=== PATIENT | female | born 1940 | race Caucasian/White ===

== ENCOUNTER 2017-06-05 01:35 | Inpatient (IN) | payer MEDICARE, OTHER ==
[~2017-06-05] VITALS: Ht 162.6 cm; Wt 75.7 kg
[2017-06-05 03:00] VITALS: BP 118/57
[2017-06-05] MEDS ORDERED: ONDANSETRON PF 4 MG/2 ML VIAL. IV PRN (04:00)
[2017-06-05] MEDS ORDERED: CARI350T PO (04:59)
[2017-06-05] MEDS ORDERED: HYDR-2762 PO (04:59)
[2017-06-05] MEDS ORDERED: ASPI-482 PO (04:59)
[2017-06-05] MEDS ORDERED: MULT-658 PO (04:59)
[2017-06-05] MEDS ORDERED: LEVO88TA4 PO (04:59)
[2017-06-05] MEDS ORDERED: QUIN10TA15 PO (04:59)
[2017-06-05] MEDS ORDERED: PIOG1TAB34 PO (04:59)
[2017-06-05] MEDS ORDERED: HYDR-971 PO (04:59)
[2017-06-05] MEDS ORDERED: CHOL10003 PO (04:59)
[2017-06-05] MEDS ORDERED: ATOR40TA59 PO (04:59)
[2017-06-05] MEDS: IV NORMAL SALINE 1000ML BAG 1,000 ML IV SCH ×3 (05:13→23:14)
[2017-06-05 05:30] LABS: BASO % 1 % (0-3); EOS % 0 % (0-3); HEMATOCRIT 32.6 % (36.0-47.0); LYMPH # 0.6 x10^3/uL (1.0-4.8); LYMPH % 6 % (24-48); MEAN CORPUSCULAR HEMOGLOBIN 31 pg (25-35); MEAN CORPUSCULAR HGB CONC 34 g/dL (31-37); MEAN CORPUSCULAR VOLUME 90 fL (79-100); MONO % 8 % (0-9); NEUT % 85 % (31-73); PLATELET COUNT 257 x10^3/uL (140-400); RED CELL DISTRIBUTION WIDTH 13.7 % (11.5-14.5); WHITE BLOOD COUNT 9.9 x10^3/uL (4.0-11.0)
[2017-06-05 05:57] LABS: INR 1.1 (0.8-1.1); PROTHROMBIN TIME PATIENT 13.2 SEC (11.7-14.0)
[2017-06-05 06:03] LABS: CALCIUM 8.6 mg/dL (8.5-10.1); CREATININE 3.4 mg/dL (0.6-1.0); GFR 13.1; POTASSIUM 3.7 mmol/L (3.5-5.1)
[2017-06-05 07:00] VITALS: BP 122/68
[2017-06-05] MEDS: fentaNYL PF VIAL 100 MCG/2 ML VIAL IV PRN ×2 (09:15→17:49)
--- NOTE | 2017-06-05 10:29 | PDOC2 ---
CONSULT Date of Consult Date of Consult DATE: 06/05/17 TIME: 10:24 Reason for Consult Reason for Consult: abd pain and vomiting Referring Physician Referring Physician: Shreyas Identification/Chief Complaint Chief Complaint back pain Problems: Source Source: Patient History of Present Illness Reason for Visit: 77yo female that has been having problems with chronic back pain. Recently, worse had a couple of injections from PCP and on oral pain meds. Developed trouble having bm's not gone in 10 days developed vomiting last night. No more vomiting since admission. Past Medical History Cardiovascular: No pertinent hx Pulmonary: No pertinent hx GI: No pertinent hx Heme/Onc: No pertinent hx Hepatobiliary: No pertinent hx Psych: No pertinent hx Musculoskeletal: low back pain Rheumatologic: No pertinent hx Infectious disease: No pertinent hx ENT: No pertinent hx Renal/: No pertinent hx Endocrine: No pertinent hx Dermatology: No pertinent hx Past Surgical History Past Surgical History: No pertinent history Family History Family History: No Significant Social History No ALCOHOL: none Drugs: None Lives: with Family Current Medications Current Medications Current Medications Sodium Chloride 1,000 ml @ 75 mls/hr [id number] IV Last administered on 05:13; Start 06/05/17 at 04:00 Fentanyl Citrate (Fentanyl 2ml Vial) 50 mcg PRN Q2HR PRN IV SEVERE PAIN Last administered on 06/05/17 09:15; Start 06/05/17 at 04:00 Ondansetron HCl (Zofran) 4 mg PRN Q6HRS PRN IV NAUSEA/VOMITING; Start 06/05/17 at 04:00 Ceftriaxone Sodium 1 gm/ Dextrose 50 ml @ 100 mls/hr Q24H IV ; Start 06/05/17 at 04:00; Status UNV Ceftriaxone Sodium (Rocephin) 1 gm Q24H IVP ; Start 06/05/17 at 22:00 Aspirin (Ecotrin) 81 mg DAILY PO ; Start 06/06/17 at 09:00; Status UNV Atorvastatin Calcium (Lipitor) 40 mg DAILY PO ; Start 06/06/17 at 09:00; Status UNV Carisoprodol (Soma) 350 mg BID PO ; Start 06/05/17 at 21:00; Status UNV Vitamin D (Vitamin D3) 1,000 unit DAILY PO ; Start 06/06/17 at 09:00; Status UNV Acetaminophen/ Hydrocodone Bitart (Lortab 7.5/325) 1 tab PRN Q6HRS PRN PO PAIN ; Start 06/05/17 at 10:15; Status UNV Acetaminophen/ Hydrocodone Bitart (Lortab 5/325) 1 tab PRN Q6HRS PRN PO PAIN; Start 06/05/17 at 10:15; Status UNV Levothyroxine Sodium (Synthroid) 88 mcg DAILY PO ; Start 06/06/17 at 09:00; Status UNV Non-Formulary Medication 1 each DAILY PO ; Start 06/06/17 at 09:00; Status UNV Non-Formulary Medication 1 tab DAILY PO ; Start 06/06/17 at 09:00; Status UNV Magnesium Citrate (Citroma) 296 ml 1X ONCE PO ; Start 06/05/17 at 10:30; Stop 06/05/17 at 10:31; Status UNV Active Scripts Active Reported Vitamin D3 (Cholecalciferol (Vitamin D3)) 1,000 Unit Tablet 1 Tab PO DAILY Soma (Carisoprodol) 350 Mg Tablet 1 Tab PO BID Quinapril Hcl 10 Mg Tablet 1 Tab PO DAILY Pioglitazone-Metformin 15-850 (Pioglitazone Hcl/Metformin Hcl) 1 Each Tablet 1 Each PO DAILY Levothyroxine Sodium 88 Mcg Tablet 1 Tab PO DAILY Hydrocodone-Apap 7.5-325 (Hydrocodone Bit/Acetaminophen) 1 Each Tablet 1 Tab PO PRN Q6HRS PRN [place] 5-325 Tablet (Acetaminophen/Hydrocodone Bitart) 1 Each Tablet 1 Tab PO PRN Q6HRS PRN Centrum Silver Tablet (Multivits-Min/Fa/Lycopene/Lut) 1 Each Tablet 1 Each PO Atorvastatin Calcium 40 Mg Tablet 1 Tab PO DAILY Aspir 81 (Aspirin) 81 Mg Tablet. 1 Tab PO DAILY Allergies Allergies: Coded Allergies: No Known Drug Allergies (Unverified , 05/01/14) ROS Gastrointestinal: Yes Vomiting, Yes Abdominal Pain, Yes Constipation Physical Exam General: Alert, Oriented X3, Cooperative, No acute distress HEENT: Atraumatic Lungs: Clear to auscultation Heart: Regular rate Abdomen: Normal bowel sounds, Soft, No tenderness Extremities: No edema Skin: No significant lesion Neuro: Normal speech Psych/Mental Status: Mental status NL Vitals VITALS Vital Signs Date Time Temp Pulse Resp B/P (MAP) Pulse Ox O2 Delivery O2 Flow Rate FiO2 06/05/17 09:15 Room Air 06/05/17 07:00 97.8 74 16 122/68 (86) 97 97.8 Labs Labs Laboratory Tests Test 06/05/17 05:15 06/05/17 07:24 White Blood Count 9.9 x10^3/uL (4.0-11.0) Red Blood Count 3.60 x10^6/uL (3.50-5.40) Hemoglobin 11.0 g/dL (12.0-15.5) Hematocrit 32.6 % (36.0-47.0) Mean Corpuscular Volume 90 fL (79-100) Mean Corpuscular Hemoglobin 31 pg (25-35) Mean Corpuscular Hemoglobin Concent 34 g/dL (31-37) Red Cell Distribution Width 13.7 % (11.5-14.5) Platelet Count 257 x10^3/uL (140-400) Neutrophils (%) (Auto) 85 % (31-73) Lymphocytes (%) (Auto) 6 % (24-48) Monocytes (%) (Auto) 8 % (0-9) Eosinophils (%) (Auto) 0 % (0-3) Basophils (%) (Auto) 1 % (0-3) Neutrophils # (Auto) 8.4 x10^3uL (1.8-7.7) Lymphocytes # (Auto) 0.6 x10^3/uL (1.0-4.8) Monocytes # (Auto) 0.8 x10^3/uL (0.0-1.1) Eosinophils # (Auto) 0.0 x10^3/uL (0.0-0.7) Basophils # (Auto) 0.0 x10^3/uL (0.0-0.2) Prothrombin Time 13.2 SEC (11.7-14.0) Prothromb Time International Ratio 1.1 (0.8-1.1) Activated Partial Thromboplast Time 22 SEC (24-38) Sodium Level 136 mmol/L (136-145) Potassium Level 3.7 mmol/L (3.5-5.1) Chloride Level 101 mmol/L (98-107) Carbon Dioxide Level 20 mmol/L (21-32) Anion Gap 15 (6-14) Blood Urea Nitrogen 130 mg/dL (7-20) Creatinine 3.4 mg/dL (0.6-1.0) Estimated GFR (Cockcroft-Gault) 13.1 Glucose Level 137 mg/dL (70-99) Calcium Level 8.6 mg/dL (8.5-10.1) Glucose (Fingerstick) 110 mg/dL (70-99) Laboratory Tests Test 06/05/17 05:15 06/05/17 07:24 White Blood Count 9.9 x10^3/uL (4.0-11.0) Red Blood Count 3.60 x10^6/uL (3.50-5.40) Hemoglobin 11.0 g/dL (12.0-15.5) Hematocrit 32.6 % (36.0-47.0) Mean Corpuscular Volume 90 fL (79-100) Mean Corpuscular Hemoglobin 31 pg (25-35) Mean Corpuscular Hemoglobin Concent 34 g/dL (31-37) Red Cell Distribution Width 13.7 % (11.5-14.5) Platelet Count 257 x10^3/uL (140-400) Neutrophils (%) (Auto) 85 % (31-73) Lymphocytes (%) (Auto) 6 % (24-48) Monocytes (%) (Auto) 8 % (0-9) Eosinophils (%) (Auto) 0 % (0-3) Basophils (%) (Auto) 1 % (0-3) Neutrophils # (Auto) 8.4 x10^3uL (1.8-7.7) Lymphocytes # (Auto) 0.6 x10^3/uL (1.0-4.8) Monocytes # (Auto) 0.8 x10^3/uL (0.0-1.1) Eosinophils # (Auto) 0.0 x10^3/uL (0.0-0.7) Basophils # (Auto) 0.0 x10^3/uL (0.0-0.2) Prothrombin Time 13.2 SEC (11.7-14.0) Prothromb Time International Ratio 1.1 (0.8-1.1) Activated Partial Thromboplast Time 22 SEC (24-38) Sodium Level 136 mmol/L (136-145) Potassium Level 3.7 mmol/L (3.5-5.1) Chloride Level 101 mmol/L (98-107) Carbon Dioxide Level 20 mmol/L (21-32) Anion Gap 15 (6-14) Blood Urea Nitrogen 130 mg/dL (7-20) Creatinine 3.4 mg/dL (0.6-1.0) Estimated GFR (Cockcroft-Gault) 13.1 Glucose Level 137 mg/dL (70-99) Calcium Level 8.6 mg/dL (8.5-10.1) Glucose (Fingerstick) 110 mg/dL (70-99) Assessment/Plan Assessment/Plan Constipation from narcotic use Start Miralax No surgical indication NAJMA TAPIA MD Jun 05, 2017 10:29 am
[2017-06-05] MEDS ORDERED: MAGNESIUM CITRATE 296 ML SOLUTION. PO ONE (10:30)
[2017-06-05] MEDS ORDERED: LISINOPRIL 10 MG TABLET PO SCH (11:00)
[2017-06-05] MEDS: CARISOPRODOL 350 MG TABLET PO SCH ×2 (11:00→20:49)
--- NOTE | 2017-06-05 11:04 | HP ---
ADMIT DATE: 06/05/2017 CHIEF COMPLAINT: Abdominal pain and back pain. HISTORY OF PRESENT ILLNESS: The patient is a pleasant elderly female who presented initially to [facility] ER with complaints of back pain, abdominal pain. They did a CAT scan there. It did show a thickened appendix. Her gallbladder also had some sludge. Instantly on her labs, she had a BUN of and a creatinine of . Her lipase is also high at almost 700. The ER doctor called me from there. I went ahead and accepted the patient. She is now being examined in room 438, here in our medical floor. Dr. Melvin has just seen her, he feels like this possibly a lot of this could be caused from her constipation and dehydration. PAST MEDICAL HISTORY: Diabetes, hypothyroidism, hyperlipidemia, carpal tunnel surgeries. ALLERGIES: None. FAMILY HISTORY: Noncontributory. SOCIAL HISTORY: She lives alone. She does not drink, smoke or take drugs. She is retired. 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 MEDICATIONS: Reviewed, please refer to the MRAD. REVIEW OF SYSTEMS: GENERAL: No history of weight change, weakness or fevers. SKIN: No bruising, hair changes or rashes. EYES: No blurred, double or loss of vision. NOSE AND THROAT: No history of nosebleeds, hoarseness or sore throat. HEART: No history of palpitations, chest pain or shortness of breath on exertion. LUNGS: Denies cough, hemoptysis, wheezing or shortness of breath. GASTROINTESTINAL: Denies changes in appetite, nausea, vomiting, diarrhea. She complains of abdominal distention. She complains of constipation. GENITOURINARY: No history of frequency, urgency, hesitancy or nocturia. NEUROLOGIC: Denies history of numbness, tingling, tremor or weakness. PSYCHIATRIC: No history of panic, anxiety or depression. ENDOCRINE: No history of heat or cold intolerance, polyuria or polydipsia. EXTREMITIES: Denies muscle weakness, joint pain, pain on walking or stiffness. MUSCULOSKELETAL: She complains of some back pain. PHYSICAL EXAMINATION: GENERAL: She is alert, soft spoken, slightly confused, but her daughter who is here with her, very good support for her as an RN, she states this might be her meds. VITAL SIGNS: Stable. HEART: Tones seem normal. ABDOMEN: Soft, minimal tenderness. EXTREMITIES: No obvious edema. PSYCHIATRIC: She might be a little depressed, but again she is on some meds and maybe she just has a little flat affect today. Her daughter states she is depressed. LABORATORY DATA: Her urinalysis did show UTI with leukocyte esterase and occasional white cells. White count 11, hemoglobin 12, platelets 304. Electrolytes: Sodium is 134, potassium 3.7, chloride 96, bicarbonate 21, BUN 145, creatinine 4.0. D-dimer is also high at 4.69. ASSESSMENT AND PLAN: An elderly female with multiple issues, but clinically stable. She certainly is constipated. We are going to order her a bottle of mag citrate. I just discussed the case with the nurse and her daughter who is also a nurse. We did consult General Surgery, who just saw the patient, Dr. Melvin. He feels like there is no surgical intervention required at this time. Regarding the acute renal failure, I am not sure if this might be chronic as well, but nevertheless we are going give her normal saline at 75 an hour and consult Nephrology. Check frequent labs, continue her home meds. Regarding the mild urinary tract infection, we will give her some IV antibiotics. PT, OT to evaluate and treat. alf evaluation if family agrees. LOCO POLO DO DR: DAVIDE/edmundo JOB#: [id number] / [id number]
[2017-06-05 11:15] VITALS: BP 125/70
[2017-06-05] MEDS ORDERED: PIOGLITAZONE 15 MG TABLET. PO SCH (11:30)
--- NOTE | 2017-06-05 12:05 | PDOC2 ---
CONSULT Date of Consult Date of Consult DATE: 06/05/17 TIME: 11:58 Reason for Consult Reason for Consult: RENAL FAILURE Referring Physician Referring Physician: MELANI Identification/Chief Complaint Chief Complaint ABD PAIN Problems: Source Source: Chart review History of Present Illness Reason for Visit: THIS IS A 77 YR OLD WITH ABD PAIN. SHE IS ALSO NOTED TO HAVE SACRAL AREA PAIN. IMAGING STUDIES SHOWED BILATERAL SACRAL FRACTURE AND ? L 5 COMPRESSION FRACTURE. NO CKD HX NOTED. NO HX PER PT AND DAUGHTER. SHE IS NOTED TO HAVE A BUN OF 130 AND A CR OF 3.4. HX NOTABLE FOR DAILY USE OF IBUPROFEN LAST COUPLE WEEKS. SHE HAS ALSO BEEN ON QUINAPRIL. PT ALSO HAS HAD N/V WITH ER ABD PAIN. HAD EMESIS ABOUT 4-5 TIMES LAST COUPLE DAYS. KIDNEYS WERE NOTED TO BE MORPHOLOGICALLY UNREMARKABLE ON CT DONE IN [place] Past Medical History Cardiovascular: No pertinent hx Pulmonary: No pertinent hx GI: No pertinent hx Heme/Onc: No pertinent hx Hepatobiliary: No pertinent hx Psych: No pertinent hx Musculoskeletal: low back pain Rheumatologic: No pertinent hx Infectious disease: No pertinent hx ENT: No pertinent hx Renal/: No pertinent hx Endocrine: No pertinent hx Dermatology: No pertinent hx Past Surgical History Past Surgical History: No pertinent history Family History Family History: No Significant Social History No ALCOHOL: none Drugs: None Lives: with Family Current Medications Current Medications Current Medications Sodium Chloride 1,000 ml @ 75 mls/hr [id number] IV Last administered on 05:13; Start 06/05/17 at 04:00 Fentanyl Citrate (Fentanyl 2ml Vial) 50 mcg PRN Q2HR PRN IV SEVERE PAIN Last administered on 06/05/17 09:15; Start 06/05/17 at 04:00 Ondansetron HCl (Zofran) 4 mg PRN Q6HRS PRN IV NAUSEA/VOMITING; Start 06/05/17 at 04:00 Ceftriaxone Sodium 1 gm/ Dextrose 50 ml @ 100 mls/hr Q24H IV ; Start 06/05/17 at 04:00; Status UNV Ceftriaxone Sodium (Rocephin) 1 gm Q24H IVP ; Start 06/05/17 at 22:00 Aspirin (Ecotrin) 81 mg DAILY PO ; Start 06/05/17 at 11:00 Atorvastatin Calcium (Lipitor) 40 mg QHS PO ; Start 06/05/17 at 21:00 Carisoprodol (Soma) 350 mg BID PO ; Start 06/05/17 at 11:00 Vitamin D (Vitamin D3) 1,000 unit DAILY PO ; Start 06/05/17 at 11:00 Acetaminophen/ Hydrocodone Bitart (Lortab 7.5/325) 1 tab PRN Q6HRS PRN PO PAIN ; Start 06/05/17 at 10:15 Acetaminophen/ Hydrocodone Bitart (Lortab 5/325) 1 tab PRN Q6HRS PRN PO PAIN; Start 06/05/17 at 10:15 Levothyroxine Sodium (Synthroid) 88 mcg DAILY07 PO ; Start 06/06/17 at 07:00 Pioglitazone HCl (Actos) 15 mg DAILY PO ; Start 06/05/17 at 11:30; Stop at 11:30; Status DC Lisinopril (Prinivil) 10 mg DAILY PO ; Start 06/05/17 at 11:00 Magnesium Citrate (Citroma) 296 ml 1X ONCE PO ; Start 06/05/17 at 10:30; Stop 06/05/17 at 10:31; Status DC Polyethylene Glycol (miraLAX PACKET) 17 gm DAILY PO ; Start 06/05/17 at 11:00 Metformin HCl (Glucophage) 850 mg DAILY PO ; Start 06/06/17 at 09:00; Stop 04/13 at 09:00; Status DC Active Scripts Active Reported Vitamin D3 (Cholecalciferol (Vitamin D3)) 1,000 Unit Tablet 1 Tab PO DAILY Soma (Carisoprodol) 350 Mg Tablet 1 Tab PO BID Quinapril Hcl 10 Mg Tablet 1 Tab PO DAILY Pioglitazone-Metformin 15-850 (Pioglitazone Hcl/Metformin Hcl) 1 Each Tablet 1 Each PO DAILY Levothyroxine Sodium 88 Mcg Tablet 1 Tab PO DAILY Hydrocodone-Apap 7.5-325 (Hydrocodone Bit/Acetaminophen) 1 Each Tablet 1 Tab PO PRN Q6HRS PRN [place] 5-325 Tablet (Acetaminophen/Hydrocodone Bitart) 1 Each Tablet 1 Tab PO PRN Q6HRS PRN Centrum Silver Tablet (Multivits-Min/Fa/Lycopene/Lut) 1 Each Tablet 1 Each PO Atorvastatin Calcium 40 Mg Tablet 1 Tab PO DAILY Aspir 81 (Aspirin) 81 Mg Tablet. 1 Tab PO DAILY Allergies Allergies: Coded Allergies: No Known Drug Allergies (Unverified , 05/01/14) ROS General: YES: Fatigue, Malaise, Appetite PSYCHOLOGICAL ROS: YES: Anxiety Eyes: Yes Decreased vision HEENT: YES: Heacaches Respiratory: YES: Cough Cardiovascular: yes Chest Pain, yes Lt Headedness Gastrointestinal: Yes Nausea, Yes Vomiting, Yes Abdominal Pain, Yes Constipation Genitourinary: YES Other (NO CHANGE, OCC NOCTURIA) Musculoskeletal: Yes Joint Swelling Neurological: Yes Weakness Skin: Yes Dry Skin Physical Exam General: Alert, Oriented X3, Cooperative, No acute distress, mild distress HEENT: Atraumatic, PERRLA, EOMI, Other (DRY MUCOSA) Lungs: Clear to auscultation Heart: Regular rate, Normal S1, Normal S2 Abdomen: Normal bowel sounds, Soft Extremities: No clubbing Neuro: Normal speech, Cranial nerves 3-12 NL Psych/Mental Status: Mental status NL, Mood NL MUSCULOSKELETAL: No joint tenderness, No deformity, No swelling Vitals VITALS Vital Signs Date Time Temp Pulse Resp B/P (MAP) Pulse Ox O2 Delivery O2 Flow Rate FiO2 06/05/17 11:15 98.2 71 16 125/70 (88) 93 Room Air 98.2 Labs Labs Laboratory Tests Test 06/05/17 05:15 06/05/17 07:24 06/05/17 10:57 White Blood Count 9.9 x10^3/uL (4.0-11.0) Red Blood Count 3.60 x10^6/uL (3.50-5.40) Hemoglobin 11.0 g/dL (12.0-15.5) Hematocrit 32.6 % (36.0-47.0) Mean Corpuscular Volume 90 fL (79-100) Mean Corpuscular Hemoglobin 31 pg (25-35) Mean Corpuscular Hemoglobin Concent 34 g/dL (31-37) Red Cell Distribution Width 13.7 % (11.5-14.5) Platelet Count 257 x10^3/uL (140-400) Neutrophils (%) (Auto) 85 % (31-73) Lymphocytes (%) (Auto) 6 % (24-48) Monocytes (%) (Auto) 8 % (0-9) Eosinophils (%) (Auto) 0 % (0-3) Basophils (%) (Auto) 1 % (0-3) Neutrophils # (Auto) 8.4 x10^3uL (1.8-7.7) Lymphocytes # (Auto) 0.6 x10^3/uL (1.0-4.8) Monocytes # (Auto) 0.8 x10^3/uL (0.0-1.1) Eosinophils # (Auto) 0.0 x10^3/uL (0.0-0.7) Basophils # (Auto) 0.0 x10^3/uL (0.0-0.2) Prothrombin Time 13.2 SEC (11.7-14.0) Prothromb Time International Ratio 1.1 (0.8-1.1) Activated Partial Thromboplast Time 22 SEC (24-38) Sodium Level 136 mmol/L (136-145) Potassium Level 3.7 mmol/L (3.5-5.1) Chloride Level 101 mmol/L (98-107) Carbon Dioxide Level 20 mmol/L (21-32) Anion Gap 15 (6-14) Blood Urea Nitrogen 130 mg/dL (7-20) Creatinine 3.4 mg/dL (0.6-1.0) Estimated GFR (Cockcroft-Gault) 13.1 Glucose Level 137 mg/dL (70-99) Calcium Level 8.6 mg/dL (8.5-10.1) Glucose (Fingerstick) 110 mg/dL (70-99) 108 mg/dL (70-99) Laboratory Tests Test 06/05/17 05:15 06/05/17 07:24 06/05/17 10:57 White Blood Count 9.9 x10^3/uL (4.0-11.0) Red Blood Count 3.60 x10^6/uL (3.50-5.40) Hemoglobin 11.0 g/dL (12.0-15.5) Hematocrit 32.6 % (36.0-47.0) Mean Corpuscular Volume 90 fL (79-100) Mean Corpuscular Hemoglobin 31 pg (25-35) Mean Corpuscular Hemoglobin Concent 34 g/dL (31-37) Red Cell Distribution Width 13.7 % (11.5-14.5) Platelet Count 257 x10^3/uL (140-400) Neutrophils (%) (Auto) 85 % (31-73) Lymphocytes (%) (Auto) 6 % (24-48) Monocytes (%) (Auto) 8 % (0-9) Eosinophils (%) (Auto) 0 % (0-3) Basophils (%) (Auto) 1 % (0-3) Neutrophils # (Auto) 8.4 x10^3uL (1.8-7.7) Lymphocytes # (Auto) 0.6 x10^3/uL (1.0-4.8) Monocytes # (Auto) 0.8 x10^3/uL (0.0-1.1) Eosinophils # (Auto) 0.0 x10^3/uL (0.0-0.7) Basophils # (Auto) 0.0 x10^3/uL (0.0-0.2) Prothrombin Time 13.2 SEC (11.7-14.0) Prothromb Time International Ratio 1.1 (0.8-1.1) Activated Partial Thromboplast Time 22 SEC (24-38) Sodium Level 136 mmol/L (136-145) Potassium Level 3.7 mmol/L (3.5-5.1) Chloride Level 101 mmol/L (98-107) Carbon Dioxide Level 20 mmol/L (21-32) Anion Gap 15 (6-14) Blood Urea Nitrogen 130 mg/dL (7-20) Creatinine 3.4 mg/dL (0.6-1.0) Estimated GFR (Cockcroft-Gault) 13.1 Glucose Level 137 mg/dL (70-99) Calcium Level 8.6 mg/dL (8.5-10.1) Glucose (Fingerstick) 110 mg/dL (70-99) 108 mg/dL (70-99) Assessment/Plan Assessment/Plan IMP CHRISTIN-ATN DEHYDRATION BILATERAL SACRAL FRACTION DM II HTN CONSTIPATION PLAN HOLD HER NAHID-I AND IBUPROFEN USE HOLD HER METFORMIN HYDRATE ENC PO CHRIS GILBERT MD Jun 05, 2017 12:05
--- NOTE | 2017-06-05 12:25 | PDOC2 ---
JOSE E ARNOLD [employer]PERVISOR [employer] ATTENDANT 06/05/17 1225: CARDIAC CONSULT DATE OF CONSULT Date of Consult DATE: 06/05/17 TIME: 12:04 REASON FOR CONSULT Reason for Consult: elevated d dimer HISTORY OF PRESENT ILLNESS HISTORY OF PRESENT ILLNESS Ms sierra is a 77 year old female with history of moderate non obstructive coronary artery disease, hypertension, hyperlipidemia and venous insufficiency. She began having difficulties with low bask and hip pain for which she received a steroid injection with relief. she then developed pain in the opposite hip, was managed with oral pain medications. Yesterday she was apparently found by her daughter to be confused and vomiting so taken to the ED at [facility]. She was found to have sacral fractures and L5 fractures as well as cholecystitis so transferred to [facility] for management. She was additionally noted to have an elevated d dimer so consult was called. she denies any chest discomfort or dyspnea. She does report some mild dyspnea on exertion recently. She denies palpitations, lightheadedness or syncope. She denies any falls recently but does report a fall in July where she fell forward after tripping on something. PAST MEDICAL HISTORY Past Medical History moderate non obstructive coronary artery disease by cath, hypertension, hyperlipidemia, diabetes mellitus, hypothyroidism, venous insufficiency s/p ablation of bilateral saphenous veins, chronic trochanteric bursitis PAST SURGICAL HISTORY Past Surgical History knee surgery FAMILY HISTORY Family History heart disease in mother and father SOCIAL HISTORY Social History non smoker, no significant ETOH, no illicit drugs CURRENT MEDICATIONS CURRENT MEDICATIONS Current Medications Medications (Trade) Dose Ordered Sig/Trever Route PRN Reason Start Time Stop Time Status Last Admin Dose Admin Sodium Chloride 1,000 ml @ 75 mls/hr [id number] IV 06/05/17 04:00 06/05/17 05:13 Fentanyl Citrate (Fentanyl 2ml Vial) 50 mcg PRN Q2HR PRN IV SEVERE PAIN 06/05/17 04:00 06/05/17 09:15 ALLERGIES ALLERGIES: Coded Allergies: No Known Drug Allergies (Unverified , 05/01/14) ROS Review of System as per HPI PHYSICAL EXAM General: Alert, Oriented X3, Cooperative, mild distress HEENT: Atraumatic, EOMI Lungs: Clear to auscultation, Normal air movement Heart: Regular rate, Normal S1, Normal S2, Other (no gallops clicks or rubs) Abdomen: Normal bowel sounds, Soft Extremities: No cyanosis, No edema, Normal pulses Neuro: Normal speech Psych/Mental Status: Mental status NL, Mood NL VITALS VITALS Vital Signs Date Time Temp Pulse Resp B/P (MAP) Pulse Ox O2 Delivery O2 Flow Rate FiO2 06/05/17 11:15 98.2 71 16 125/70 (88) 93 Room Air 98.2 LABS Lab: Laboratory Tests Test 06/05/17 05:15 06/05/17 07:24 06/05/17 10:57 White Blood Count 9.9 x10^3/uL (4.0-11.0) Red Blood Count 3.60 x10^6/uL (3.50-5.40) Hemoglobin 11.0 g/dL (12.0-15.5) Hematocrit 32.6 % (36.0-47.0) Mean Corpuscular Volume 90 fL (79-100) Mean Corpuscular Hemoglobin 31 pg (25-35) Mean Corpuscular Hemoglobin Concent 34 g/dL (31-37) Red Cell Distribution Width 13.7 % (11.5-14.5) Platelet Count 257 x10^3/uL (140-400) Neutrophils (%) (Auto) 85 % (31-73) Lymphocytes (%) (Auto) 6 % (24-48) Monocytes (%) (Auto) 8 % (0-9) Eosinophils (%) (Auto) 0 % (0-3) Basophils (%) (Auto) 1 % (0-3) Neutrophils # (Auto) 8.4 x10^3uL (1.8-7.7) Lymphocytes # (Auto) 0.6 x10^3/uL (1.0-4.8) Monocytes # (Auto) 0.8 x10^3/uL (0.0-1.1) Eosinophils # (Auto) 0.0 x10^3/uL (0.0-0.7) Basophils # (Auto) 0.0 x10^3/uL (0.0-0.2) Prothrombin Time 13.2 SEC (11.7-14.0) Prothromb Time International Ratio 1.1 (0.8-1.1) Activated Partial Thromboplast Time 22 SEC (24-38) Sodium Level 136 mmol/L (136-145) Potassium Level 3.7 mmol/L (3.5-5.1) Chloride Level 101 mmol/L (98-107) Carbon Dioxide Level 20 mmol/L (21-32) Anion Gap 15 (6-14) Blood Urea Nitrogen 130 mg/dL (7-20) Creatinine 3.4 mg/dL (0.6-1.0) Estimated GFR (Cockcroft-Gault) 13.1 Glucose Level 137 mg/dL (70-99) Calcium Level 8.6 mg/dL (8.5-10.1) Glucose (Fingerstick) 110 mg/dL (70-99) 108 mg/dL (70-99) IMAGES IMAGES CT abd pelvis at [facility] reviewed ECHOCARDIOGRAM ECHOCARDIOGRAM 10/22/15 LV function was normal. EF 55-60%. normal wall motion. mild aortic regurgitation. grade 1 diastolic dysfunction. STRESS TEST STRESS TEST MPI -2013 normal perfusion. HEART CATH HEART CATH 10/05/12 RCA 30-40% mid. PLB 70% in 2mm vessel LM no significant disease LAD proximal to mid 50% LCX minor luminal irregularities. OM3 tandem lesions of 70% with FFR of 0.94 ASSESSMENT/PLAN ASSESSMENT/PLAN 1. elevated d dimer - check VQ and LE duplex 2. CAD, moderate - angina free. continue medical therapy 3. sacral and L4 fractures - per Ortho 4. ARF - likely secondary to dehydration? renal consulted. 5. hypertension - in light of renal failure, would discontinue lisinopril at this point. pressure is well controlled. add hydralazine if needed. Problems: MARK ESPOSITO MD 06/05/17 1607: CARDIAC CONSULT ALLERGIES ALLERGIES: Coded Allergies: No Known Drug Allergies (Unverified , 05/01/14) ASSESSMENT/PLAN ASSESSMENT/PLAN Patient seen and examined. Agree with STAPLE FIBER WASHER's assessment and plan. Agree with VQ scan and lower extremity venous duplex scan to evaluate elevated d -dimer. CAD status clinically stable. Continue management of sacral and lumbar fractures per orthopedics team. Renal team following for acute on chronic renal insufficiency. Thank you for your consultation. Problems: JOSE E ARNOLD APRN Jun 05, 2017 12:25 MARK ESPOSITO MD Jun 05, 2017 16:07
--- NOTE | 2017-06-05 12:27 | PDOC ---
Provider Note Provider Note Patient's chart reviewed. Dr. Turcios and I reviewed the x-rays and CT scan, which reveal bilateral sacral fractures and L5 endplate fracture. From ortho standpoint, no surgical intervention necessary. Recommended consult to interventional radiology for consideration of possible sacroplasty. Consult placed to JOSE MIGUEL HILL Jun 05, 2017 12:27 pm
--- NOTE | 2017-06-05 13:47 | RAD ---
Ventilation/perfusion lung scan. History: Elevated d-dimer Ventilation study was done using 33 mCi xenon-133. There is mild patchy areas of decreased ventilation possible COPD which tend of filling on later images. Perfusion images were done using 5.5 mCi technetium 99 MAA. There is no segmental perfusion defect. There is no ventilation/perfusion mismatch Impression: 1. Low probability for a pulmonary embolus.
--- NOTE | 2017-06-05 14:01 | PDOC ---
PULMONARY PROGRESS NOTES Vitals Vital Signs Date Time Temp Pulse Resp B/P (MAP) Pulse Ox O2 Delivery O2 Flow Rate FiO2 06/05/17 11:15 98.2 71 16 125/70 (88) 93 Room Air 98.2 Labs Laboratory Tests Test 06/05/17 05:15 06/05/17 07:24 06/05/17 10:57 White Blood Count 9.9 x10^3/uL (4.0-11.0) Red Blood Count 3.60 x10^6/uL (3.50-5.40) Hemoglobin 11.0 g/dL (12.0-15.5) Hematocrit 32.6 % (36.0-47.0) Mean Corpuscular Volume 90 fL (79-100) Mean Corpuscular Hemoglobin 31 pg (25-35) Mean Corpuscular Hemoglobin Concent 34 g/dL (31-37) Red Cell Distribution Width 13.7 % (11.5-14.5) Platelet Count 257 x10^3/uL (140-400) Neutrophils (%) (Auto) 85 % (31-73) Lymphocytes (%) (Auto) 6 % (24-48) Monocytes (%) (Auto) 8 % (0-9) Eosinophils (%) (Auto) 0 % (0-3) Basophils (%) (Auto) 1 % (0-3) Neutrophils # (Auto) 8.4 x10^3uL (1.8-7.7) Lymphocytes # (Auto) 0.6 x10^3/uL (1.0-4.8) Monocytes # (Auto) 0.8 x10^3/uL (0.0-1.1) Eosinophils # (Auto) 0.0 x10^3/uL (0.0-0.7) Basophils # (Auto) 0.0 x10^3/uL (0.0-0.2) Prothrombin Time 13.2 SEC (11.7-14.0) Prothromb Time International Ratio 1.1 (0.8-1.1) Activated Partial Thromboplast Time 22 SEC (24-38) Sodium Level 136 mmol/L (136-145) Potassium Level 3.7 mmol/L (3.5-5.1) Chloride Level 101 mmol/L (98-107) Carbon Dioxide Level 20 mmol/L (21-32) Anion Gap 15 (6-14) Blood Urea Nitrogen 130 mg/dL (7-20) Creatinine 3.4 mg/dL (0.6-1.0) Estimated GFR (Cockcroft-Gault) 13.1 Glucose Level 137 mg/dL (70-99) Calcium Level 8.6 mg/dL (8.5-10.1) Glucose (Fingerstick) 110 mg/dL (70-99) 108 mg/dL (70-99) Laboratory Tests Test 06/05/17 05:15 06/05/17 07:24 06/05/17 10:57 White Blood Count 9.9 x10^3/uL (4.0-11.0) Red Blood Count 3.60 x10^6/uL (3.50-5.40) Hemoglobin 11.0 g/dL (12.0-15.5) Hematocrit 32.6 % (36.0-47.0) Mean Corpuscular Volume 90 fL (79-100) Mean Corpuscular Hemoglobin 31 pg (25-35) Mean Corpuscular Hemoglobin Concent 34 g/dL (31-37) Red Cell Distribution Width 13.7 % (11.5-14.5) Platelet Count 257 x10^3/uL (140-400) Neutrophils (%) (Auto) 85 % (31-73) Lymphocytes (%) (Auto) 6 % (24-48) Monocytes (%) (Auto) 8 % (0-9) Eosinophils (%) (Auto) 0 % (0-3) Basophils (%) (Auto) 1 % (0-3) Neutrophils # (Auto) 8.4 x10^3uL (1.8-7.7) Lymphocytes # (Auto) 0.6 x10^3/uL (1.0-4.8) Monocytes # (Auto) 0.8 x10^3/uL (0.0-1.1) Eosinophils # (Auto) 0.0 x10^3/uL (0.0-0.7) Basophils # (Auto) 0.0 x10^3/uL (0.0-0.2) Prothrombin Time 13.2 SEC (11.7-14.0) Prothromb Time International Ratio 1.1 (0.8-1.1) Activated Partial Thromboplast Time 22 SEC (24-38) Sodium Level 136 mmol/L (136-145) Potassium Level 3.7 mmol/L (3.5-5.1) Chloride Level 101 mmol/L (98-107) Carbon Dioxide Level 20 mmol/L (21-32) Anion Gap 15 (6-14) Blood Urea Nitrogen 130 mg/dL (7-20) Creatinine 3.4 mg/dL (0.6-1.0) Estimated GFR (Cockcroft-Gault) 13.1 Glucose Level 137 mg/dL (70-99) Calcium Level 8.6 mg/dL (8.5-10.1) Glucose (Fingerstick) 110 mg/dL (70-99) 108 mg/dL (70-99) Medications Active Scripts Medications Dose Route/Sig Max Daily Dose Days Date Category Vitamin D3 (Cholecalciferol (Vitamin D3)) 1,000 Unit Tablet 1 Tab PO DAILY 06/05/17 Reported Soma (Carisoprodol) 350 Mg Tablet 1 Tab PO BID 06/05/17 Reported Quinapril Hcl 10 Mg Tablet 1 Tab PO DAILY 06/05/17 Reported Pioglitazone-Metformin 15-850 (Pioglitazone Hcl/Metformin Hcl) 1 Each Tablet 1 Each PO DAILY 06/05/17 Reported Levothyroxine Sodium 88 Mcg Tablet 1 Tab PO DAILY 06/05/17 Reported Hydrocodone-Apap 7.5-325 (Hydrocodone Bit/Acetaminophen) 1 Each Tablet 1 Tab PO PRN Q6HRS PRN 06/05/17 Reported [place] 5-325 Tablet (Acetaminophen/Hydrocodone Bitart) 1 Each Tablet 1 Tab PO PRN Q6HRS PRN 06/05/17 Reported Centrum Silver Tablet (Multivits-Min/Fa/Lycopene/Lut) 1 Each Tablet 1 Each PO 06/05/17 Reported Atorvastatin Calcium 40 Mg Tablet 1 Tab PO DAILY 06/05/17 Reported Aspir 81 (Aspirin) 81 Mg Tablet. 1 Tab PO DAILY 06/05/17 Reported Impression . NO PE WILL S/O CALL IF NEEDED NICOL QUICK MD Jun 05, 2017 14:01
[2017-06-05] MEDS: ASPIRIN ENTERIC COATED 81 MG TABLET.DR. PO SCH (14:06)
[2017-06-05] MEDS: CHOLECALCIFEROL (VITAMIN D3) 1,000 UNIT TABLET PO SCH (14:06)
[2017-06-05] MEDS: POLYETHYLENE GLYCOL 3350 17 GM PACKET. PO SCH (14:06)
[2017-06-05 15:12] VITALS: BP 129/55
[2017-06-05 19:30] VITALS: BP 130/70
[2017-06-05] MEDS: LACTOBACILLUS RHAMNOSUS GG 1 CAPSULE. PO SCH (20:49)
[2017-06-05] MEDS: ATORVASTATIN CALCIUM 40 MG TABLET. PO SCH (20:49)
[2017-06-05] MEDS: HYDROcodone/APAP 7.5/325MG 1 TAB TABLET PO PRN (20:50)
[2017-06-05] MEDS ORDERED: cefTRIAXone IV Push 1 GM VIAL. IVP SCH (22:00)
--- NOTE | 2017-06-05 22:21 | CONS ---
DATE OF CONSULTATION: 06/05/2017 ATTENDING PHYSICIAN: Alba Pritchett DO CONSULTING PHYSICIAN: Nicol Quick MD REASON FOR CONSULTATION: The patient seen in Pulmonary consultation at the request of Dr. Pritchett for positive D-dimer. HISTORY OF PRESENT ILLNESS: The patient is a 77-year-old that presented mainly because of abdominal pain and chronic lower back pain. D-dimer was checked. It was positive. The patient reports no acute onset of shortness of air associated with syncope or near syncopal episodes. No pleuritic type pain. In fact, she was not short of breath at all. D-dimer was performed, which was elevated. She underwent a VQ scan. I reviewed the VQ scan. There are no significant unmatched perfusion defects. PAST MEDICAL HISTORY: Diabetes, hypothyroidism, hyperlipidemia, carpal tunnel release. ALLERGIES: No known drug allergies. SOCIAL HISTORY: The patient has never smoked. She lives alone. FAMILY HISTORY: No family history of thrombophilia. REVIEW OF SYSTEMS: As indicated above; otherwise, the 10-point system was reviewed and negative. CONSTITUTIONAL: No fever or chills. EYES: No changes in visual acuity. HENT: No nasal congestion or sore throat. PULMONARY: As indicated above. CARDIOVASCULAR: No chest pain or pressure. GASTROINTESTINAL: No nausea, vomiting, diarrhea. GENITOURINARY: No dysuria or frequency. MUSCULOSKELETAL: As indicated above. SKIN: No new skin rashes. NEUROLOGIC: No headaches, diplopia or blurred vision. PHYSICAL EXAMINATION: GENERAL: The patient appeared to be of stated age. She was in no respiratory distress. VITAL SIGNS: O2 saturation on room air 93-94%. HEENT: Eyes: The sclerae were nonicteric. NECK: Jugular venous distention was not elevated. No lymphadenopathy. CHEST: Full expansion. LUNGS: Adequate airway flow with no wheezes. CARDIOVASCULAR: Regular rate and rhythm with S1, S2. No S3. ABDOMEN: Soft, nontender, nondistended. EXTREMITIES: No clubbing, cyanosis or edema. NEUROLOGIC: The patient was awake, alert, following commands. A detailed neuro exam was not performed. LABORATORY DATA: Reviewed. White count was normal. Hemoglobin and hematocrit were noted. Electrolytes were noted. BUN and creatinine were elevated. IMPRESSION: 1. Elevated D-dimer, nonspecific, clinical suspicion for pulmonary embolism is close to 0. A VQ scan was negative. No further workup required. 2. Acute kidney injury. 3. Bilateral sacral fractures. 4. Diabetes. 5. Constipation. 6. Hypertension. PLAN: Pulmonary standpoint of view, no further workup required. I will see the patient in followup as needed. Please let me know if I could be of any further assistance. NICOL QUICK MD DR: STEPHANIE/edmundo JOB#: [id number] / [id number]
[2017-06-05 23:00] VITALS: BP 123/64
[2017-06-06] MEDS: fentaNYL PF VIAL 100 MCG/2 ML VIAL IV PRN (02:41)
[2017-06-06 03:16] VITALS: BP 120/65
[2017-06-06 04:30] LABS: BASO % 0 % (0-3); EOS % 2 % (0-3); HEMATOCRIT 31.4 % (36.0-47.0); HEMOGLOBIN 10.5 g/dL (12.0-15.5); LYMPH # 0.5 x10^3/uL (1.0-4.8); LYMPH % 6 % (24-48); MEAN CORPUSCULAR HEMOGLOBIN 30 pg (25-35); MEAN CORPUSCULAR HGB CONC 33 g/dL (31-37); MEAN CORPUSCULAR VOLUME 91 fL (79-100); MONO % 9 % (0-9); NEUT % 83 % (31-73); PLATELET COUNT 253 x10^3/uL (140-400); RED BLOOD COUNT 3.47 x10^6/uL (3.50-5.40); RED CELL DISTRIBUTION WIDTH 13.6 % (11.5-14.5); WHITE BLOOD COUNT 9.5 x10^3/uL (4.0-11.0)
[2017-06-06 05:02] LABS: CALCIUM 8.4 mg/dL (8.5-10.1); CREATININE 1.7 mg/dL (0.6-1.0); GFR 29.2; POTASSIUM 3.5 mmol/L (3.5-5.1)
[2017-06-06] MEDS: LEVOTHYROXINE 88 MCG TABLET PO SCH (06:20)
[2017-06-06 07:44] VITALS: BP 135/65
--- NOTE | 2017-06-06 08:07 | PDOC ---
SURGICAL PROGRESS NOTE Subjective Doing ok, complains of back pain and having several stools all night Vital Signs Vital Signs Date Time Temp Pulse Resp B/P (MAP) Pulse Ox O2 Delivery O2 Flow Rate FiO2 06/06/17 03:16 98.3 78 18 120/65 (83) 97 Room Air 98.3 I&O Intake and Output 06/06/17 07:00 Intake Total 2527 ml Output Total 2300 ml Balance 227 ml Intake Oral 780 ml IV Total 1747 ml Output Urine Total 2300 ml # Bowel Movements 3 PATIENT HAS A MIRAMONTES: No General: Alert, Oriented X3, Cooperative, mild distress Abdomen: Normal bowel sounds, Soft, No tenderness Labs Laboratory Tests Test 06/05/17 05:15 06/05/17 07:24 06/05/17 10:57 06/05/17 16:31 White Blood Count 9.9 x10^3/uL (4.0-11.0) Red Blood Count 3.60 x10^6/uL (3.50-5.40) Hemoglobin 11.0 g/dL (12.0-15.5) Hematocrit 32.6 % (36.0-47.0) Mean Corpuscular Volume 90 fL (79-100) Mean Corpuscular Hemoglobin 31 pg (25-35) Mean Corpuscular Hemoglobin Concent 34 g/dL (31-37) Red Cell Distribution Width 13.7 % (11.5-14.5) Platelet Count 257 x10^3/uL (140-400) Neutrophils (%) (Auto) 85 % (31-73) Lymphocytes (%) (Auto) 6 % (24-48) Monocytes (%) (Auto) 8 % (0-9) Eosinophils (%) (Auto) 0 % (0-3) Basophils (%) (Auto) 1 % (0-3) Neutrophils # (Auto) 8.4 x10^3uL (1.8-7.7) Lymphocytes # (Auto) 0.6 x10^3/uL (1.0-4.8) Monocytes # (Auto) 0.8 x10^3/uL (0.0-1.1) Eosinophils # (Auto) 0.0 x10^3/uL (0.0-0.7) Basophils # (Auto) 0.0 x10^3/uL (0.0-0.2) Prothrombin Time 13.2 SEC (11.7-14.0) Prothromb Time International Ratio 1.1 (0.8-1.1) Activated Partial Thromboplast Time 22 SEC (24-38) Sodium Level 136 mmol/L (136-145) Potassium Level 3.7 mmol/L (3.5-5.1) Chloride Level 101 mmol/L (98-107) Carbon Dioxide Level 20 mmol/L (21-32) Anion Gap 15 (6-14) Blood Urea Nitrogen 130 mg/dL (7-20) Creatinine 3.4 mg/dL (0.6-1.0) Estimated GFR (Cockcroft-Gault) 13.1 Glucose Level 137 mg/dL (70-99) Calcium Level 8.6 mg/dL (8.5-10.1) Glucose (Fingerstick) 110 mg/dL (70-99) 108 mg/dL (70-99) 155 mg/dL (70-99) Test 06/05/17 21:02 06/06/17 03:45 06/06/17 07:48 Glucose (Fingerstick) 126 mg/dL (70-99) 130 mg/dL (70-99) White Blood Count 9.5 x10^3/uL (4.0-11.0) Red Blood Count 3.47 x10^6/uL (3.50-5.40) Hemoglobin 10.5 g/dL (12.0-15.5) Hematocrit 31.4 % (36.0-47.0) Mean Corpuscular Volume 91 fL (79-100) Mean Corpuscular Hemoglobin 30 pg (25-35) Mean Corpuscular Hemoglobin Concent 33 g/dL (31-37) Red Cell Distribution Width 13.6 % (11.5-14.5) Platelet Count 253 x10^3/uL (140-400) Neutrophils (%) (Auto) 83 % (31-73) Lymphocytes (%) (Auto) 6 % (24-48) Monocytes (%) (Auto) 9 % (0-9) Eosinophils (%) (Auto) 2 % (0-3) Basophils (%) (Auto) 0 % (0-3) Neutrophils # (Auto) 7.9 x10^3uL (1.8-7.7) Lymphocytes # (Auto) 0.5 x10^3/uL (1.0-4.8) Monocytes # (Auto) 0.9 x10^3/uL (0.0-1.1) Eosinophils # (Auto) 0.2 x10^3/uL (0.0-0.7) Basophils # (Auto) 0.0 x10^3/uL (0.0-0.2) Sodium Level 144 mmol/L (136-145) Potassium Level 3.5 mmol/L (3.5-5.1) Chloride Level 109 mmol/L (98-107) Carbon Dioxide Level 22 mmol/L (21-32) Anion Gap 13 (6-14) Blood Urea Nitrogen 90 mg/dL (7-20) Creatinine 1.7 mg/dL (0.6-1.0) Estimated GFR (Cockcroft-Gault) 29.2 Glucose Level 119 mg/dL (70-99) Calcium Level 8.4 mg/dL (8.5-10.1) Lipase 569 U/L (73-393) Laboratory Tests Test 06/05/17 10:57 06/05/17 16:31 06/05/17 21:02 06/06/17 03:45 Glucose (Fingerstick) 108 mg/dL (70-99) 155 mg/dL (70-99) 126 mg/dL (70-99) White Blood Count 9.5 x10^3/uL (4.0-11.0) Red Blood Count 3.47 x10^6/uL (3.50-5.40) Hemoglobin 10.5 g/dL (12.0-15.5) Hematocrit 31.4 % (36.0-47.0) Mean Corpuscular Volume 91 fL (79-100) Mean Corpuscular Hemoglobin 30 pg (25-35) Mean Corpuscular Hemoglobin Concent 33 g/dL (31-37) Red Cell Distribution Width 13.6 % (11.5-14.5) Platelet Count 253 x10^3/uL (140-400) Neutrophils (%) (Auto) 83 % (31-73) Lymphocytes (%) (Auto) 6 % (24-48) Monocytes (%) (Auto) 9 % (0-9) Eosinophils (%) (Auto) 2 % (0-3) Basophils (%) (Auto) 0 % (0-3) Neutrophils # (Auto) 7.9 x10^3uL (1.8-7.7) Lymphocytes # (Auto) 0.5 x10^3/uL (1.0-4.8) Monocytes # (Auto) 0.9 x10^3/uL (0.0-1.1) Eosinophils # (Auto) 0.2 x10^3/uL (0.0-0.7) Basophils # (Auto) 0.0 x10^3/uL (0.0-0.2) Sodium Level 144 mmol/L (136-145) Potassium Level 3.5 mmol/L (3.5-5.1) Chloride Level 109 mmol/L (98-107) Carbon Dioxide Level 22 mmol/L (21-32) Anion Gap 13 (6-14) Blood Urea Nitrogen 90 mg/dL (7-20) Creatinine 1.7 mg/dL (0.6-1.0) Estimated GFR (Cockcroft-Gault) 29.2 Glucose Level 119 mg/dL (70-99) Calcium Level 8.4 mg/dL (8.5-10.1) Lipase 569 U/L (73-393) Test 06/06/17 07:48 Glucose (Fingerstick) 130 mg/dL (70-99) Assessment/Plan Constipation resolved with laxitives Back pain No general surgical issues. Problems: NAJMA TAPIA MD Jun 06, 2017 08:07
[2017-06-06] MEDS ORDERED: metFORMIN 850 MG TABLET PO SCH (09:00)
[2017-06-06] MEDS: LACTOBACILLUS RHAMNOSUS GG 1 CAPSULE. PO SCH ×2 (09:08→21:07)
[2017-06-06] MEDS: CHOLECALCIFEROL (VITAMIN D3) 1,000 UNIT TABLET PO SCH (09:08)
[2017-06-06] MEDS: ASPIRIN ENTERIC COATED 81 MG TABLET.DR. PO SCH (09:08)
[2017-06-06] MEDS: CARISOPRODOL 350 MG TABLET PO SCH ×2 (09:08→21:06)
[2017-06-06] MEDS: POLYETHYLENE GLYCOL 3350 17 GM PACKET. PO SCH (09:09)
[2017-06-06] MEDS: IV NORMAL SALINE 1000ML BAG 1,000 ML IV SCH ×2 (09:09→14:35)
[2017-06-06] MEDS: HYDROcodone/APAP 5/325MG 1 TAB TABLET PO PRN ×2 (09:09→14:53)
[2017-06-06 11:08] VITALS: BP 117/67
--- NOTE | 2017-06-06 11:55 | PDOC ---
Renal-Progress Notes Subjective Notes Notes FEELING BETTER History of Present Illness Hx of present illness STABLE Vitals Vitals Vital Signs Date Time Temp Pulse Resp B/P (MAP) Pulse Ox O2 Delivery O2 Flow Rate FiO2 06/06/17 10:39 Room Air 06/06/17 07:44 97.9 85 20 135/65 (88) 95 97.9 Weight Weight [ ] I.O. Intake and Output Intake and Output 06/06/17 07:00 Intake Total 2527 ml Output Total 2300 ml Balance 227 ml Intake Oral 780 ml IV Total 1747 ml Output Urine Total 2300 ml # Bowel Movements 3 Labs Labs Laboratory Tests Test 06/05/17 16:31 06/05/17 21:02 06/06/17 03:45 06/06/17 07:48 Glucose (Fingerstick) 155 mg/dL (70-99) 126 mg/dL (70-99) 130 mg/dL (70-99) White Blood Count 9.5 x10^3/uL (4.0-11.0) Red Blood Count 3.47 x10^6/uL (3.50-5.40) Hemoglobin 10.5 g/dL (12.0-15.5) Hematocrit 31.4 % (36.0-47.0) Mean Corpuscular Volume 91 fL (79-100) Mean Corpuscular Hemoglobin 30 pg (25-35) Mean Corpuscular Hemoglobin Concent 33 g/dL (31-37) Red Cell Distribution Width 13.6 % (11.5-14.5) Platelet Count 253 x10^3/uL (140-400) Neutrophils (%) (Auto) 83 % (31-73) Lymphocytes (%) (Auto) 6 % (24-48) Monocytes (%) (Auto) 9 % (0-9) Eosinophils (%) (Auto) 2 % (0-3) Basophils (%) (Auto) 0 % (0-3) Neutrophils # (Auto) 7.9 x10^3uL (1.8-7.7) Lymphocytes # (Auto) 0.5 x10^3/uL (1.0-4.8) Monocytes # (Auto) 0.9 x10^3/uL (0.0-1.1) Eosinophils # (Auto) 0.2 x10^3/uL (0.0-0.7) Basophils # (Auto) 0.0 x10^3/uL (0.0-0.2) Sodium Level 144 mmol/L (136-145) Potassium Level 3.5 mmol/L (3.5-5.1) Chloride Level 109 mmol/L (98-107) Carbon Dioxide Level 22 mmol/L (21-32) Anion Gap 13 (6-14) Blood Urea Nitrogen 90 mg/dL (7-20) Creatinine 1.7 mg/dL (0.6-1.0) Estimated GFR (Cockcroft-Gault) 29.2 Glucose Level 119 mg/dL (70-99) Calcium Level 8.4 mg/dL (8.5-10.1) Lipase 569 U/L (73-393) Review of Systems Constitutional: yes: weakness, alert, oriented Ears/Nose/Throat: Yes: no symptom reported Eyes: Yes: no symptom reported Pulmonary: Yes no symptom reported Cardiovascular: Yes no symptom reported Gastrointestional: Yes: no symptom reported Genitourinary: Yes: no symptom reported Musculoskeletal: Yes: joint pain Skin: Yes no symptom reported Psychiatric/Neurological: Yes: no symptom reported Endocrine: Yes: no symptom reported Physical Exam General Appearance: no apparent distress Skin: warm Respiratory: bilateral CTA Heart: S1S2 Abdomen: soft, bowel sounds present Genitourinary: bladder flat Extremities: pulses present, no edema Assessment Assessment IMP DEHYDRATION CHRISTIN-BETTER WITH CR DOWN TO 1.7 L5 PLATE FX BILATERAL SACRAL FX DM II HTN PLAN ENC PO DECREASE IVF RATE LABS IN AM CHRIS GILBERT MD Jun 06, 2017 11:55
--- NOTE | 2017-06-06 13:02 | PDOC ---
G I PROGRESS NOTE Reason for Follow-up Abd pain/constipation Subjective Moving small stools Physical Exam Lungs clear CV S1 S2 ABD +BS, soft, mild epigastric tenderness Review of Relevant I have reviewed the following items mikey (where applicable) has been applied. Labs Laboratory Tests Test 06/05/17 05:15 06/05/17 07:24 06/05/17 10:57 06/05/17 16:31 White Blood Count 9.9 x10^3/uL (4.0-11.0) Red Blood Count 3.60 x10^6/uL (3.50-5.40) Hemoglobin 11.0 g/dL (12.0-15.5) Hematocrit 32.6 % (36.0-47.0) Mean Corpuscular Volume 90 fL (79-100) Mean Corpuscular Hemoglobin 31 pg (25-35) Mean Corpuscular Hemoglobin Concent 34 g/dL (31-37) Red Cell Distribution Width 13.7 % (11.5-14.5) Platelet Count 257 x10^3/uL (140-400) Neutrophils (%) (Auto) 85 % (31-73) Lymphocytes (%) (Auto) 6 % (24-48) Monocytes (%) (Auto) 8 % (0-9) Eosinophils (%) (Auto) 0 % (0-3) Basophils (%) (Auto) 1 % (0-3) Neutrophils # (Auto) 8.4 x10^3uL (1.8-7.7) Lymphocytes # (Auto) 0.6 x10^3/uL (1.0-4.8) Monocytes # (Auto) 0.8 x10^3/uL (0.0-1.1) Eosinophils # (Auto) 0.0 x10^3/uL (0.0-0.7) Basophils # (Auto) 0.0 x10^3/uL (0.0-0.2) Prothrombin Time 13.2 SEC (11.7-14.0) Prothromb Time International Ratio 1.1 (0.8-1.1) Activated Partial Thromboplast Time 22 SEC (24-38) Sodium Level 136 mmol/L (136-145) Potassium Level 3.7 mmol/L (3.5-5.1) Chloride Level 101 mmol/L (98-107) Carbon Dioxide Level 20 mmol/L (21-32) Anion Gap 15 (6-14) Blood Urea Nitrogen 130 mg/dL (7-20) Creatinine 3.4 mg/dL (0.6-1.0) Estimated GFR (Cockcroft-Gault) 13.1 Glucose Level 137 mg/dL (70-99) Calcium Level 8.6 mg/dL (8.5-10.1) Glucose (Fingerstick) 110 mg/dL (70-99) 108 mg/dL (70-99) 155 mg/dL (70-99) Test 06/05/17 21:02 06/06/17 03:45 06/06/17 07:48 Glucose (Fingerstick) 126 mg/dL (70-99) 130 mg/dL (70-99) White Blood Count 9.5 x10^3/uL (4.0-11.0) Red Blood Count 3.47 x10^6/uL (3.50-5.40) Hemoglobin 10.5 g/dL (12.0-15.5) Hematocrit 31.4 % (36.0-47.0) Mean Corpuscular Volume 91 fL (79-100) Mean Corpuscular Hemoglobin 30 pg (25-35) Mean Corpuscular Hemoglobin Concent 33 g/dL (31-37) Red Cell Distribution Width 13.6 % (11.5-14.5) Platelet Count 253 x10^3/uL (140-400) Neutrophils (%) (Auto) 83 % (31-73) Lymphocytes (%) (Auto) 6 % (24-48) Monocytes (%) (Auto) 9 % (0-9) Eosinophils (%) (Auto) 2 % (0-3) Basophils (%) (Auto) 0 % (0-3) Neutrophils # (Auto) 7.9 x10^3uL (1.8-7.7) Lymphocytes # (Auto) 0.5 x10^3/uL (1.0-4.8) Monocytes # (Auto) 0.9 x10^3/uL (0.0-1.1) Eosinophils # (Auto) 0.2 x10^3/uL (0.0-0.7) Basophils # (Auto) 0.0 x10^3/uL (0.0-0.2) Sodium Level 144 mmol/L (136-145) Potassium Level 3.5 mmol/L (3.5-5.1) Chloride Level 109 mmol/L (98-107) Carbon Dioxide Level 22 mmol/L (21-32) Anion Gap 13 (6-14) Blood Urea Nitrogen 90 mg/dL (7-20) Creatinine 1.7 mg/dL (0.6-1.0) Estimated GFR (Cockcroft-Gault) 29.2 Glucose Level 119 mg/dL (70-99) Calcium Level 8.4 mg/dL (8.5-10.1) Lipase 569 U/L (73-393) Laboratory Tests Test 06/05/17 16:31 06/05/17 21:02 06/06/17 03:45 06/06/17 07:48 Glucose (Fingerstick) 155 mg/dL (70-99) 126 mg/dL (70-99) 130 mg/dL (70-99) White Blood Count 9.5 x10^3/uL (4.0-11.0) Red Blood Count 3.47 x10^6/uL (3.50-5.40) Hemoglobin 10.5 g/dL (12.0-15.5) Hematocrit 31.4 % (36.0-47.0) Mean Corpuscular Volume 91 fL (79-100) Mean Corpuscular Hemoglobin 30 pg (25-35) Mean Corpuscular Hemoglobin Concent 33 g/dL (31-37) Red Cell Distribution Width 13.6 % (11.5-14.5) Platelet Count 253 x10^3/uL (140-400) Neutrophils (%) (Auto) 83 % (31-73) Lymphocytes (%) (Auto) 6 % (24-48) Monocytes (%) (Auto) 9 % (0-9) Eosinophils (%) (Auto) 2 % (0-3) Basophils (%) (Auto) 0 % (0-3) Neutrophils # (Auto) 7.9 x10^3uL (1.8-7.7) Lymphocytes # (Auto) 0.5 x10^3/uL (1.0-4.8) Monocytes # (Auto) 0.9 x10^3/uL (0.0-1.1) Eosinophils # (Auto) 0.2 x10^3/uL (0.0-0.7) Basophils # (Auto) 0.0 x10^3/uL (0.0-0.2) Sodium Level 144 mmol/L (136-145) Potassium Level 3.5 mmol/L (3.5-5.1) Chloride Level 109 mmol/L (98-107) Carbon Dioxide Level 22 mmol/L (21-32) Anion Gap 13 (6-14) Blood Urea Nitrogen 90 mg/dL (7-20) Creatinine 1.7 mg/dL (0.6-1.0) Estimated GFR (Cockcroft-Gault) 29.2 Glucose Level 119 mg/dL (70-99) Calcium Level 8.4 mg/dL (8.5-10.1) Lipase 569 U/L (73-393) Medications Current Medications Sodium Chloride 1,000 ml @ 75 mls/hr [id number] IV Last administered on 14:05; Start 06/05/17 at 04:00 Fentanyl Citrate (Fentanyl 2ml Vial) 50 mcg PRN Q2HR PRN IV SEVERE PAIN Last administered on 06/06/17 02:41; Start 06/05/17 at 04:00 Ondansetron HCl (Zofran) 4 mg PRN Q6HRS PRN IV NAUSEA/VOMITING; Start 06/05/17 at 04:00 Ceftriaxone Sodium 1 gm/ Dextrose 50 ml @ 100 mls/hr Q24H IV ; Start 06/05/17 at 04:00; Status UNV Ceftriaxone Sodium (Rocephin) 1 gm Q24H IVP Last administered on 06/05/17 22: 11; Start 06/05/17 at 22:00 Aspirin (Ecotrin) 81 mg DAILY PO Last administered on 06/06/17 09:08; Start 06/05/17 at 11:00 Atorvastatin Calcium (Lipitor) 40 mg QHS PO Last administered on 06/05/17 20: 49; Start 06/05/17 at 21:00 Carisoprodol (Soma) 350 mg BID PO Last administered on 06/06/17 09:08; Start 06/05/17 at 11:00 Vitamin D (Vitamin D3) 1,000 unit DAILY PO Last administered on 06/06/17 09: 08; Start 06/05/17 at 11:00 Acetaminophen/ Hydrocodone Bitart (Lortab 7.5/325) 1 tab PRN Q6HRS PRN PO PAIN Last administered on 06/05/17 20:50; Start 06/05/17 at 10:15 Acetaminophen/ Hydrocodone Bitart (Lortab 5/325) 1 tab PRN Q6HRS PRN PO PAIN Last administered on 06/06/17 09:09; Start 06/05/17 at 10:15 Levothyroxine Sodium (Synthroid) 88 mcg DAILY07 PO Last administered on 06:20; Start 06/06/17 at 07:00 Pioglitazone HCl (Actos) 15 mg DAILY PO ; Start 06/05/17 at 11:30; Stop at 11:30; Status DC Lisinopril (Prinivil) 10 mg DAILY PO ; Start 06/05/17 at 11:00; Stop 06/05/17 at 12:05; Status DC Magnesium Citrate (Citroma) 296 ml 1X ONCE PO Last administered on 06/05/17 14:05; Start 06/05/17 at 10:30; Stop 06/05/17 at 10:31; Status DC Polyethylene Glycol (miraLAX PACKET) 17 gm DAILY PO Last administered on 14:06; Start 06/05/17 at 11:00 Metformin HCl (Glucophage) 850 mg DAILY PO ; Start 06/06/17 at 09:00; Stop 04/13 at 09:00; Status DC Lactobacillus Rhamnosus (Culturelle) 1 cap BID PO Last administered on 09:08; Start 06/05/17 at 21:00 Active Scripts Active Reported Vitamin D3 (Cholecalciferol (Vitamin D3)) 1,000 Unit Tablet 1 Tab PO DAILY Soma (Carisoprodol) 350 Mg Tablet 1 Tab PO BID Quinapril Hcl 10 Mg Tablet 1 Tab PO DAILY Pioglitazone-Metformin 15-850 (Pioglitazone Hcl/Metformin Hcl) 1 Each Tablet 1 Each PO DAILY Levothyroxine Sodium 88 Mcg Tablet 1 Tab PO DAILY Hydrocodone-Apap 7.5-325 (Hydrocodone Bit/Acetaminophen) 1 Each Tablet 1 Tab PO PRN Q6HRS PRN [place] 5-325 Tablet (Acetaminophen/Hydrocodone Bitart) 1 Each Tablet 1 Tab PO PRN Q6HRS PRN Centrum Silver Tablet (Multivits-Min/Fa/Lycopene/Lut) 1 Each Tablet 1 Each PO Atorvastatin Calcium 40 Mg Tablet 1 Tab PO DAILY Aspir 81 (Aspirin) 81 Mg Tablet. 1 Tab PO DAILY Vitals/I & O Vital Sign - Last 24 Hours 06/05/17 06/05/17 06/05/17 06/05/17 15:12 17:49 19:30 20:00 Temp 98.1 97.6 98.1 97.6 Pulse 80 87 Resp 18 18 B/P (MAP) 129/55 (79) 130/70 (90) Pulse Ox 99 92 O2 Delivery Room Air Room Air Room Air Room Air 06/05/17 06/05/17 06/05/17 06/06/17 20:50 21:50 23:00 02:41 Temp 98.0 98.0 Pulse 86 Resp 18 18 18 18 B/P (MAP) 123/64 (83) Pulse Ox 92 94 94 94 O2 Delivery Room Air Room Air Room Air Room Air 06/06/17 06/06/17 06/06/17 06/06/17 03:11 03:16 07:35 07:44 Temp 98.3 97.9 98.3 97.9 Pulse 78 85 Resp 18 18 20 B/P (MAP) 120/65 (83) 135/65 (88) Pulse Ox 97 97 95 O2 Delivery Room Air Room Air Room Air Room Air 06/06/17 06/06/17 06/06/17 09:09 10:39 11:08 Temp 98.2 98.2 Pulse 77 Resp 20 B/P (MAP) 117/67 (84) Pulse Ox 96 O2 Delivery Room Air Room Air Room Air Intake and Output 06/05/17 06/05/17 06/06/17 15:00 23:00 07:00 Intake Total 573 ml 1954 ml Output Total 800 ml 1500 ml Balance -227 ml 454 ml Problem List Abd pain- multifactorial in etiology with biochemical pancreatitis and opioid induced constipation Plan serial LFTS US liver consider colonoscopy if constipation remains symptomatic Full note dictated AUGIE SEO MD Jun 06, 2017 13:02
--- NOTE | 2017-06-06 14:57 | PDOC ---
PROGRESS NOTES Chief Complaint Chief Complaint Abd pain/constipation Dehydration Acute Kidney injury B/l sacral Fx DM II HTN History of Present Illness History of Present Illness Pt seen and examined today at the bedside, daughter and family present during examination, questions and concerns addressed BUN and Creatinine improving, (90 and 1.7) Pt. NPO for IR sacroplasty tomorrow Family reports patient is sleeping poorly Vitals Vitals Vital Signs Date Time Temp Pulse Resp B/P (MAP) Pulse Ox O2 Delivery O2 Flow Rate FiO2 06/06/17 11:08 98.2 77 20 117/67 (84) 96 Room Air 98.2 Physical Exam Physical Exam Eyes: Scleral anicteric General: Alert, Oriented X3, Cooperative, mild distress Heart: Regular rate, Normal S1, Normal S2, Other (no gallops clicks or rubs) Lungs: Clear, Other (No wheezes or crackles) Abdomen: Normal bowel sounds, Soft, No tenderness Extremities: No cyanosis, No edema, Normal pulses Skin: No rashes, No significant lesion Labs LABS Laboratory Tests Test 06/05/17 16:31 06/05/17 21:02 06/06/17 03:45 06/06/17 07:48 Glucose (Fingerstick) 155 mg/dL (70-99) 126 mg/dL (70-99) 130 mg/dL (70-99) White Blood Count 9.5 x10^3/uL (4.0-11.0) Red Blood Count 3.47 x10^6/uL (3.50-5.40) Hemoglobin 10.5 g/dL (12.0-15.5) Hematocrit 31.4 % (36.0-47.0) Mean Corpuscular Volume 91 fL (79-100) Mean Corpuscular Hemoglobin 30 pg (25-35) Mean Corpuscular Hemoglobin Concent 33 g/dL (31-37) Red Cell Distribution Width 13.6 % (11.5-14.5) Platelet Count 253 x10^3/uL (140-400) Neutrophils (%) (Auto) 83 % (31-73) Lymphocytes (%) (Auto) 6 % (24-48) Monocytes (%) (Auto) 9 % (0-9) Eosinophils (%) (Auto) 2 % (0-3) Basophils (%) (Auto) 0 % (0-3) Neutrophils # (Auto) 7.9 x10^3uL (1.8-7.7) Lymphocytes # (Auto) 0.5 x10^3/uL (1.0-4.8) Monocytes # (Auto) 0.9 x10^3/uL (0.0-1.1) Eosinophils # (Auto) 0.2 x10^3/uL (0.0-0.7) Basophils # (Auto) 0.0 x10^3/uL (0.0-0.2) Sodium Level 144 mmol/L (136-145) Potassium Level 3.5 mmol/L (3.5-5.1) Chloride Level 109 mmol/L (98-107) Carbon Dioxide Level 22 mmol/L (21-32) Anion Gap 13 (6-14) Blood Urea Nitrogen 90 mg/dL (7-20) Creatinine 1.7 mg/dL (0.6-1.0) Estimated GFR (Cockcroft-Gault) 29.2 Glucose Level 119 mg/dL (70-99) Calcium Level 8.4 mg/dL (8.5-10.1) Lipase 569 U/L (73-393) Review of Systems Review of Systems Gen: Denies fever, chills, sweats CV: Denies chest pain Resp: Denies shortness of breath Assessment and Plan Assessmemt and Plan Assessment: Abd pain/constipation Dehydration Acute Kidney injury B/l sacral Fx DM II HTN Plan: Trazodone 50mg PO ordered for sleeping Discontinued Barnes cath SNU eval in progress IR sacroplasty in am Continue home medications Continue IVF 75cc/hr Continue Zofran for nausea Recheck labs in am Problems: Comment Review of Relevant I have reviewed the following items mikey (where applicable) has been applied. Labs Laboratory Tests Test 06/05/17 05:15 06/05/17 07:24 06/05/17 10:57 06/05/17 16:31 White Blood Count 9.9 x10^3/uL (4.0-11.0) Red Blood Count 3.60 x10^6/uL (3.50-5.40) Hemoglobin 11.0 g/dL (12.0-15.5) Hematocrit 32.6 % (36.0-47.0) Mean Corpuscular Volume 90 fL (79-100) Mean Corpuscular Hemoglobin 31 pg (25-35) Mean Corpuscular Hemoglobin Concent 34 g/dL (31-37) Red Cell Distribution Width 13.7 % (11.5-14.5) Platelet Count 257 x10^3/uL (140-400) Neutrophils (%) (Auto) 85 % (31-73) Lymphocytes (%) (Auto) 6 % (24-48) Monocytes (%) (Auto) 8 % (0-9) Eosinophils (%) (Auto) 0 % (0-3) Basophils (%) (Auto) 1 % (0-3) Neutrophils # (Auto) 8.4 x10^3uL (1.8-7.7) Lymphocytes # (Auto) 0.6 x10^3/uL (1.0-4.8) Monocytes # (Auto) 0.8 x10^3/uL (0.0-1.1) Eosinophils # (Auto) 0.0 x10^3/uL (0.0-0.7) Basophils # (Auto) 0.0 x10^3/uL (0.0-0.2) Prothrombin Time 13.2 SEC (11.7-14.0) Prothromb Time International Ratio 1.1 (0.8-1.1) Activated Partial Thromboplast Time 22 SEC (24-38) Sodium Level 136 mmol/L (136-145) Potassium Level 3.7 mmol/L (3.5-5.1) Chloride Level 101 mmol/L (98-107) Carbon Dioxide Level 20 mmol/L (21-32) Anion Gap 15 (6-14) Blood Urea Nitrogen 130 mg/dL (7-20) Creatinine 3.4 mg/dL (0.6-1.0) Estimated GFR (Cockcroft-Gault) 13.1 Glucose Level 137 mg/dL (70-99) Calcium Level 8.6 mg/dL (8.5-10.1) Glucose (Fingerstick) 110 mg/dL (70-99) 108 mg/dL (70-99) 155 mg/dL (70-99) Test 06/05/17 21:02 06/06/17 03:45 06/06/17 07:48 Glucose (Fingerstick) 126 mg/dL (70-99) 130 mg/dL (70-99) White Blood Count 9.5 x10^3/uL (4.0-11.0) Red Blood Count 3.47 x10^6/uL (3.50-5.40) Hemoglobin 10.5 g/dL (12.0-15.5) Hematocrit 31.4 % (36.0-47.0) Mean Corpuscular Volume 91 fL (79-100) Mean Corpuscular Hemoglobin 30 pg (25-35) Mean Corpuscular Hemoglobin Concent 33 g/dL (31-37) Red Cell Distribution Width 13.6 % (11.5-14.5) Platelet Count 253 x10^3/uL (140-400) Neutrophils (%) (Auto) 83 % (31-73) Lymphocytes (%) (Auto) 6 % (24-48) Monocytes (%) (Auto) 9 % (0-9) Eosinophils (%) (Auto) 2 % (0-3) Basophils (%) (Auto) 0 % (0-3) Neutrophils # (Auto) 7.9 x10^3uL (1.8-7.7) Lymphocytes # (Auto) 0.5 x10^3/uL (1.0-4.8) Monocytes # (Auto) 0.9 x10^3/uL (0.0-1.1) Eosinophils # (Auto) 0.2 x10^3/uL (0.0-0.7) Basophils # (Auto) 0.0 x10^3/uL (0.0-0.2) Sodium Level 144 mmol/L (136-145) Potassium Level 3.5 mmol/L (3.5-5.1) Chloride Level 109 mmol/L (98-107) Carbon Dioxide Level 22 mmol/L (21-32) Anion Gap 13 (6-14) Blood Urea Nitrogen 90 mg/dL (7-20) Creatinine 1.7 mg/dL (0.6-1.0) Estimated GFR (Cockcroft-Gault) 29.2 Glucose Level 119 mg/dL (70-99) Calcium Level 8.4 mg/dL (8.5-10.1) Lipase 569 U/L (73-393) Laboratory Tests Test 06/05/17 16:31 06/05/17 21:02 06/06/17 03:45 06/06/17 07:48 Glucose (Fingerstick) 155 mg/dL (70-99) 126 mg/dL (70-99) 130 mg/dL (70-99) White Blood Count 9.5 x10^3/uL (4.0-11.0) Red Blood Count 3.47 x10^6/uL (3.50-5.40) Hemoglobin 10.5 g/dL (12.0-15.5) Hematocrit 31.4 % (36.0-47.0) Mean Corpuscular Volume 91 fL (79-100) Mean Corpuscular Hemoglobin 30 pg (25-35) Mean Corpuscular Hemoglobin Concent 33 g/dL (31-37) Red Cell Distribution Width 13.6 % (11.5-14.5) Platelet Count 253 x10^3/uL (140-400) Neutrophils (%) (Auto) 83 % (31-73) Lymphocytes (%) (Auto) 6 % (24-48) Monocytes (%) (Auto) 9 % (0-9) Eosinophils (%) (Auto) 2 % (0-3) Basophils (%) (Auto) 0 % (0-3) Neutrophils # (Auto) 7.9 x10^3uL (1.8-7.7) Lymphocytes # (Auto) 0.5 x10^3/uL (1.0-4.8) Monocytes # (Auto) 0.9 x10^3/uL (0.0-1.1) Eosinophils # (Auto) 0.2 x10^3/uL (0.0-0.7) Basophils # (Auto) 0.0 x10^3/uL (0.0-0.2) Sodium Level 144 mmol/L (136-145) Potassium Level 3.5 mmol/L (3.5-5.1) Chloride Level 109 mmol/L (98-107) Carbon Dioxide Level 22 mmol/L (21-32) Anion Gap 13 (6-14) Blood Urea Nitrogen 90 mg/dL (7-20) Creatinine 1.7 mg/dL (0.6-1.0) Estimated GFR (Cockcroft-Gault) 29.2 Glucose Level 119 mg/dL (70-99) Calcium Level 8.4 mg/dL (8.5-10.1) Lipase 569 U/L (73-393) Medications Current Medications Sodium Chloride 1,000 ml @ 75 mls/hr [id number] IV Last administered on 14:35; Start 06/05/17 at 04:00 Fentanyl Citrate (Fentanyl 2ml Vial) 50 mcg PRN Q2HR PRN IV SEVERE PAIN Last administered on 06/06/17 02:41; Start 06/05/17 at 04:00 Ondansetron HCl (Zofran) 4 mg PRN Q6HRS PRN IV NAUSEA/VOMITING; Start 06/05/17 at 04:00 Ceftriaxone Sodium 1 gm/ Dextrose 50 ml @ 100 mls/hr Q24H IV ; Start 06/05/17 at 04:00; Status UNV Ceftriaxone Sodium (Rocephin) 1 gm Q24H IVP Last administered on 06/05/17 22: 11; Start 06/05/17 at 22:00 Aspirin (Ecotrin) 81 mg DAILY PO Last administered on 06/06/17 09:08; Start 06/05/17 at 11:00 Atorvastatin Calcium (Lipitor) 40 mg QHS PO Last administered on 06/05/17 20: 49; Start 06/05/17 at 21:00 Carisoprodol (Soma) 350 mg BID PO Last administered on 06/06/17 09:08; Start 06/05/17 at 11:00 Vitamin D (Vitamin D3) 1,000 unit DAILY PO Last administered on 06/06/17 09: 08; Start 06/05/17 at 11:00 Acetaminophen/ Hydrocodone Bitart (Lortab 7.5/325) 1 tab PRN Q6HRS PRN PO PAIN Last administered on 06/05/17 20:50; Start 06/05/17 at 10:15 Acetaminophen/ Hydrocodone Bitart (Lortab 5/325) 1 tab PRN Q6HRS PRN PO PAIN Last administered on 06/06/17 09:09; Start 06/05/17 at 10:15 Levothyroxine Sodium (Synthroid) 88 mcg DAILY07 PO Last administered on 06:20; Start 06/06/17 at 07:00 Pioglitazone HCl (Actos) 15 mg DAILY PO ; Start 06/05/17 at 11:30; Stop at 11:30; Status DC Lisinopril (Prinivil) 10 mg DAILY PO ; Start 06/05/17 at 11:00; Stop 06/05/17 at 12:05; Status DC Magnesium Citrate (Citroma) 296 ml 1X ONCE PO Last administered on 06/05/17 14:05; Start 06/05/17 at 10:30; Stop 06/05/17 at 10:31; Status DC Polyethylene Glycol (miraLAX PACKET) 17 gm DAILY PO Last administered on 14:06; Start 06/05/17 at 11:00 Metformin HCl (Glucophage) 850 mg DAILY PO ; Start 06/06/17 at 09:00; Stop 04/13 at 09:00; Status DC Lactobacillus Rhamnosus (Culturelle) 1 cap BID PO Last administered on 09:08; Start 06/05/17 at 21:00 Active Scripts Active Reported Vitamin D3 (Cholecalciferol (Vitamin D3)) 1,000 Unit Tablet 1 Tab PO DAILY Soma (Carisoprodol) 350 Mg Tablet 1 Tab PO BID Quinapril Hcl 10 Mg Tablet 1 Tab PO DAILY Pioglitazone-Metformin 15-850 (Pioglitazone Hcl/Metformin Hcl) 1 Each Tablet 1 Each PO DAILY Levothyroxine Sodium 88 Mcg Tablet 1 Tab PO DAILY Hydrocodone-Apap 7.5-325 (Hydrocodone Bit/Acetaminophen) 1 Each Tablet 1 Tab PO PRN Q6HRS PRN Eagar 5-325 Tablet (Acetaminophen/Hydrocodone Bitart) 1 Each Tablet 1 Tab PO PRN Q6HRS PRN Centrum Silver Tablet (Multivits-Min/Fa/Lycopene/Lut) 1 Each Tablet 1 Each PO Atorvastatin Calcium 40 Mg Tablet 1 Tab PO DAILY Aspir 81 (Aspirin) 81 Mg Tablet. 1 Tab PO DAILY Vitals/I & O Vital Sign - Last 24 Hours 06/05/17 06/05/17 06/05/17 06/05/17 15:12 17:49 19:30 20:00 Temp 98.1 97.6 98.1 97.6 Pulse 80 87 Resp 18 18 B/P (MAP) 129/55 (79) 130/70 (90) Pulse Ox 99 92 O2 Delivery Room Air Room Air Room Air Room Air 06/05/17 06/05/17 06/05/17 06/06/17 20:50 21:50 23:00 02:41 Temp 98.0 98.0 Pulse 86 Resp 18 18 B/P (MAP) 123/64 (83) Pulse Ox 92 94 94 94 O2 Delivery Room Air Room Air Room Air Room Air 06/06/17 06/06/17 06/06/17 06/06/17 03:11 03:16 07:35 07:44 Temp 98.3 97.9 98.3 97.9 Pulse 78 85 Resp 18 18 20 B/P (MAP) 120/65 (83) 135/65 (88) Pulse Ox 97 97 95 O2 Delivery Room Air Room Air Room Air Room Air 06/06/17 06/06/17 06/06/17 09:09 10:39 11:08 Temp 98.2 98.2 Pulse 77 Resp 20 B/P (MAP) 117/67 (84) Pulse Ox 96 O2 Delivery Room Air Room Air Room Air Intake and Output 06/05/17 06/05/17 06/06/17 15:00 23:00 07:00 Intake Total 573 ml 1954 ml Output Total 800 ml 1500 ml Balance -227 ml 454 ml LOCO POLO III DO Jun 06, 2017 14:57
[2017-06-06 15:22] VITALS: BP 127/62
[2017-06-06 19:30] VITALS: BP 128/69
[2017-06-06] MEDS: ATORVASTATIN CALCIUM 40 MG TABLET. PO SCH (21:06)
[2017-06-06] MEDS: CEFPODOXIME PROXETIL 100 MG TABLET. PO SCH (21:06)
[2017-06-06] MEDS: traZODone 50 MG TABLET. PO SCH (21:07)
[2017-06-06] MEDS: PHENYLEPH/MINERAL OIL/PETROLAT RECTAL OINTMENT 28GM TUBE. RC PRN (21:10)
[2017-06-06 23:12] VITALS: BP 116/63
[2017-06-07] MEDS: HYDROcodone/APAP 7.5/325MG 1 TAB TABLET PO PRN ×3 (01:13→21:54)
--- NOTE | 2017-06-07 01:15 | CONS ---
DATE OF CONSULTATION: 06/06/2017 GASTROENTEROLOGY CONSULTATION REASON FOR CONSULTATION: Abdominal pain and constipation. HISTORY OF PRESENT ILLNESS: This is a 77-year-old female with past medical history significant for diabetes, hypothyroidism, hyperlipidemia and carpal tunnel syndrome, who was seen with back pain and a lipase of 700. CT scan revealed possible thickened appendix as well as some gallbladder sludge. She has had increased difficulties moving her bowels since starting on some of her pain medications in the past 2 weeks and notes that since she started to move her bowels, her pain has actually improved. She has had a colonoscopy approximately 10 years ago, which was unrevealing at that time. No bleeding. No change in weight. No additional symptoms are encountered. PAST MEDICAL HISTORY: Diabetes, hypothyroidism, hyperlipidemia and carpal tunnel surgery. ALLERGIES: None. MEDICATIONS: Include levothyroxine, ceftriaxone, Lipitor, MiraLax, vitamin D, Soma, Ecotrin, Lortab, Zofran, and Fentanyl. SOCIAL HISTORY: She is retired. She does not drink or smoke. FAMILY HISTORY: Noncontributory. REVIEW OF SYSTEMS: Per above. PHYSICAL EXAMINATION: GENERAL: This is a well-nourished, well-developed female. VITAL SIGNS: Temperature is 98.2, pulse 67, respirations 20 and blood pressure 117/67. HEENT EXAMINATION: Normocephalic and atraumatic head. Pupils and extraocular not tested. Sclerae anicteric. NECK: Supple. LUNGS: Clear. CARDIOVASCULAR EXAMINATION: Reveals an S1, S2, without S3, S4 or appreciable murmur. ABDOMEN: Exam reveals soft abdomen, normal bowel sounds, without appreciable hepatosplenomegaly, with mild right lower quadrant tenderness to deep palpation. EXTREMITIES: Reveals no cyanosis, clubbing or edema. LABORATORY DATA: Hemoglobin 10.5, hematocrit 31.4, white count 9.5 and platelet count 253,000. Sodium 144, potassium 3.5, chloride 109, BUN is 90, creatinine is 1.7 and glucose is 119. Lipase is 569. V/Q scan was low probability for pulmonary embolus. IMPRESSION AND PLAN: Abdominal pain with elevated lipase. Most likely, it is multifactorial in etiology. Opioid-induced constipation certainly is a differential as well as smoldering pancreatitis. We would recommend that serial enzymes be followed and ultrasound be considered if LFTs remain elevated with lipase. AUGIE SEO MD DR: Lydia JOB#: [id number] / [id number] LUCIA Tan MD
[2017-06-07] MEDS: IV NORMAL SALINE 1000ML BAG 1,000 ML IV SCH (02:47)
[2017-06-07 03:10] VITALS: BP 134/66
[2017-06-07 04:52] LABS: BASO % 0 % (0-3); EOS % 3 % (0-3); HEMATOCRIT 30.9 % (36.0-47.0); HEMOGLOBIN 10.3 g/dL (12.0-15.5); LYMPH # 0.8 x10^3/uL (1.0-4.8); LYMPH % 8 % (24-48); MEAN CORPUSCULAR HEMOGLOBIN 31 pg (25-35); MEAN CORPUSCULAR HGB CONC 33 g/dL (31-37); MEAN CORPUSCULAR VOLUME 92 fL (79-100); MONO % 8 % (0-9); NEUT % 81 % (31-73); PLATELET COUNT 227 x10^3/uL (140-400); RED BLOOD COUNT 3.36 x10^6/uL (3.50-5.40); WHITE BLOOD COUNT 9.9 x10^3/uL (4.0-11.0)
[2017-06-07 07:00] VITALS: BP 129/55
[2017-06-07] MEDS: LEVOTHYROXINE 88 MCG TABLET PO SCH (07:00)
[2017-06-07 07:49] LABS: ALBUMIN 2.6 g/dL (3.4-5.0); ALBUMIN/GLOBULIN RATIO 0.8 (1.0-1.7); CALCIUM 8.1 mg/dL (8.5-10.1); CREATININE 1.1 mg/dL (0.6-1.0); GFR 48.3; POTASSIUM 3.3 mmol/L (3.5-5.1); TOTAL BILIRUBIN 0.3 mg/dL (0.2-1.0); TOTAL PROTEIN 5.9 g/dL (6.4-8.2)
[2017-06-07] MEDS ORDERED: POTASSIUM CHLORIDE 20 MEQ TABLET.ER. PO ONE ×2 (09:00→12:00)
[2017-06-07] MEDS ORDERED: POTASSIUM CL 20MEQ-0.45% NACL 1,000 ML IV ONE (09:00)
--- NOTE | 2017-06-07 09:12 | PDOC ---
PROGRESS NOTES Chief Complaint Chief Complaint Abd pain/constipation, acute ileus, Dehydration, vasomotor nephropathy, POA Acute Kidney injury improving, now with hypernatremia and hypokalemia B/l sacral Fx DM II, HTN History of Present Illness History of Present Illness Pt seen and examined today at the bedside, daughter and family present during examination, questions and concerns addressed BUN and Creatinine improving, 90 and 1.7,on 06/06, 40 and 1.1 today had considered sacroplasty, cancelled, change IV fluid, hypernatremia, hypokalemia, Vitals Vitals Vital Signs Date Time Temp Pulse Resp B/P (MAP) Pulse Ox O2 Delivery O2 Flow Rate FiO2 06/07/17 03:10 97.4 70 18 134/66 (88) 95 Room Air 97.4 Physical Exam Physical Exam Eyes: Scleral anicteric General: Alert, Oriented X3, Cooperative, mild distress Heart: Regular rate, Normal S1, Normal S2, Other (no gallops clicks or rubs) Lungs: Clear, Other (No wheezes or crackles) Abdomen: Normal bowel sounds, Soft, No tenderness Extremities: No cyanosis, No edema, Normal pulses Skin: No rashes, No significant lesion Labs LABS Laboratory Tests Test 06/06/17 11:42 06/06/17 16:47 06/06/17 21:11 06/07/17 04:38 Glucose (Fingerstick) 154 mg/dL (70-99) 104 mg/dL (70-99) 123 mg/dL (70-99) White Blood Count 9.9 x10^3/uL (4.0-11.0) Red Blood Count 3.36 x10^6/uL (3.50-5.40) Hemoglobin 10.3 g/dL (12.0-15.5) Hematocrit 30.9 % (36.0-47.0) Mean Corpuscular Volume 92 fL (79-100) Mean Corpuscular Hemoglobin 31 pg (25-35) Mean Corpuscular Hemoglobin Concent 33 g/dL (31-37) Red Cell Distribution Width 14.0 % (11.5-14.5) Platelet Count 227 x10^3/uL (140-400) Neutrophils (%) (Auto) 81 % (31-73) Lymphocytes (%) (Auto) 8 % (24-48) Monocytes (%) (Auto) 8 % (0-9) Eosinophils (%) (Auto) 3 % (0-3) Basophils (%) (Auto) 0 % (0-3) Neutrophils # (Auto) 8.0 x10^3uL (1.8-7.7) Lymphocytes # (Auto) 0.8 x10^3/uL (1.0-4.8) Monocytes # (Auto) 0.8 x10^3/uL (0.0-1.1) Eosinophils # (Auto) 0.3 x10^3/uL (0.0-0.7) Basophils # (Auto) 0.0 x10^3/uL (0.0-0.2) Test 06/07/17 07:25 06/07/17 08:26 Sodium Level 148 mmol/L (136-145) Potassium Level 3.3 mmol/L (3.5-5.1) Chloride Level 113 mmol/L (98-107) Carbon Dioxide Level 23 mmol/L (21-32) Anion Gap 12 (6-14) Blood Urea Nitrogen 40 mg/dL (7-20) Creatinine 1.1 mg/dL (0.6-1.0) Estimated GFR (Cockcroft-Gault) 48.3 BUN/Creatinine Ratio 36 (6-20) Glucose Level 104 mg/dL (70-99) Calcium Level 8.1 mg/dL (8.5-10.1) Total Bilirubin 0.3 mg/dL (0.2-1.0) Aspartate Amino Transf (AST/SGOT) 26 U/L (15-37) Alanine Aminotransferase (ALT/SGPT) 22 U/L (14-59) Alkaline Phosphatase 138 U/L (46-116) Total Protein 5.9 g/dL (6.4-8.2) Albumin 2.6 g/dL (3.4-5.0) Albumin/Globulin Ratio 0.8 (1.0-1.7) Amylase Level 74 U/L (25-115) Glucose (Fingerstick) 91 mg/dL (70-99) Review of Systems Review of Systems dry mouth no n.v.d Assessment and Plan Assessmemt and Plan change IV fluid OOB, ambulate, PT and OT plan SNU placement soon Problems: Comment Review of Relevant I have reviewed the following items mikey (where applicable) has been applied. Labs Laboratory Tests Test 06/05/17 10:57 06/05/17 16:31 06/05/17 21:02 06/06/17 03:45 Glucose (Fingerstick) 108 mg/dL (70-99) 155 mg/dL (70-99) 126 mg/dL (70-99) White Blood Count 9.5 x10^3/uL (4.0-11.0) Red Blood Count 3.47 x10^6/uL (3.50-5.40) Hemoglobin 10.5 g/dL (12.0-15.5) Hematocrit 31.4 % (36.0-47.0) Mean Corpuscular Volume 91 fL (79-100) Mean Corpuscular Hemoglobin 30 pg (25-35) Mean Corpuscular Hemoglobin Concent 33 g/dL (31-37) Red Cell Distribution Width 13.6 % (11.5-14.5) Platelet Count 253 x10^3/uL (140-400) Neutrophils (%) (Auto) 83 % (31-73) Lymphocytes (%) (Auto) 6 % (24-48) Monocytes (%) (Auto) 9 % (0-9) Eosinophils (%) (Auto) 2 % (0-3) Basophils (%) (Auto) 0 % (0-3) Neutrophils # (Auto) 7.9 x10^3uL (1.8-7.7) Lymphocytes # (Auto) 0.5 x10^3/uL (1.0-4.8) Monocytes # (Auto) 0.9 x10^3/uL (0.0-1.1) Eosinophils # (Auto) 0.2 x10^3/uL (0.0-0.7) Basophils # (Auto) 0.0 x10^3/uL (0.0-0.2) Sodium Level 144 mmol/L (136-145) Potassium Level 3.5 mmol/L (3.5-5.1) Chloride Level 109 mmol/L (98-107) Carbon Dioxide Level 22 mmol/L (21-32) Anion Gap 13 (6-14) Blood Urea Nitrogen 90 mg/dL (7-20) Creatinine 1.7 mg/dL (0.6-1.0) Estimated GFR (Cockcroft-Gault) 29.2 Glucose Level 119 mg/dL (70-99) Calcium Level 8.4 mg/dL (8.5-10.1) Lipase 569 U/L (73-393) Test 06/06/17 07:48 06/06/17 11:42 06/06/17 16:47 06/06/17 21:11 Glucose (Fingerstick) 130 mg/dL (70-99) 154 mg/dL (70-99) 104 mg/dL (70-99) 123 mg/dL (70-99) Test 06/07/17 04:38 06/07/17 07:25 06/07/17 08:26 White Blood Count 9.9 x10^3/uL (4.0-11.0) Red Blood Count 3.36 x10^6/uL (3.50-5.40) Hemoglobin 10.3 g/dL (12.0-15.5) Hematocrit 30.9 % (36.0-47.0) Mean Corpuscular Volume 92 fL (79-100) Mean Corpuscular Hemoglobin 31 pg (25-35) Mean Corpuscular Hemoglobin Concent 33 g/dL (31-37) Red Cell Distribution Width 14.0 % (11.5-14.5) Platelet Count 227 x10^3/uL (140-400) Neutrophils (%) (Auto) 81 % (31-73) Lymphocytes (%) (Auto) 8 % (24-48) Monocytes (%) (Auto) 8 % (0-9) Eosinophils (%) (Auto) 3 % (0-3) Basophils (%) (Auto) 0 % (0-3) Neutrophils # (Auto) 8.0 x10^3uL (1.8-7.7) Lymphocytes # (Auto) 0.8 x10^3/uL (1.0-4.8) Monocytes # (Auto) 0.8 x10^3/uL (0.0-1.1) Eosinophils # (Auto) 0.3 x10^3/uL (0.0-0.7) Basophils # (Auto) 0.0 x10^3/uL (0.0-0.2) Sodium Level 148 mmol/L (136-145) Potassium Level 3.3 mmol/L (3.5-5.1) Chloride Level 113 mmol/L (98-107) Carbon Dioxide Level 23 mmol/L (21-32) Anion Gap 12 (6-14) Blood Urea Nitrogen 40 mg/dL (7-20) Creatinine 1.1 mg/dL (0.6-1.0) Estimated GFR (Cockcroft-Gault) 48.3 BUN/Creatinine Ratio 36 (6-20) Glucose Level 104 mg/dL (70-99) Calcium Level 8.1 mg/dL (8.5-10.1) Total Bilirubin 0.3 mg/dL (0.2-1.0) Aspartate Amino Transf (AST/SGOT) 26 U/L (15-37) Alanine Aminotransferase (ALT/SGPT) 22 U/L (14-59) Alkaline Phosphatase 138 U/L (46-116) Total Protein 5.9 g/dL (6.4-8.2) Albumin 2.6 g/dL (3.4-5.0) Albumin/Globulin Ratio 0.8 (1.0-1.7) Amylase Level 74 U/L (25-115) Glucose (Fingerstick) 91 mg/dL (70-99) Laboratory Tests Test 06/06/17 11:42 06/06/17 16:47 06/06/17 21:11 06/07/17 04:38 Glucose (Fingerstick) 154 mg/dL (70-99) 104 mg/dL (70-99) 123 mg/dL (70-99) White Blood Count 9.9 x10^3/uL (4.0-11.0) Red Blood Count 3.36 x10^6/uL (3.50-5.40) Hemoglobin 10.3 g/dL (12.0-15.5) Hematocrit 30.9 % (36.0-47.0) Mean Corpuscular Volume 92 fL (79-100) Mean Corpuscular Hemoglobin 31 pg (25-35) Mean Corpuscular Hemoglobin Concent 33 g/dL (31-37) Red Cell Distribution Width 14.0 % (11.5-14.5) Platelet Count 227 x10^3/uL (140-400) Neutrophils (%) (Auto) 81 % (31-73) Lymphocytes (%) (Auto) 8 % (24-48) Monocytes (%) (Auto) 8 % (0-9) Eosinophils (%) (Auto) 3 % (0-3) Basophils (%) (Auto) 0 % (0-3) Neutrophils # (Auto) 8.0 x10^3uL (1.8-7.7) Lymphocytes # (Auto) 0.8 x10^3/uL (1.0-4.8) Monocytes # (Auto) 0.8 x10^3/uL (0.0-1.1) Eosinophils # (Auto) 0.3 x10^3/uL (0.0-0.7) Basophils # (Auto) 0.0 x10^3/uL (0.0-0.2) Test 06/07/17 07:25 06/07/17 08:26 Sodium Level 148 mmol/L (136-145) Potassium Level 3.3 mmol/L (3.5-5.1) Chloride Level 113 mmol/L (98-107) Carbon Dioxide Level 23 mmol/L (21-32) Anion Gap 12 (6-14) Blood Urea Nitrogen 40 mg/dL (7-20) Creatinine 1.1 mg/dL (0.6-1.0) Estimated GFR (Cockcroft-Gault) 48.3 BUN/Creatinine Ratio 36 (6-20) Glucose Level 104 mg/dL (70-99) Calcium Level 8.1 mg/dL (8.5-10.1) Total Bilirubin 0.3 mg/dL (0.2-1.0) Aspartate Amino Transf (AST/SGOT) 26 U/L (15-37) Alanine Aminotransferase (ALT/SGPT) 22 U/L (14-59) Alkaline Phosphatase 138 U/L (46-116) Total Protein 5.9 g/dL (6.4-8.2) Albumin 2.6 g/dL (3.4-5.0) Albumin/Globulin Ratio 0.8 (1.0-1.7) Amylase Level 74 U/L (25-115) Glucose (Fingerstick) 91 mg/dL (70-99) Medications Current Medications Sodium Chloride 1,000 ml @ 75 mls/hr [id number] IV Last administered on t 02:47; Start 06/05/17 at 04:00; Stop 06/07/17 at 08:59; Status DC Fentanyl Citrate (Fentanyl 2ml Vial) 50 mcg PRN Q2HR PRN IV SEVERE PAIN Last administered on 06/06/17 02:41; Start 06/05/17 at 04:00 Ondansetron HCl (Zofran) 4 mg PRN Q6HRS PRN IV NAUSEA/VOMITING; Start 06/05/17 at 04:00 Ceftriaxone Sodium 1 gm/ Dextrose 50 ml @ 100 mls/hr Q24H IV ; Start 06/05/17 at 04:00; Status UNV Ceftriaxone Sodium (Rocephin) 1 gm Q24H IVP Last administered on 06/05/17 22: 11; Start 06/05/17 at 22:00; Stop 06/06/17 at 14:45; Status DC Aspirin (Ecotrin) 81 mg DAILY PO Last administered on 06/06/17 09:08; Start 06/05/17 at 11:00 Atorvastatin Calcium (Lipitor) 40 mg QHS PO Last administered on 06/06/17 21: 06; Start 06/05/17 at 21:00 Carisoprodol (Soma) 350 mg BID PO Last administered on 06/06/17 21:06; Start 06/05/17 at 11:00 Vitamin D (Vitamin D3) 1,000 unit DAILY PO Last administered on 06/06/17 09: 08; Start 06/05/17 at 11:00 Acetaminophen/ Hydrocodone Bitart (Lortab 7.5/325) 1 tab PRN Q6HRS PRN PO PAIN Last administered on 06/07/17 01:13; Start 06/05/17 at 10:15 Acetaminophen/ Hydrocodone Bitart (Lortab 5/325) 1 tab PRN Q6HRS PRN PO PAIN Last administered on 06/06/17 14:53; Start 06/05/17 at 10:15 Levothyroxine Sodium (Synthroid) 88 mcg DAILY07 PO Last administered on 06:20; Start 06/06/17 at 07:00 Pioglitazone HCl (Actos) 15 mg DAILY PO ; Start 06/05/17 at 11:30; Stop at 11:30; Status DC Lisinopril (Prinivil) 10 mg DAILY PO ; Start 06/05/17 at 11:00; Stop 06/05/17 at 12:05; Status DC Magnesium Citrate (Citroma) 296 ml 1X ONCE PO Last administered on 06/05/17 14:05; Start 06/05/17 at 10:30; Stop 06/05/17 at 10:31; Status DC Polyethylene Glycol (miraLAX PACKET) 17 gm DAILY PO Last administered on 14:06; Start 06/05/17 at 11:00 Metformin HCl (Glucophage) 850 mg DAILY PO ; Start 06/06/17 at 09:00; Stop 04/13 at 09:00; Status DC Lactobacillus Rhamnosus (Culturelle) 1 cap BID PO Last administered on 21:07; Start 06/05/17 at 21:00 Trazodone HCl (Desyrel) 50 mg QHS PO Last administered on 06/06/17 21:07; Start 06/06/17 at 21:00 Cefpodoxime Proxetil (Vantin) 100 mg BID PO Last administered on 06/06/17 21: 06; Start 06/06/17 at 21:00; Stop 06/13/17 at 09:01 Phenyleph/Shark Oil/Min Oil/Petrol (Preparation H) 1 allen TID PRN PRN RC RECTAL PAIN Last administered on 06/06/17 21:10; Start 06/06/17 at 18:30 Potassium Chloride/Sodium Chloride 1,000 ml @ 75 mls/hr 1X ONCE IV ; Start at 09:00; Stop 06/07/17 at 22:19 Potassium Chloride (Klor-Con) 40 meq 1X ONCE PO ; Start 06/07/17 at 09:00; Stop 06/07/17 at 09:04; Status DC Saliva Substitute (Biotene Moisturizing Mouth) 2 spray PRN Q15MIN PRN PO DRY MOUTH; Start 06/07/17 at 09:15; Status UNV Active Scripts Active Reported Vitamin D3 (Cholecalciferol (Vitamin D3)) 1,000 Unit Tablet 1 Tab PO DAILY Soma (Carisoprodol) 350 Mg Tablet 1 Tab PO BID Quinapril Hcl 10 Mg Tablet 1 Tab PO DAILY Pioglitazone-Metformin 15-850 (Pioglitazone Hcl/Metformin Hcl) 1 Each Tablet 1 Each PO DAILY Levothyroxine Sodium 88 Mcg Tablet 1 Tab PO DAILY Hydrocodone-Apap 7.5-325 (Hydrocodone Bit/Acetaminophen) 1 Each Tablet 1 Tab PO PRN Q6HRS PRN [place] 5-325 Tablet (Acetaminophen/Hydrocodone Bitart) 1 Each Tablet 1 Tab PO PRN Q6HRS PRN Centrum Silver Tablet (Multivits-Min/Fa/Lycopene/Lut) 1 Each Tablet 1 Each PO Atorvastatin Calcium 40 Mg Tablet 1 Tab PO DAILY Aspir 81 (Aspirin) 81 Mg Tablet. 1 Tab PO DAILY Vitals/I & O Vital Sign - Last 24 Hours 06/06/17 06/06/17 06/06/17 06/06/17 11:08 14:53 15:22 16:00 Temp 98.2 98.4 98.2 98.4 Pulse 77 73 Resp 20 18 B/P (MAP) 117/67 (84) 127/62 (83) Pulse Ox 96 95 O2 Delivery Room Air Room Air Room Air Room Air 06/06/17 06/06/17 06/06/17 06/07/17 19:30 20:00 23:12 01:13 Temp 97.9 98.8 97.9 98.8 Pulse 84 115 Resp 18 18 18 B/P (MAP) 128/69 (88) 116/63 (80) Pulse Ox 97 95 95 O2 Delivery Room Air Room Air Room Air Room Air 06/07/17 06/07/17 02:13 03:10 Temp 97.4 97.4 Pulse 70 Resp 18 18 B/P (MAP) 134/66 (88) Pulse Ox 95 O2 Delivery Room Air Room Air Intake and Output 06/06/17 06/06/17 06/07/17 15:00 23:00 07:00 Intake Total 877 ml 420 ml 1106 ml Output Total 750 ml Balance 127 ml 420 ml 1106 ml JEFF ADAME MD Jun 07, 2017 09:12
[2017-06-07] MEDS: CARISOPRODOL 350 MG TABLET PO SCH ×2 (09:17→21:53)
[2017-06-07] MEDS: ASPIRIN ENTERIC COATED 81 MG TABLET.DR. PO SCH (09:17)
[2017-06-07] MEDS: CEFPODOXIME PROXETIL 100 MG TABLET. PO SCH ×2 (09:17→21:54)
[2017-06-07] MEDS: CHOLECALCIFEROL (VITAMIN D3) 1,000 UNIT TABLET PO SCH (09:17)
[2017-06-07] MEDS: LACTOBACILLUS RHAMNOSUS GG 1 CAPSULE. PO SCH ×2 (09:17→21:53)
[2017-06-07] MEDS: POLYETHYLENE GLYCOL 3350 17 GM PACKET. PO SCH (09:18)
--- NOTE | 2017-06-07 10:30 | PDOC ---
Subjective: Subjective: Back pain. Has been stooling, still might feel a little constipated. No abd pain or vomiting. Objective: Objective: 7 stools charted. MRIs ordered. Vital Signs: Vital Signs Date Time Temp Pulse Resp B/P (MAP) Pulse Ox O2 Delivery O2 Flow Rate FiO2 06/07/17 10:20 16 Room Air 06/07/17 07:00 97.5 71 129/55 (79) 97 97.5 Labs: Laboratory Tests Test 06/06/17 11:42 06/06/17 16:47 06/06/17 21:11 06/07/17 04:38 Glucose (Fingerstick) 154 mg/dL 104 mg/dL 123 mg/dL White Blood Count 9.9 x10^3/uL Red Blood Count 3.36 x10^6/uL Hemoglobin 10.3 g/dL Hematocrit 30.9 % Mean Corpuscular Volume 92 fL Mean Corpuscular Hemoglobin 31 pg Mean Corpuscular Hemoglobin Concent 33 g/dL Red Cell Distribution Width 14.0 % Platelet Count 227 x10^3/uL Neutrophils (%) (Auto) 81 % Lymphocytes (%) (Auto) 8 % Monocytes (%) (Auto) 8 % Eosinophils (%) (Auto) 3 % Basophils (%) (Auto) 0 % Neutrophils # (Auto) 8.0 x10^3uL Lymphocytes # (Auto) 0.8 x10^3/uL Monocytes # (Auto) 0.8 x10^3/uL Eosinophils # (Auto) 0.3 x10^3/uL Basophils # (Auto) 0.0 x10^3/uL Test 06/07/17 07:25 06/07/17 08:26 Sodium Level 148 mmol/L Potassium Level 3.3 mmol/L Chloride Level 113 mmol/L Carbon Dioxide Level 23 mmol/L Anion Gap 12 Blood Urea Nitrogen 40 mg/dL Creatinine 1.1 mg/dL Estimated GFR (Cockcroft-Gault) 48.3 BUN/Creatinine Ratio 36 Glucose Level 104 mg/dL Calcium Level 8.1 mg/dL Total Bilirubin 0.3 mg/dL Aspartate Amino Transf (AST/SGOT) 26 U/L Alanine Aminotransferase (ALT/SGPT) 22 U/L Alkaline Phosphatase 138 U/L Total Protein 5.9 g/dL Albumin 2.6 g/dL Albumin/Globulin Ratio 0.8 Amylase Level 74 U/L Glucose (Fingerstick) 91 mg/dL PE: GEN: NAD LUNGS: clear HEART: RRR ABD: NABS, S/ND/NT NEURO/PSYCH: A & O 3 A/P: Abd pain, vomiting - resolved Constipation - resolved Elevated lipase Back pain - bilateral sacral fractures, L5 endplate fracture, IR following CHRISTIN - improved -- Improved GI-mahoney, will review w/ Dr. Lucas. VAN OROSCO Jun 07, 2017 10:30
[2017-06-07 11:00] VITALS: BP 106/50
--- NOTE | 2017-06-07 11:34 | PDOC ---
Renal-Progress Notes Subjective Notes Notes NONE History of Present Illness Hx of present illness NO CHANGE Vitals Vitals Vital Signs Date Time Temp Pulse Resp B/P (MAP) Pulse Ox O2 Delivery O2 Flow Rate FiO2 06/07/17 10:20 16 Room Air 06/07/17 07:00 97.5 71 129/55 (79) 97 97.5 Weight Weight [ ] I.O. Intake and Output Intake and Output 06/07/17 07:00 Intake Total 2403 ml Output Total 750 ml Balance 1653 ml Intake Oral 660 ml IV Total 1743 ml Output Urine Total 750 ml # Voids 5 # Bowel Movements 7 Labs Labs Laboratory Tests Test 06/06/17 11:42 06/06/17 16:47 06/06/17 21:11 06/07/17 04:38 Glucose (Fingerstick) 154 mg/dL (70-99) 104 mg/dL (70-99) 123 mg/dL (70-99) White Blood Count 9.9 x10^3/uL (4.0-11.0) Red Blood Count 3.36 x10^6/uL (3.50-5.40) Hemoglobin 10.3 g/dL (12.0-15.5) Hematocrit 30.9 % (36.0-47.0) Mean Corpuscular Volume 92 fL (79-100) Mean Corpuscular Hemoglobin 31 pg (25-35) Mean Corpuscular Hemoglobin Concent 33 g/dL (31-37) Red Cell Distribution Width 14.0 % (11.5-14.5) Platelet Count 227 x10^3/uL (140-400) Neutrophils (%) (Auto) 81 % (31-73) Lymphocytes (%) (Auto) 8 % (24-48) Monocytes (%) (Auto) 8 % (0-9) Eosinophils (%) (Auto) 3 % (0-3) Basophils (%) (Auto) 0 % (0-3) Neutrophils # (Auto) 8.0 x10^3uL (1.8-7.7) Lymphocytes # (Auto) 0.8 x10^3/uL (1.0-4.8) Monocytes # (Auto) 0.8 x10^3/uL (0.0-1.1) Eosinophils # (Auto) 0.3 x10^3/uL (0.0-0.7) Basophils # (Auto) 0.0 x10^3/uL (0.0-0.2) Test 06/07/17 07:25 06/07/17 08:26 Sodium Level 148 mmol/L (136-145) Potassium Level 3.3 mmol/L (3.5-5.1) Chloride Level 113 mmol/L (98-107) Carbon Dioxide Level 23 mmol/L (21-32) Anion Gap 12 (6-14) Blood Urea Nitrogen 40 mg/dL (7-20) Creatinine 1.1 mg/dL (0.6-1.0) Estimated GFR (Cockcroft-Gault) 48.3 BUN/Creatinine Ratio 36 (6-20) Glucose Level 104 mg/dL (70-99) Calcium Level 8.1 mg/dL (8.5-10.1) Total Bilirubin 0.3 mg/dL (0.2-1.0) Aspartate Amino Transf (AST/SGOT) 26 U/L (15-37) Alanine Aminotransferase (ALT/SGPT) 22 U/L (14-59) Alkaline Phosphatase 138 U/L (46-116) Total Protein 5.9 g/dL (6.4-8.2) Albumin 2.6 g/dL (3.4-5.0) Albumin/Globulin Ratio 0.8 (1.0-1.7) Amylase Level 74 U/L (25-115) Glucose (Fingerstick) 91 mg/dL (70-99) Review of Systems Constitutional: yes: weakness, alert, oriented Ears/Nose/Throat: Yes: no symptom reported Eyes: Yes: no symptom reported Pulmonary: Yes no symptom reported Cardiovascular: Yes no symptom reported Gastrointestional: Yes: no symptom reported Genitourinary: Yes: no symptom reported Musculoskeletal: Yes: joint pain Skin: Yes no symptom reported Psychiatric/Neurological: Yes: no symptom reported Endocrine: Yes: no symptom reported Physical Exam General Appearance: no apparent distress Skin: warm Respiratory: bilateral CTA Heart: S1S2 Abdomen: soft, bowel sounds present Genitourinary: bladder flat Extremities: pulses present, no edema Assessment Assessment IMP DEHYDRATION CHRISTIN-BETTER WITH CR DOWN TO 1.1 L5 PLATE FX BILATERAL SACRAL FX DM II HTN LOW K PLAN ENC PO DECREASE IVF RATE REPLACE K LABS IN AM CHRIS GILBERT MD Jun 07, 2017 11:34
--- NOTE | 2017-06-07 13:56 | PDOC ---
PROGRESS NOTES Subjective Subjective Feeling better Objective Objective Vital Signs Date Time Temp Pulse Resp B/P (MAP) Pulse Ox O2 Delivery O2 Flow Rate FiO2 06/07/17 11:00 97.7 72 18 106/50 (68) 96 Room Air 97.7 Intake and Output 06/07/17 07:00 Intake Total 2403 ml Output Total 750 ml Balance 1653 ml Intake Oral 660 ml IV Total 1743 ml Output Urine Total 750 ml # Voids 5 # Bowel Movements 7 Physical Exam Abdomen: Normal bowel sounds, Soft, No tenderness Heart: Regular rate, Normal S1, Normal S2, Other (no gallops clicks or rubs) Extremities: No cyanosis, No edema, Normal pulses General: Alert, Oriented X3, Cooperative, mild distress HEENT: Atraumatic, EOMI Lungs: Clear to auscultation, Normal air movement MUSCULOSKELETAL: No joint tenderness, No deformity, No swelling Neuro: Normal speech Psych/Mental Status: Mental status NL, Mood NL Skin: No rashes, No significant lesion Assessment Assessment 1. elevated d dimer - LE venous duplex scan did not show any DVT and VQ scan low probability for PE 2. CAD, moderate - angina free. continue medical therapy 3. sacral and L4 fractures - per Ortho 4. ARF - likely secondary to dehydration - renal following. Comment Review of Relevant I have reviewed the following items mikey (where applicable) has been applied. Labs Laboratory Tests Test 06/06/17 16:47 06/06/17 21:11 06/07/17 04:38 06/07/17 07:25 Glucose (Fingerstick) 104 mg/dL (70-99) 123 mg/dL (70-99) White Blood Count 9.9 x10^3/uL (4.0-11.0) Red Blood Count 3.36 x10^6/uL (3.50-5.40) Hemoglobin 10.3 g/dL (12.0-15.5) Hematocrit 30.9 % (36.0-47.0) Mean Corpuscular Volume 92 fL (79-100) Mean Corpuscular Hemoglobin 31 pg (25-35) Mean Corpuscular Hemoglobin Concent 33 g/dL (31-37) Red Cell Distribution Width 14.0 % (11.5-14.5) Platelet Count 227 x10^3/uL (140-400) Neutrophils (%) (Auto) 81 % (31-73) Lymphocytes (%) (Auto) 8 % (24-48) Monocytes (%) (Auto) 8 % (0-9) Eosinophils (%) (Auto) 3 % (0-3) Basophils (%) (Auto) 0 % (0-3) Neutrophils # (Auto) 8.0 x10^3uL (1.8-7.7) Lymphocytes # (Auto) 0.8 x10^3/uL (1.0-4.8) Monocytes # (Auto) 0.8 x10^3/uL (0.0-1.1) Eosinophils # (Auto) 0.3 x10^3/uL (0.0-0.7) Basophils # (Auto) 0.0 x10^3/uL (0.0-0.2) Hemoglobin A1c 5.8 % (4.8-5.6) Sodium Level 148 mmol/L (136-145) Potassium Level 3.3 mmol/L (3.5-5.1) Chloride Level 113 mmol/L (98-107) Carbon Dioxide Level 23 mmol/L (21-32) Anion Gap 12 (6-14) Blood Urea Nitrogen 40 mg/dL (7-20) Creatinine 1.1 mg/dL (0.6-1.0) Estimated GFR (Cockcroft-Gault) 48.3 BUN/Creatinine Ratio 36 (6-20) Glucose Level 104 mg/dL (70-99) Calcium Level 8.1 mg/dL (8.5-10.1) Total Bilirubin 0.3 mg/dL (0.2-1.0) Aspartate Amino Transf (AST/SGOT) 26 U/L (15-37) Alanine Aminotransferase (ALT/SGPT) 22 U/L (14-59) Alkaline Phosphatase 138 U/L (46-116) Total Protein 5.9 g/dL (6.4-8.2) Albumin 2.6 g/dL (3.4-5.0) Albumin/Globulin Ratio 0.8 (1.0-1.7) Amylase Level 74 U/L (25-115) Test 06/07/17 08:26 06/07/17 11:26 Glucose (Fingerstick) 91 mg/dL (70-99) 169 mg/dL (70-99) Medications Current Medications Cefpodoxime Proxetil (Vantin) 100 mg BID PO Last administered on 06/07/17 09: 17; Start 06/06/17 at 21:00; Stop 06/13/17 at 09:01 Phenyleph/Shark Oil/Min Oil/Petrol (Preparation H) 1 allen TID PRN PRN RC RECTAL PAIN Last administered on 06/06/17 21:10; Start 06/06/17 at 18:30 Potassium Chloride/Sodium Chloride 1,000 ml @ 75 mls/hr 1X ONCE IV Last administered on 06/07/17 09:25; Start 06/07/17 at 09:00; Stop 06/07/17 at 22 :19 Potassium Chloride (Klor-Con) 20 meq 1X ONCE PO ; Start 06/07/17 at 12:00; Stop 06/07/17 at 12:01; Status DC Potassium Chloride (Klor-Con) 40 meq 1X ONCE PO Last administered on 09:17; Start 06/07/17 at 09:00; Stop 06/07/17 at 09:04; Status DC Saliva Substitute (Biotene Moisturizing Mouth) 2 spray PRN Q15MIN PRN PO DRY MOUTH; Start 06/07/17 at 09:15 Trazodone HCl (Desyrel) 50 mg QHS PO Last administered on 06/06/17 21:07; Start 06/06/17 at 21:00 Vitals/I & O Vital Sign - Last 24 Hours 06/06/17 06/06/17 06/06/17 06/06/17 14:53 15:22 16:00 19:30 Temp 98.4 97.9 98.4 97.9 Pulse 73 84 Resp 18 18 B/P (MAP) 127/62 (83) 128/69 (88) Pulse Ox 95 97 O2 Delivery Room Air Room Air Room Air Room Air 06/06/17 06/06/17 06/07/17 06/07/17 20:00 23:12 01:13 03:10 Temp 98.8 97.4 98.8 97.4 Pulse 115 70 Resp 18 18 18 B/P (MAP) 116/63 (80) 134/66 (88) Pulse Ox 95 95 95 O2 Delivery Room Air Room Air Room Air Room Air 06/07/17 06/07/17 06/07/1711/17 07:00 08:00 09:18 10:20 Temp 97.5 97.5 Pulse 71 Resp 16 16 16 B/P (MAP) 129/55 (79) Pulse Ox 97 O2 Delivery Room Air Room Air Room Air Room Air 06/07/17 11:00 Temp 97.7 97.7 Pulse 72 Resp 18 B/P (MAP) 106/50 (68) Pulse Ox 96 O2 Delivery Room Air Intake and Output 06/06/17 06/06/17 06/07/17 15:00 23:00 07:00 Intake Total 877 ml 420 ml 1106 ml Output Total 750 ml Balance 127 ml 420 ml 1106 ml MARK ESPOSITO MD Jun 07, 2017 13:56
[2017-06-07] MEDS: SALIVA STIMULANT AGENT 44ML SPRAY BOTTLE. PO PRN (14:21)
--- NOTE | 2017-06-07 14:25 | RAD ---
MRI Lumbar Spine without contrast History: Lumbosacral fracture, degenerative disc disease Technique: Multiplanar, multi sequential noncontrast MR imaging was performed of the lumbar spine. Contrast: None Comparison: None Findings: There is sacral fracture centrally at S2 with associated edema signified by STIR hyperintense and T1 hypointense signal, edema involving the bilateral sacral ala. Lumbar vertebral body stature is preserved. There is grade 1 anterior spondylolisthesis L4-5. Intervertebral disc spaces are overall preserved, mild disc desiccation L3-4 to L5-S1. There are anterior annular tears L1-L2 through L4-5, posterior annular tears L4-5 and L5-S1. Visualized gallbladder appears distended, internal heterogeneous signal on T1 sequence. L1-L2: Neural foramina and spinal canal are adequate. L2-L3: Neural foramina and spinal canal are adequate. There is minimal facet degenerative change and buckling of the ligamentum flavum. L3-L4: There is minimal buckling of the ligamentum flavum and facet degenerative change greater on the right. Spinal canal and neural foramina are adequate. L4-L5: There is mild buckling of the ligamentum flavum and mild to moderate facet degenerative change. There is shallow posterior central protrusion/small extrusion extending slightly below the intervertebral disc space centrally. There is very mild narrowing of the far right lateral recess. There is mild neural foramina compromise bilaterally. L5-S1: Spinal canal and right neural foramen are adequate, minimal posterior narrowing of the left neural foramen by facet. There is moderate facet hypertrophic change greater on the left. Impression: 1. There is recent sacral fracture. 2. There is no significant lumbar spinal stenosis, very mild narrowing of the far right lateral recess L4-5. There is very mild grade 1 anterior spondylolisthesis at L4-5 due to facet degenerative change. 3. There is mild neural foramina compromise bilaterally at L4-5. 4. Visualized gallbladder appears distended with internal heterogeneous signal which may be due to sludge or stones. Electronically signed by: Glenn Melendez MD (06/07/2017 2:21 PM) [id number]
[2017-06-07] MEDS ORDERED: BISACODYL 10 MG SUPP.RECT. PR ONE (14:30)
[2017-06-07] MEDS ORDERED: SODIUM PHOSPHATES 19/7GM 133 ML ENEMA. PR ONE (14:30)
--- NOTE | 2017-06-07 14:38 | RAD ---
MR elbow sacrum HISTORY: Sacral fracture. Constipation for 8 weeks. TECHNIQUE: Standard noncontrast images are obtained. FINDINGS: Fracture of the sacrum involving the upper S2 body segment. There is mild posterior angulation at the fracture. The fracture extends laterally into the sacral ala bilaterally with both horizontal and vertical morphology. There is some edema and fluid type signal in the presacral soft tissues likely hemorrhage. The sacroiliac joints are intact. Mild spondylosis of the visualized lower lumbar levels with disc bulging. This is fully evaluated on dedicated MR lumbar spine study of same day. IMPRESSION: Sacral fracture involving the bilateral ala and S2 body segment with slight angulation. This could be posttraumatic or related to repetitive stress injury depending on clinical correlation. Presacral soft tissue hemorrhage. Electronically signed by: Chip Chaves MD (06/07/2017 2:35 PM) [email or web address]
[2017-06-07 15:00] VITALS: BP 111/54
--- NOTE | 2017-06-07 15:32 | RAD ---
APPROVED REPORT Lower Extremity Venous Study for DVT Patient Location: IN-PATIENT Findings Grayscale images of the bilateral lower extremity deep veins were obtained to rule out thrombus. The right and left common femoral, femoral, popliteal veins are visualized and appear to be compressi ble with normal color Doppler spectral waveforms. The below-knee veins are not well visualized but ap pear to demonstrate spontaneous flow. Critical Notification Critical Value: No <Conclusion> No evidence of DVT in the bilateral lower extremities.
[2017-06-07] MEDS: PHENYLEPH/MINERAL OIL/PETROLAT RECTAL OINTMENT 28GM TUBE. RC PRN ×2 (16:19→21:54)
[2017-06-07 19:00] VITALS: BP 156/59
[2017-06-07] MEDS: traZODone 50 MG TABLET. PO SCH (21:00)
[2017-06-07] MEDS: ATORVASTATIN CALCIUM 40 MG TABLET. PO SCH (21:53)
[2017-06-07 23:00] VITALS: BP 130/54
[2017-06-08] VITALS (26 sets, daily range): BP systolic 117–159; BP diastolic 51–87
[2017-06-08 04:39] LABS: BASO # 0.1 x10^3/uL (0.0-0.2); BASO % 1 % (0-3); EOS % 5 % (0-3); HEMATOCRIT 27.1 % (36.0-47.0); HEMOGLOBIN 9.1 g/dL (12.0-15.5); LYMPH % 14 % (24-48); MEAN CORPUSCULAR HEMOGLOBIN 31 pg (25-35); MEAN CORPUSCULAR HGB CONC 34 g/dL (31-37); MEAN CORPUSCULAR VOLUME 92 fL (79-100); MONO % 9 % (0-9); NEUT % 72 % (31-73); PLATELET COUNT 190 x10^3/uL (140-400); RED BLOOD COUNT 2.96 x10^6/uL (3.50-5.40); RED CELL DISTRIBUTION WIDTH 14.3 % (11.5-14.5); WHITE BLOOD COUNT 7.6 x10^3/uL (4.0-11.0)
[2017-06-08 05:20] LABS: CALCIUM 7.9 mg/dL (8.5-10.1); CREATININE 0.9 mg/dL (0.6-1.0); GFR 60.9; MAGNESIUM 1.4 mg/dL (1.8-2.4)
[2017-06-08] MEDS: LEVOTHYROXINE 88 MCG TABLET PO SCH (06:50)
--- NOTE | 2017-06-08 07:27 | RAD ---
Portable chest, 06/07/2017: History: Right chest pain The heart size and pulmonary vascularity are normal. There is a calcified granuloma in the right base. No pulmonary infiltrate is seen. There is no evidence of pleural fluid. IMPRESSION: No acute cardiopulmonary abnormality is detected.
[2017-06-08] MEDS ORDERED: LIDOCAINE 1% / SOD BICARB 8.4% 20 ML VIAL. IJ ONE ×2 (07:57→09:45)
[2017-06-08] MEDS ORDERED: MIDAZOLAM HCL/PF 5 MG/5 ML VIAL. ONE (08:34)
[2017-06-08] MEDS ORDERED: fentaNYL PF VIAL 250 MCG/5 ML VIAL ONE (08:34)
[2017-06-08] MEDS ORDERED: ceFAZolin 2GM PREMIX 2 GM/50 ML BAG IV ONE (09:00)
[2017-06-08] MEDS: POLYETHYLENE GLYCOL 3350 17 GM PACKET. PO SCH (09:00)
[2017-06-08] MEDS: ASPIRIN ENTERIC COATED 81 MG TABLET.DR. PO SCH (09:00)
[2017-06-08] MEDS ORDERED: fentaNYL PF VIAL 250 MCG/5 ML VIAL IV ONE (09:45)
[2017-06-08] MEDS ORDERED: MIDAZOLAM HCL/PF 5 MG/5 ML VIAL. IV ONE (09:45)
--- NOTE | 2017-06-08 10:28 | PDOC ---
Objective: Objective: Reviewed w/ RN - has stooled a few times after enema, feels less full. Vital Signs: Vital Signs Date Time Temp Pulse Resp B/P (MAP) Pulse Ox O2 Delivery O2 Flow Rate FiO2 06/08/17 09:43 76 17 98 Nasal Cannula 2.0 06/08/17 07:00 98.0 143/65 (91) 98.0 Labs: Laboratory Tests Test 06/07/17 11:26 06/07/17 17:06 06/07/17 21:14 06/08/17 03:40 Glucose (Fingerstick) 169 mg/dL 156 mg/dL 118 mg/dL White Blood Count 7.6 x10^3/uL Red Blood Count 2.96 x10^6/uL Hemoglobin 9.1 g/dL Hematocrit 27.1 % Mean Corpuscular Volume 92 fL Mean Corpuscular Hemoglobin 31 pg Mean Corpuscular Hemoglobin Concent 34 g/dL Red Cell Distribution Width 14.3 % Platelet Count 190 x10^3/uL Neutrophils (%) (Auto) 72 % Lymphocytes (%) (Auto) 14 % Monocytes (%) (Auto) 9 % Eosinophils (%) (Auto) 5 % Basophils (%) (Auto) 1 % Neutrophils # (Auto) 5.4 x10^3uL Lymphocytes # (Auto) 1.0 x10^3/uL Monocytes # (Auto) 0.7 x10^3/uL Eosinophils # (Auto) 0.4 x10^3/uL Basophils # (Auto) 0.1 x10^3/uL Sodium Level 146 mmol/L Potassium Level 4.0 mmol/L Chloride Level 114 mmol/L Carbon Dioxide Level 24 mmol/L Anion Gap 8 Blood Urea Nitrogen 22 mg/dL Creatinine 0.9 mg/dL Estimated GFR (Cockcroft-Gault) 60.9 Glucose Level 105 mg/dL Calcium Level 7.9 mg/dL Magnesium Level 1.4 mg/dL PE: GEN: NAD NEURO/PSYCH: asleep, did not awake A/P: Constipation - resolved S/p vertebroplasty -- Improved GI-mahoney, will follow. VAN OROSCO Jun 08, 2017 10:28
[2017-06-08] MEDS: CEFPODOXIME PROXETIL 100 MG TABLET. PO SCH ×2 (10:54→20:39)
[2017-06-08] MEDS: CHOLECALCIFEROL (VITAMIN D3) 1,000 UNIT TABLET PO SCH (10:54)
[2017-06-08] MEDS: CARISOPRODOL 350 MG TABLET PO SCH ×2 (10:54→20:39)
[2017-06-08] MEDS: LACTOBACILLUS RHAMNOSUS GG 1 CAPSULE. PO SCH ×2 (10:54→20:39)
[2017-06-08] MEDS: SALIVA STIMULANT AGENT 44ML SPRAY BOTTLE. PO PRN (10:55)
[2017-06-08] MEDS: HYDROcodone/APAP 5/325MG 1 TAB TABLET PO PRN (10:59)
--- NOTE | 2017-06-08 11:44 | PDOC ---
Renal-Progress Notes Subjective Notes Notes STABLE History of Present Illness Hx of present illness BETTER Vitals Vitals Vital Signs Date Time Temp Pulse Resp B/P (MAP) Pulse Ox O2 Delivery O2 Flow Rate FiO2 06/08/17 10:59 16 Room Air 06/08/17 09:43 76 98 2.0 06/08/17 07:00 98.0 143/65 (91) 98.0 Weight Weight [ ] I.O. Intake and Output Intake and Output 06/08/17 07:00 Intake Total 620 ml Output Total 200 ml Balance 420 ml Intake Oral 620 ml Output Urine Total 200 ml # Voids 5 # Bowel Movements 5 Labs Labs Laboratory Tests Test 06/07/17 17:06 06/07/17 21:14 06/08/17 03:40 Glucose (Fingerstick) 156 mg/dL (70-99) 118 mg/dL (70-99) White Blood Count 7.6 x10^3/uL (4.0-11.0) Red Blood Count 2.96 x10^6/uL (3.50-5.40) Hemoglobin 9.1 g/dL (12.0-15.5) Hematocrit 27.1 % (36.0-47.0) Mean Corpuscular Volume 92 fL (79-100) Mean Corpuscular Hemoglobin 31 pg (25-35) Mean Corpuscular Hemoglobin Concent 34 g/dL (31-37) Red Cell Distribution Width 14.3 % (11.5-14.5) Platelet Count 190 x10^3/uL (140-400) Neutrophils (%) (Auto) 72 % (31-73) Lymphocytes (%) (Auto) 14 % (24-48) Monocytes (%) (Auto) 9 % (0-9) Eosinophils (%) (Auto) 5 % (0-3) Basophils (%) (Auto) 1 % (0-3) Neutrophils # (Auto) 5.4 x10^3uL (1.8-7.7) Lymphocytes # (Auto) 1.0 x10^3/uL (1.0-4.8) Monocytes # (Auto) 0.7 x10^3/uL (0.0-1.1) Eosinophils # (Auto) 0.4 x10^3/uL (0.0-0.7) Basophils # (Auto) 0.1 x10^3/uL (0.0-0.2) Sodium Level 146 mmol/L (136-145) Potassium Level 4.0 mmol/L (3.5-5.1) Chloride Level 114 mmol/L (98-107) Carbon Dioxide Level 24 mmol/L (21-32) Anion Gap 8 (6-14) Blood Urea Nitrogen 22 mg/dL (7-20) Creatinine 0.9 mg/dL (0.6-1.0) Estimated GFR (Cockcroft-Gault) 60.9 Glucose Level 105 mg/dL (70-99) Calcium Level 7.9 mg/dL (8.5-10.1) Magnesium Level 1.4 mg/dL (1.8-2.4) Review of Systems Constitutional: yes: weakness, alert, oriented Ears/Nose/Throat: Yes: no symptom reported Eyes: Yes: no symptom reported Pulmonary: Yes no symptom reported Cardiovascular: Yes no symptom reported Gastrointestional: Yes: no symptom reported Genitourinary: Yes: no symptom reported Musculoskeletal: Yes: joint pain Skin: Yes no symptom reported Psychiatric/Neurological: Yes: no symptom reported Endocrine: Yes: no symptom reported Physical Exam General Appearance: no apparent distress Skin: warm Respiratory: bilateral CTA Heart: S1S2 Abdomen: soft, bowel sounds present Genitourinary: bladder flat Extremities: pulses present, no edema Assessment Assessment IMP DEHYDRATION CHRISTIN-RESOLVED L5 PLATE FX BILATERAL SACRAL FX DM II HTN LOW K-RESOLVED LOW MAG PLAN ENC PO DECREASE IVF RATE REPLACE MG WILL SIGN OFF CHRIS GILBERT MD Jun 08, 2017 11:44
--- NOTE | 2017-06-08 12:28 | PDOC ---
PROGRESS NOTES Chief Complaint Chief Complaint Abd pain/constipation, acute ileus, Dehydration, vasomotor nephropathy, POA Acute Kidney injury improving, now with hypernatremia and hypokalemia B/l sacral Fx DM II, HTN POST Vertebroplasty distended gallbladder History of Present Illness History of Present Illness Pt seen and examined today at the bedside, daughter and family present during examination, questions and concerns addressed BUN and Creatinine improving, 90 and 1.7,on 06/06, 40 and 1.1 today had considered sacroplasty, cancelled, change IV fluid, hypernatremia, hypokalemia, Vitals Vitals Vital Signs Date Time Temp Pulse Resp B/P (MAP) Pulse Ox O2 Delivery O2 Flow Rate FiO2 06/08/17 10:59 16 Room Air 06/08/17 09:43 76 98 2.0 06/08/17 07:00 98.0 143/65 (91) 98.0 Physical Exam Physical Exam Physical Exam Physical Exam Eyes: Scleral anicteric General: Alert, Oriented X3, Cooperative, mild distress Heart: Regular rate, Normal S1, Normal S2, Other (no gallops clicks or rubs) Lungs: Clear, Other (No wheezes or crackles) Abdomen: Normal bowel sounds, Soft, No tenderness Extremities: No cyanosis, No edema, Normal pulses Skin: No rashes, No significant lesion Eyes: Scleral anicteric General: Alert, Oriented X3, Cooperative, mild distress Heart: Regular rate, Normal S1, Normal S2, Other (no gallops clicks or rubs) Lungs: Clear, Other (No wheezes or crackles) Abdomen: Normal bowel sounds, Soft, No tenderness Extremities: No cyanosis, No edema, Normal pulses Skin: No rashes, No significant lesion Labs LABS Ventilation/perfusion lung scan. History: Elevated d-dimer Ventilation study was done using 33 mCi xenon-133. There is mild patchy areas of decreased ventilation possible COPD which tend of filling on later images. Perfusion images were done using 5.5 mCi technetium 99 MAA. There is no segmental perfusion defect. There is no ventilation/perfusion mismatch Impression: 1. Low probability for a pulmonary embolus. DICTATED and SIGNED BY: ANALISA ROD MD MRI Lumbar Spine without contrast History: Lumbosacral fracture, degenerative disc disease Technique: Multiplanar, multi sequential noncontrast MR imaging was performed of the lumbar spine. Contrast: None Comparison: None Findings: There is sacral fracture centrally at S2 with associated edema signified by STIR hyperintense and T1 hypointense signal, edema involving the bilateral sacral ala. Lumbar vertebral body stature is preserved. There is grade 1 anterior spondylolisthesis L4-5. Intervertebral disc spaces are overall preserved, mild disc desiccation L3-4 to L5-S1. There are anterior annular tears L1-L2 through L4-5, posterior annular tears L4-5 and L5-S1. Visualized gallbladder appears distended, internal heterogeneous signal on T1 sequence. L1-L2: Neural foramina and spinal canal are adequate. L2-L3: Neural foramina and spinal canal are adequate. There is minimal facet degenerative change and buckling of the ligamentum flavum. L3-L4: There is minimal buckling of the ligamentum flavum and facet degenerative change greater on the right. Spinal canal and neural foramina are adequate. L4-L5: There is mild buckling of the ligamentum flavum and mild to moderate facet degenerative change. There is shallow posterior central protrusion/small extrusion extending slightly below the intervertebral disc space centrally. There is very mild narrowing of the far right lateral recess. There is mild neural foramina compromise bilaterally. L5-S1: Spinal canal and right neural foramen are adequate, minimal posterior narrowing of the left neural foramen by facet. There is moderate facet hypertrophic change greater on the left. Impression: 1. There is recent sacral fracture. 2. There is no significant lumbar spinal stenosis, very mild narrowing of the far right lateral recess L4-5. There is very mild grade 1 anterior spondylolisthesis at L4-5 due to facet degenerative change. 3. There is mild neural foramina compromise bilaterally at L4-5. 4. Visualized gallbladder appears distended with internal heterogeneous signal which may be due to sludge or stones. Electronically signed by: Glenn Melendez MD (06/07/2017 2:21 PM) [email or web address] Laboratory Tests Test 06/07/17 17:06 06/07/17 21:14 06/08/17 03:40 Glucose (Fingerstick) 156 mg/dL (70-99) 118 mg/dL (70-99) White Blood Count 7.6 x10^3/uL (4.0-11.0) Red Blood Count 2.96 x10^6/uL (3.50-5.40) Hemoglobin 9.1 g/dL (12.0-15.5) Hematocrit 27.1 % (36.0-47.0) Mean Corpuscular Volume 92 fL (79-100) Mean Corpuscular Hemoglobin 31 pg (25-35) Mean Corpuscular Hemoglobin Concent 34 g/dL (31-37) Red Cell Distribution Width 14.3 % (11.5-14.5) Platelet Count 190 x10^3/uL (140-400) Neutrophils (%) (Auto) 72 % (31-73) Lymphocytes (%) (Auto) 14 % (24-48) Monocytes (%) (Auto) 9 % (0-9) Eosinophils (%) (Auto) 5 % (0-3) Basophils (%) (Auto) 1 % (0-3) Neutrophils # (Auto) 5.4 x10^3uL (1.8-7.7) Lymphocytes # (Auto) 1.0 x10^3/uL (1.0-4.8) Monocytes # (Auto) 0.7 x10^3/uL (0.0-1.1) Eosinophils # (Auto) 0.4 x10^3/uL (0.0-0.7) Basophils # (Auto) 0.1 x10^3/uL (0.0-0.2) Sodium Level 146 mmol/L (136-145) Potassium Level 4.0 mmol/L (3.5-5.1) Chloride Level 114 mmol/L (98-107) Carbon Dioxide Level 24 mmol/L (21-32) Anion Gap 8 (6-14) Blood Urea Nitrogen 22 mg/dL (7-20) Creatinine 0.9 mg/dL (0.6-1.0) Estimated GFR (Cockcroft-Gault) 60.9 Glucose Level 105 mg/dL (70-99) Calcium Level 7.9 mg/dL (8.5-10.1) Magnesium Level 1.4 mg/dL (1.8-2.4) Assessment and Plan Assessmemt and Plan 1. Abd pain/constipation, acute ileus, 2. Dehydration, vasomotor nephropathy, POA 3. Acute Kidney injury improving, now with hypernatremia and hypokalemia 4. B/l sacral Fx 5. DM II, 6. HTN 7. distended gallbladder on mri with sludge/ stones suspected reviewed all images, sonogram requested Problems: Comment Review of Relevant I have reviewed the following items mikey (where applicable) has been applied. Labs Laboratory Tests Test 06/06/17 16:47 06/06/17 21:11 06/07/17 04:38 06/07/17 07:25 Glucose (Fingerstick) 104 mg/dL (70-99) 123 mg/dL (70-99) White Blood Count 9.9 x10^3/uL (4.0-11.0) Red Blood Count 3.36 x10^6/uL (3.50-5.40) Hemoglobin 10.3 g/dL (12.0-15.5) Hematocrit 30.9 % (36.0-47.0) Mean Corpuscular Volume 92 fL (79-100) Mean Corpuscular Hemoglobin 31 pg (25-35) Mean Corpuscular Hemoglobin Concent 33 g/dL (31-37) Red Cell Distribution Width 14.0 % (11.5-14.5) Platelet Count 227 x10^3/uL (140-400) Neutrophils (%) (Auto) 81 % (31-73) Lymphocytes (%) (Auto) 8 % (24-48) Monocytes (%) (Auto) 8 % (0-9) Eosinophils (%) (Auto) 3 % (0-3) Basophils (%) (Auto) 0 % (0-3) Neutrophils # (Auto) 8.0 x10^3uL (1.8-7.7) Lymphocytes # (Auto) 0.8 x10^3/uL (1.0-4.8) Monocytes # (Auto) 0.8 x10^3/uL (0.0-1.1) Eosinophils # (Auto) 0.3 x10^3/uL (0.0-0.7) Basophils # (Auto) 0.0 x10^3/uL (0.0-0.2) Hemoglobin A1c 5.8 % (4.8-5.6) Sodium Level 148 mmol/L (136-145) Potassium Level 3.3 mmol/L (3.5-5.1) Chloride Level 113 mmol/L (98-107) Carbon Dioxide Level 23 mmol/L (21-32) Anion Gap 12 (6-14) Blood Urea Nitrogen 40 mg/dL (7-20) Creatinine 1.1 mg/dL (0.6-1.0) Estimated GFR (Cockcroft-Gault) 48.3 BUN/Creatinine Ratio 36 (6-20) Glucose Level 104 mg/dL (70-99) Calcium Level 8.1 mg/dL (8.5-10.1) Total Bilirubin 0.3 mg/dL (0.2-1.0) Aspartate Amino Transf (AST/SGOT) 26 U/L (15-37) Alanine Aminotransferase (ALT/SGPT) 22 U/L (14-59) Alkaline Phosphatase 138 U/L (46-116) Total Protein 5.9 g/dL (6.4-8.2) Albumin 2.6 g/dL (3.4-5.0) Albumin/Globulin Ratio 0.8 (1.0-1.7) Amylase Level 74 U/L (25-115) Test 06/07/17 08:26 06/07/17 11:26 06/07/17 17:06 06/07/17 21:14 Glucose (Fingerstick) 91 mg/dL (70-99) 169 mg/dL (70-99) 156 mg/dL (70-99) 118 mg/dL (70-99) Test 06/08/17 03:40 White Blood Count 7.6 x10^3/uL (4.0-11.0) Red Blood Count 2.96 x10^6/uL (3.50-5.40) Hemoglobin 9.1 g/dL (12.0-15.5) Hematocrit 27.1 % (36.0-47.0) Mean Corpuscular Volume 92 fL (79-100) Mean Corpuscular Hemoglobin 31 pg (25-35) Mean Corpuscular Hemoglobin Concent 34 g/dL (31-37) Red Cell Distribution Width 14.3 % (11.5-14.5) Platelet Count 190 x10^3/uL (140-400) Neutrophils (%) (Auto) 72 % (31-73) Lymphocytes (%) (Auto) 14 % (24-48) Monocytes (%) (Auto) 9 % (0-9) Eosinophils (%) (Auto) 5 % (0-3) Basophils (%) (Auto) 1 % (0-3) Neutrophils # (Auto) 5.4 x10^3uL (1.8-7.7) Lymphocytes # (Auto) 1.0 x10^3/uL (1.0-4.8) Monocytes # (Auto) 0.7 x10^3/uL (0.0-1.1) Eosinophils # (Auto) 0.4 x10^3/uL (0.0-0.7) Basophils # (Auto) 0.1 x10^3/uL (0.0-0.2) Sodium Level 146 mmol/L (136-145) Potassium Level 4.0 mmol/L (3.5-5.1) Chloride Level 114 mmol/L (98-107) Carbon Dioxide Level 24 mmol/L (21-32) Anion Gap 8 (6-14) Blood Urea Nitrogen 22 mg/dL (7-20) Creatinine 0.9 mg/dL (0.6-1.0) Estimated GFR (Cockcroft-Gault) 60.9 Glucose Level 105 mg/dL (70-99) Calcium Level 7.9 mg/dL (8.5-10.1) Magnesium Level 1.4 mg/dL (1.8-2.4) Laboratory Tests Test 06/07/17 17:06 06/07/17 21:14 06/08/17 03:40 Glucose (Fingerstick) 156 mg/dL (70-99) 118 mg/dL (70-99) White Blood Count 7.6 x10^3/uL (4.0-11.0) Red Blood Count 2.96 x10^6/uL (3.50-5.40) Hemoglobin 9.1 g/dL (12.0-15.5) Hematocrit 27.1 % (36.0-47.0) Mean Corpuscular Volume 92 fL (79-100) Mean Corpuscular Hemoglobin 31 pg (25-35) Mean Corpuscular Hemoglobin Concent 34 g/dL (31-37) Red Cell Distribution Width 14.3 % (11.5-14.5) Platelet Count 190 x10^3/uL (140-400) Neutrophils (%) (Auto) 72 % (31-73) Lymphocytes (%) (Auto) 14 % (24-48) Monocytes (%) (Auto) 9 % (0-9) Eosinophils (%) (Auto) 5 % (0-3) Basophils (%) (Auto) 1 % (0-3) Neutrophils # (Auto) 5.4 x10^3uL (1.8-7.7) Lymphocytes # (Auto) 1.0 x10^3/uL (1.0-4.8) Monocytes # (Auto) 0.7 x10^3/uL (0.0-1.1) Eosinophils # (Auto) 0.4 x10^3/uL (0.0-0.7) Basophils # (Auto) 0.1 x10^3/uL (0.0-0.2) Sodium Level 146 mmol/L (136-145) Potassium Level 4.0 mmol/L (3.5-5.1) Chloride Level 114 mmol/L (98-107) Carbon Dioxide Level 24 mmol/L (21-32) Anion Gap 8 (6-14) Blood Urea Nitrogen 22 mg/dL (7-20) Creatinine 0.9 mg/dL (0.6-1.0) Estimated GFR (Cockcroft-Gault) 60.9 Glucose Level 105 mg/dL (70-99) Calcium Level 7.9 mg/dL (8.5-10.1) Magnesium Level 1.4 mg/dL (1.8-2.4) Medications Current Medications Sodium Chloride 1,000 ml @ 75 mls/hr [id number] IV Last administered on 02:47; Start 06/05/17 at 04:00; Stop 06/07/17 at 08:59; Status DC Fentanyl Citrate (Fentanyl 2ml Vial) 50 mcg PRN Q2HR PRN IV SEVERE PAIN Last administered on 06/06/17 02:41; Start 06/05/17 at 04:00 Ondansetron HCl (Zofran) 4 mg PRN Q6HRS PRN IV NAUSEA/VOMITING; Start 06/05/17 at 04:00 Ceftriaxone Sodium 1 gm/ Dextrose 50 ml @ 100 mls/hr Q24H IV ; Start 06/05/17 at 04:00; Status UNV Ceftriaxone Sodium (Rocephin) 1 gm Q24H IVP Last administered on 06/05/17 22: 11; Start 06/05/17 at 22:00; Stop 06/06/17 at 14:45; Status DC Aspirin (Ecotrin) 81 mg DAILY PO Last administered on 06/07/17 09:17; Start 06/05/17 at 11:00 Atorvastatin Calcium (Lipitor) 40 mg QHS PO Last administered on 06/07/17 21: 53; Start 06/05/17 at 21:00 Carisoprodol (Soma) 350 mg BID PO Last administered on 06/08/17 10:54; Start 06/05/17 at 11:00 Vitamin D (Vitamin D3) 1,000 unit DAILY PO Last administered on 06/08/17 10: 54; Start 06/05/17 at 11:00 Acetaminophen/ Hydrocodone Bitart (Lortab 7.5/325) 1 tab PRN Q6HRS PRN PO PAIN Last administered on 06/07/17 21:54; Start 06/05/17 at 10:15 Acetaminophen/ Hydrocodone Bitart (Lortab 5/325) 1 tab PRN Q6HRS PRN PO PAIN Last administered on 06/08/17 10:59; Start 06/05/17 at 10:15 Levothyroxine Sodium (Synthroid) 88 mcg DAILY07 PO Last administered on 06:20; Start 06/06/17 at 07:00 Pioglitazone HCl (Actos) 15 mg DAILY PO ; Start 06/05/17 at 11:30; Stop at 11:30; Status DC Lisinopril (Prinivil) 10 mg DAILY PO ; Start 06/05/17 at 11:00; Stop 06/05/17 at 12:05; Status DC Magnesium Citrate (Citroma) 296 ml 1X ONCE PO Last administered on 06/05/17 14:05; Start 06/05/17 at 10:30; Stop 06/05/17 at 10:31; Status DC Polyethylene Glycol (miraLAX PACKET) 17 gm DAILY PO Last administered on 09:00; Start 06/05/17 at 11:00 Metformin HCl (Glucophage) 850 mg DAILY PO ; Start 06/06/17 at 09:00; Stop 04/13 at 09:00; Status DC Lactobacillus Rhamnosus (Culturelle) 1 cap BID PO Last administered on 10:54; Start 06/05/17 at 21:00 Trazodone HCl (Desyrel) 50 mg QHS PO Last administered on 06/06/17 21:07; Start 06/06/17 at 21:00 Cefpodoxime Proxetil (Vantin) 100 mg BID PO Last administered on 06/08/17 10: 54; Start 06/06/17 at 21:00; Stop 06/13/17 at 09:01 Phenyleph/Shark Oil/Min Oil/Petrol (Preparation H) 1 allen TID PRN PRN RC RECTAL PAIN Last administered on 06/07/17 21:54; Start 06/06/17 at 18:30 Potassium Chloride/Sodium Chloride 1,000 ml @ 75 mls/hr 1X ONCE IV Last administered on 06/07/17 09:25; Start 06/07/17 at 09:00; Stop 06/07/17 at 22 :19; Status DC Potassium Chloride (Klor-Con) 40 meq 1X ONCE PO Last administered on 09:17; Start 06/07/17 at 09:00; Stop 06/07/17 at 09:04; Status DC Saliva Substitute (Biotene Moisturizing Mouth) 2 spray PRN Q15MIN PRN PO DRY MOUTH Last administered on 06/08/17 10:55; Start 06/07/17 at 09:15 Potassium Chloride (Klor-Con) 20 meq 1X ONCE PO Last administered on 14:21; Start 06/07/17 at 12:00; Stop 06/07/17 at 12:01; Status DC Sodium Monofluorophosphate (Fleet Adult) 133 ml 1X ONCE MD Last administered on 06/07/17 15:22; Start 06/07/17 at 14:30; Stop 06/07/17 at 14:31; Status DC Bisacodyl (Dulcolax Supp) 10 mg 1X ONCE MD ; Start 06/07/17 at 14:30; Stop at 14:31; Status DC Lidocaine/Sodium Bicarbonate (Buffered Lidocaine 1%) 20 ml STK-MED ONCE IJ ; Start 06/08/17 at 07:57; Stop 06/08/17 at 07:58; Status DC Midazolam HCl (Versed) 5 mg STK-MED ONCE .ROUTE ; Start 06/08/17 at 08:34; Stop 06/08/17 at 08:35; Status DC Fentanyl Citrate (Fentanyl 5ml Vial) 250 mcg STK-MED ONCE .ROUTE ; Start at 08:34; Stop 06/08/17 at 08:35; Status DC Cefazolin Sodium/ Dextrose 50 ml @ As Directed STK-MED ONCE IV ; Start at 08:51; Stop 06/08/17 at 08:52; Status DC Lidocaine/Sodium Bicarbonate (Buffered Lidocaine 1%) 5 ml 1X ONCE IJ Last administered on 06/08/17 09:42; Start 06/08/17 at 09:45; Stop 06/08/17 at 09 :46; Status DC Midazolam HCl (Versed) 4 mg 1X ONCE IV Last administered on 06/08/17 09:42; Start 06/08/17 at 09:45; Stop 06/08/17 at 09:46; Status DC Fentanyl Citrate (Fentanyl 5ml Vial) 200 mcg 1X ONCE IV Last administered on 06/08/17 09:43; Start 06/08/17 at 09:45; Stop 06/08/17 at 09:46; Status DC Cefazolin Sodium/ Dextrose 50 ml @ 100 mls/hr 1X ONCE IV Last administered on 06/08/17 08:23; Start 06/08/17 at 09:45; Stop 06/08/17 at 10:14; Status DC Magnesium Sulfate/ Dextrose 50 ml @ 25 mls/hr 1X ONCE IV ; Start 06/08/17 at 12:30; Stop 06/08/17 at 14:29 Active Scripts Active Reported Vitamin D3 (Cholecalciferol (Vitamin D3)) 1,000 Unit Tablet 1 Tab PO DAILY Soma (Carisoprodol) 350 Mg Tablet 1 Tab PO BID Quinapril Hcl 10 Mg Tablet 1 Tab PO DAILY Pioglitazone-Metformin 15-850 (Pioglitazone Hcl/Metformin Hcl) 1 Each Tablet 1 Each PO DAILY Levothyroxine Sodium 88 Mcg Tablet 1 Tab PO DAILY Hydrocodone-Apap 7.5-325 (Hydrocodone Bit/Acetaminophen) 1 Each Tablet 1 Tab PO PRN Q6HRS PRN Magnolia 5-325 Tablet (Acetaminophen/Hydrocodone Bitart) 1 Each Tablet 1 Tab PO PRN Q6HRS PRN Centrum Silver Tablet (Multivits-Min/Fa/Lycopene/Lut) 1 Each Tablet 1 Each PO Atorvastatin Calcium 40 Mg Tablet 1 Tab PO DAILY Aspir 81 (Aspirin) 81 Mg Tablet. 1 Tab PO DAILY Vitals/I & O Vital Sign - Last 24 Hours 06/07/17 06/07/17 06/07/17 06/07/17 15:00 19:00 19:56 21:54 Temp 96.8 97.7 96.8 97.7 Pulse 87 73 Resp 18 16 16 B/P (MAP) 111/54 (73) 156/59 (91) Pulse Ox 93 97 93 O2 Delivery Room Air Room Air Room Air Room Air 06/07/17 06/07/17 06/08/17 06/08/17 22:54 23:00 03:00 07:00 Temp 97.9 97.9 98.0 97.9 97.9 98.0 Pulse 88 78 82 Resp 18 B/P (MAP) 130/54 (79) 139/62 (87) 143/65 (91) Pulse Ox 93 95 97 98 O2 Delivery Room Air Room Air Room Air Room Air 06/08/17 06/08/17 06/08/17 06/08/17 08:00 08:42 08:48 08:53 Pulse 75 85 79 Resp 23 Pulse Ox 100 100 99 O2 Delivery Room Air Nasal Cannula Nasal Cannula Nasal Cannula O2 Flow Rate 2.0 2.0 2.0 06/08/17 06/08/17 06/08/17 06/08/17 08:58 09:03 09:08 09:13 Pulse 69 79 65 64 Resp 18 16 14 Pulse Ox 98 98 99 97 O2 Delivery Nasal Cannula Nasal Cannula Nasal Cannula Nasal Cannula O2 Flow Rate 2.0 2.0 2.0 2.0 06/08/17 06/08/17 06/08/17 06/08/17 09:18 09:23 09:28 09:33 Pulse 70 79 78 74 Resp 19 Pulse Ox 97 95 97 100 O2 Delivery Nasal Cannula Nasal Cannula Nasal Cannula Nasal Cannula O2 Flow Rate 2.0 2.0 2.0 2.0 06/08/17 06/08/17 06/08/17 06/08/17 09:38 09:43 09:43 10:59 Pulse 82 76 Resp 16 Pulse Ox 97 96 98 O2 Delivery Nasal Cannula Nasal Cannula Nasal Cannula Room Air O2 Flow Rate 2.0 2.0 2.0 Intake and Output 06/07/17 06/07/17 06/08/17 15:00 23:00 07:00 Intake Total 320 ml 300 ml Output Total 200 ml Balance 320 ml 100 ml NAJMA HINES MD Jun 08, 2017 12:28
[2017-06-08] MEDS ORDERED: MAGNESIUM SULFATE 2GM 50 ML IV ONE (12:30)
[2017-06-08] MEDS: PHENYLEPH/MINERAL OIL/PETROLAT RECTAL OINTMENT 28GM TUBE. RC PRN ×2 (17:59→20:41)
[2017-06-08] MEDS: HYDROcodone/APAP 7.5/325MG 1 TAB TABLET PO PRN (18:02)
[2017-06-08] MEDS: ATORVASTATIN CALCIUM 40 MG TABLET. PO SCH (20:39)
[2017-06-08] MEDS: traZODone 50 MG TABLET. PO SCH (20:39)
[2017-06-09] VITALS (7 sets, daily range): BP systolic 125–151; BP diastolic 54–84
[2017-06-09] MEDS: HYDROcodone/APAP 5/325MG 1 TAB TABLET PO PRN (03:48)
[2017-06-09 05:29] LABS: BASO % 0 % (0-3); EOS % 3 % (0-3); HEMATOCRIT 29.8 % (36.0-47.0); HEMOGLOBIN 9.9 g/dL (12.0-15.5); LYMPH # 0.9 x10^3/uL (1.0-4.8); LYMPH % 9 % (24-48); MEAN CORPUSCULAR HEMOGLOBIN 30 pg (25-35); MEAN CORPUSCULAR HGB CONC 33 g/dL (31-37); MEAN CORPUSCULAR VOLUME 91 fL (79-100); MONO % 7 % (0-9); NEUT % 81 % (31-73); PLATELET COUNT 195 x10^3/uL (140-400); RED BLOOD COUNT 3.27 x10^6/uL (3.50-5.40); RED CELL DISTRIBUTION WIDTH 14.1 % (11.5-14.5)
[2017-06-09 06:03] LABS: ALBUMIN 2.4 g/dL (3.4-5.0); ALBUMIN/GLOBULIN RATIO 0.8 (1.0-1.7); CALCIUM 8.1 mg/dL (8.5-10.1); CREATININE 0.9 mg/dL (0.6-1.0); GFR 60.9; POTASSIUM 3.4 mmol/L (3.5-5.1); TOTAL BILIRUBIN 0.3 mg/dL (0.2-1.0); TOTAL PROTEIN 5.6 g/dL (6.4-8.2)
[2017-06-09] MEDS: LEVOTHYROXINE 88 MCG TABLET PO SCH (06:17)
--- NOTE | 2017-06-09 08:33 | RAD ---
Indication: Abnormal MRI, further evaluation of the gallbladder. Technique: Ultrasound abdomen complete was performed. Comparison is an MRI lumbar spine from yesterday. Findings: Visualized pancreas is unremarkable. There is atheromatous disease in the abdominal aorta without aneurysm. IVC is patent. Liver is normal in size and echogenicity. Gallbladder is distended. There is cholelithiasis but no gallbladder wall thickening or pericholecystic fluid. Common bile duct is within normal limits for age at 6 mm. There is increase in echogenicity of the kidneys which is nonspecific, but can be a finding of medical renal disease. The spleen is not enlarged. Impression: Cholelithiasis. No sonographic evidence of acute cholecystitis. If further workup is required, consider hepatobiliary scintigraphy with ejection fraction.
--- NOTE | 2017-06-09 08:55 | RAD ---
CT-guided bilateral percutaneous sacroplasty 06/09/2017 Indication: Bilateral sacral fractures. Pain refractory to conservative treatment measures. Discussion: The risks and benefits of the procedure were discussed the patient. Informed consent was obtained. The patient was brought to the CT scanner and placed in the prone position. Timeout procedure was performed. The posterior low back and pelvis was prepped and draped using maximum sterile barrier technique. CT imaging was obtained delineating sacral anatomy. Once an appropriate site for skin entry was selected 1% lidocaine without epinephrine was administered for local anesthesia. Under intermittent CT guidance two trocar needles were advanced into the sacrum, one on each side, directed towards the ala, lateral to the foramina. Once adequate needle position again achieved, bone cement was slowly instilled into the sacrum with intermittent CT guidance. No abnormal extravasation was appreciated. Once adequate filling had been achieved the needles were removed and manual pressure held. Sterile dressings were applied. No immediate competitions were identified. The procedures performed under conscious sedation including continuous cardiopulmonary monitoring via dedicated sedation nurse. Sedation time: 1 hour Impression: Bilateral percutaneous sacroplasty. PQRS Compliance Statement: One or more of the following individualized dose reduction techniques were utilized for this examination: 1. Automated exposure control 2. Adjustment of the mA and/or kV according to patient size 3. Use of iterative reconstruction technique
[2017-06-09] MEDS: ASPIRIN ENTERIC COATED 81 MG TABLET.DR. PO SCH (09:00)
[2017-06-09] MEDS: CARISOPRODOL 350 MG TABLET PO SCH ×2 (09:00→21:22)
[2017-06-09] MEDS: LACTOBACILLUS RHAMNOSUS GG 1 CAPSULE. PO SCH ×2 (09:00→21:22)
[2017-06-09] MEDS: POLYETHYLENE GLYCOL 3350 17 GM PACKET. PO SCH (09:00)
[2017-06-09] MEDS: CHOLECALCIFEROL (VITAMIN D3) 1,000 UNIT TABLET PO SCH (09:00)
[2017-06-09] MEDS: CEFPODOXIME PROXETIL 100 MG TABLET. PO SCH ×2 (09:00→21:22)
[2017-06-09] MEDS: HYDROcodone/APAP 7.5/325MG 1 TAB TABLET PO PRN (09:20)
--- NOTE | 2017-06-09 10:13 | PDOC ---
Subjective: Subjective: Feeling better, still on clears - was a little grumpy when NPO this morning, better now after eating. Stooling. Objective: Vital Signs: Vital Signs Date Time Temp Pulse Resp B/P (MAP) Pulse Ox O2 Delivery O2 Flow Rate FiO2 06/09/17 09:20 Room Air 06/09/17 07:00 99.9 82 21 125/56 (79) 94 99.9 06/08/17 09:43 2.0 Labs: Laboratory Tests Test 06/09/17 04:30 White Blood Count 10.0 x10^3/uL Red Blood Count 3.27 x10^6/uL Hemoglobin 9.9 g/dL Hematocrit 29.8 % Mean Corpuscular Volume 91 fL Mean Corpuscular Hemoglobin 30 pg Mean Corpuscular Hemoglobin Concent 33 g/dL Red Cell Distribution Width 14.1 % Platelet Count 195 x10^3/uL Neutrophils (%) (Auto) 81 % Lymphocytes (%) (Auto) 9 % Monocytes (%) (Auto) 7 % Eosinophils (%) (Auto) 3 % Basophils (%) (Auto) 0 % Neutrophils # (Auto) 8.1 x10^3uL Lymphocytes # (Auto) 0.9 x10^3/uL Monocytes # (Auto) 0.7 x10^3/uL Eosinophils # (Auto) 0.3 x10^3/uL Basophils # (Auto) 0.0 x10^3/uL Sodium Level 143 mmol/L Potassium Level 3.4 mmol/L Chloride Level 109 mmol/L Carbon Dioxide Level 26 mmol/L Anion Gap 8 Blood Urea Nitrogen 11 mg/dL Creatinine 0.9 mg/dL Estimated GFR (Cockcroft-Gault) 60.9 BUN/Creatinine Ratio 12 Glucose Level 119 mg/dL Calcium Level 8.1 mg/dL Total Bilirubin 0.3 mg/dL Aspartate Amino Transf (AST/SGOT) 29 U/L Alanine Aminotransferase (ALT/SGPT) 21 U/L Alkaline Phosphatase 254 U/L Total Protein 5.6 g/dL Albumin 2.4 g/dL Albumin/Globulin Ratio 0.8 Imaging: Abd US Impression: Cholelithiasis. No sonographic evidence of acute cholecystitis. If further workup is required, consider hepatobiliary scintigraphy with ejection fraction. PE: GEN: NAD LUNGS: clear HEART: RRR ABD: S/ND/NT NEURO/PSYCH: A & O 3 A/P: Constipation - resolved S/p sacroplasty Cholelithiasis - seems incidental finding -- Per GI, okay to [facility]. VAN OROSCO Jun 09, 2017 10:13
--- NOTE | 2017-06-09 12:20 | PDOC ---
PROGRESS NOTES Chief Complaint Chief Complaint Abd pain/constipation, acute ileus, resolving low grade temp, observe Dehydration, vasomotor nephropathy, POA Acute Kidney injury improving, hypernatremia and hypokalemia resolved B/l sacral Fx with intractable pain DM II, HTN POST Vertebroplasty distended gallbladder , sono suggests no cholcystitis, gallstones, suspected incidental finding plan ua advance diet as tolerated try to decrease narcotic use, d/c iv fentanyl re-check serum lipase today incentive spirometry History of Present Illness History of Present Illness Pt seen and examined today at the bedside, daughter and family present during examination, questions and concerns addressed BUN and Creatinine improving, 90 and 1.7,on 06/06, 40 and 1.1 today had considered sacroplasty, cancelled, change IV fluid, hypernatremia, hypokalemia, Vitals Vitals Vital Signs Date Time Temp Pulse Resp B/P (MAP) Pulse Ox O2 Delivery O2 Flow Rate FiO2 06/09/17 10:41 100.2 85 20 137/70 (92) 97 Room Air 100.2 06/08/17 09:43 2.0 Physical Exam Physical Exam PROCEDURE: ABDOMEN COMPLETE Indication: Abnormal MRI, further evaluation of the gallbladder. Technique: Ultrasound abdomen complete was performed. Comparison is an MRI lumbar spine from yesterday. Findings: Visualized pancreas is unremarkable. There is atheromatous disease in the abdominal aorta without aneurysm. IVC is patent. Liver is normal in size and echogenicity. Gallbladder is distended. There is cholelithiasis but no gallbladder wall thickening or pericholecystic fluid. Common bile duct is within normal limits for age at 6 mm. There is increase in echogenicity of the kidneys which is nonspecific, but can be a finding of medical renal disease. The spleen is not enlarged. Impression: Cholelithiasis. No sonographic evidence of acute cholecystitis. If further workup is required, consider hepatobiliary scintigraphy with ejection fraction. DICTATED and SIGNED BY: HARLAN MUNGUIA MD DATE: 06/09/17826 Physical Exam Physical Exam Eyes: Scleral anicteric General: Alert, Oriented X3, Cooperative, mild distress Heart: Regular rate, Normal S1, Normal S2, Other (no gallops clicks or rubs) Lungs: Clear, Other (No wheezes or crackles) Abdomen: Normal bowel sounds, Soft, No tenderness Extremities: No cyanosis, No edema, Normal pulses Skin: No rashes, No significant lesion Eyes: Scleral anicteric General: Alert, Oriented X3, Cooperative, mild distress Heart: Regular rate, Normal S1, Normal S2, Other (no gallops clicks or rubs) Lungs: Clear, Other (No wheezes or crackles) Abdomen: Normal bowel sounds, Soft, No tenderness Extremities: No cyanosis, No edema, Normal pulses Skin: No rashes, No significant lesion Labs LABS Laboratory Tests Test 06/09/17 04:30 White Blood Count 10.0 x10^3/uL (4.0-11.0) Red Blood Count 3.27 x10^6/uL (3.50-5.40) Hemoglobin 9.9 g/dL (12.0-15.5) Hematocrit 29.8 % (36.0-47.0) Mean Corpuscular Volume 91 fL (79-100) Mean Corpuscular Hemoglobin 30 pg (25-35) Mean Corpuscular Hemoglobin Concent 33 g/dL (31-37) Red Cell Distribution Width 14.1 % (11.5-14.5) Platelet Count 195 x10^3/uL (140-400) Neutrophils (%) (Auto) 81 % (31-73) Lymphocytes (%) (Auto) 9 % (24-48) Monocytes (%) (Auto) 7 % (0-9) Eosinophils (%) (Auto) 3 % (0-3) Basophils (%) (Auto) 0 % (0-3) Neutrophils # (Auto) 8.1 x10^3uL (1.8-7.7) Lymphocytes # (Auto) 0.9 x10^3/uL (1.0-4.8) Monocytes # (Auto) 0.7 x10^3/uL (0.0-1.1) Eosinophils # (Auto) 0.3 x10^3/uL (0.0-0.7) Basophils # (Auto) 0.0 x10^3/uL (0.0-0.2) Sodium Level 143 mmol/L (136-145) Potassium Level 3.4 mmol/L (3.5-5.1) Chloride Level 109 mmol/L (98-107) Carbon Dioxide Level 26 mmol/L (21-32) Anion Gap 8 (6-14) Blood Urea Nitrogen 11 mg/dL (7-20) Creatinine 0.9 mg/dL (0.6-1.0) Estimated GFR (Cockcroft-Gault) 60.9 BUN/Creatinine Ratio 12 (6-20) Glucose Level 119 mg/dL (70-99) Calcium Level 8.1 mg/dL (8.5-10.1) Total Bilirubin 0.3 mg/dL (0.2-1.0) Aspartate Amino Transf (AST/SGOT) 29 U/L (15-37) Alanine Aminotransferase (ALT/SGPT) 21 U/L (14-59) Alkaline Phosphatase 254 U/L (46-116) Total Protein 5.6 g/dL (6.4-8.2) Albumin 2.4 g/dL (3.4-5.0) Albumin/Globulin Ratio 0.8 (1.0-1.7) Comment Review of Relevant I have reviewed the following items mikey (where applicable) has been applied. Labs Laboratory Tests Test 06/07/17 17:06 06/07/17 21:14 06/08/17 03:40 06/09/17 04:30 Glucose (Fingerstick) 156 mg/dL (70-99) 118 mg/dL (70-99) White Blood Count 7.6 x10^3/uL (4.0-11.0) 10.0 x10^3/uL (4.0-11.0) Red Blood Count 2.96 x10^6/uL (3.50-5.40) 3.27 x10^6/uL (3.50-5.40) Hemoglobin 9.1 g/dL (12.0-15.5) 9.9 g/dL (12.0-15.5) Hematocrit 27.1 % (36.0-47.0) 29.8 % (36.0-47.0) Mean Corpuscular Volume 92 fL (79-100) 91 fL (79-100) Mean Corpuscular Hemoglobin 31 pg (25-35) 30 pg (25-35) Mean Corpuscular Hemoglobin Concent 34 g/dL (31-37) 33 g/dL (31-37) Red Cell Distribution Width 14.3 % (11.5-14.5) 14.1 % (11.5-14.5) Platelet Count 190 x10^3/uL (140-400) 195 x10^3/uL (140-400) Neutrophils (%) (Auto) 72 % (31-73) 81 % (31-73) Lymphocytes (%) (Auto) 14 % (24-48) 9 % (24-48) Monocytes (%) (Auto) 9 % (0-9) 7 % (0-9) Eosinophils (%) (Auto) 5 % (0-3) 3 % (0-3) Basophils (%) (Auto) 1 % (0-3) 0 % (0-3) Neutrophils # (Auto) 5.4 x10^3uL (1.8-7.7) 8.1 x10^3uL (1.8-7.7) Lymphocytes # (Auto) 1.0 x10^3/uL (1.0-4.8) 0.9 x10^3/uL (1.0-4.8) Monocytes # (Auto) 0.7 x10^3/uL (0.0-1.1) 0.7 x10^3/uL (0.0-1.1) Eosinophils # (Auto) 0.4 x10^3/uL (0.0-0.7) 0.3 x10^3/uL (0.0-0.7) Basophils # (Auto) 0.1 x10^3/uL (0.0-0.2) 0.0 x10^3/uL (0.0-0.2) Sodium Level 146 mmol/L (136-145) 143 mmol/L (136-145) Potassium Level 4.0 mmol/L (3.5-5.1) 3.4 mmol/L (3.5-5.1) Chloride Level 114 mmol/L (98-107) 109 mmol/L (98-107) Carbon Dioxide Level 24 mmol/L (21-32) 26 mmol/L (21-32) Anion Gap 8 (6-14) 8 (6-14) Blood Urea Nitrogen 22 mg/dL (7-20) 11 mg/dL (7-20) Creatinine 0.9 mg/dL (0.6-1.0) 0.9 mg/dL (0.6-1.0) Estimated GFR (Cockcroft-Gault) 60.9 60.9 Glucose Level 105 mg/dL (70-99) 119 mg/dL (70-99) Calcium Level 7.9 mg/dL (8.5-10.1) 8.1 mg/dL (8.5-10.1) Magnesium Level 1.4 mg/dL (1.8-2.4) Gamma Glutamyl Transpeptidase 17 U/L (5-55) BUN/Creatinine Ratio 12 (6-20) Total Bilirubin 0.3 mg/dL (0.2-1.0) Aspartate Amino Transf (AST/SGOT) 29 U/L (15-37) Alanine Aminotransferase (ALT/SGPT) 21 U/L (14-59) Alkaline Phosphatase 254 U/L (46-116) Total Protein 5.6 g/dL (6.4-8.2) Albumin 2.4 g/dL (3.4-5.0) Albumin/Globulin Ratio 0.8 (1.0-1.7) Laboratory Tests Test 06/09/17 04:30 White Blood Count 10.0 x10^3/uL (4.0-11.0) Red Blood Count 3.27 x10^6/uL (3.50-5.40) Hemoglobin 9.9 g/dL (12.0-15.5) Hematocrit 29.8 % (36.0-47.0) Mean Corpuscular Volume 91 fL (79-100) Mean Corpuscular Hemoglobin 30 pg (25-35) Mean Corpuscular Hemoglobin Concent 33 g/dL (31-37) Red Cell Distribution Width 14.1 % (11.5-14.5) Platelet Count 195 x10^3/uL (140-400) Neutrophils (%) (Auto) 81 % (31-73) Lymphocytes (%) (Auto) 9 % (24-48) Monocytes (%) (Auto) 7 % (0-9) Eosinophils (%) (Auto) 3 % (0-3) Basophils (%) (Auto) 0 % (0-3) Neutrophils # (Auto) 8.1 x10^3uL (1.8-7.7) Lymphocytes # (Auto) 0.9 x10^3/uL (1.0-4.8) Monocytes # (Auto) 0.7 x10^3/uL (0.0-1.1) Eosinophils # (Auto) 0.3 x10^3/uL (0.0-0.7) Basophils # (Auto) 0.0 x10^3/uL (0.0-0.2) Sodium Level 143 mmol/L (136-145) Potassium Level 3.4 mmol/L (3.5-5.1) Chloride Level 109 mmol/L (98-107) Carbon Dioxide Level 26 mmol/L (21-32) Anion Gap 8 (6-14) Blood Urea Nitrogen 11 mg/dL (7-20) Creatinine 0.9 mg/dL (0.6-1.0) Estimated GFR (Cockcroft-Gault) 60.9 BUN/Creatinine Ratio 12 (6-20) Glucose Level 119 mg/dL (70-99) Calcium Level 8.1 mg/dL (8.5-10.1) Total Bilirubin 0.3 mg/dL (0.2-1.0) Aspartate Amino Transf (AST/SGOT) 29 U/L (15-37) Alanine Aminotransferase (ALT/SGPT) 21 U/L (14-59) Alkaline Phosphatase 254 U/L (46-116) Total Protein 5.6 g/dL (6.4-8.2) Albumin 2.4 g/dL (3.4-5.0) Albumin/Globulin Ratio 0.8 (1.0-1.7) Medications Current Medications Sodium Chloride 1,000 ml @ 75 mls/hr [id number] IV Last administered on 02:47; Start 06/05/17 at 04:00; Stop 06/07/17 at 08:59; Status DC Fentanyl Citrate (Fentanyl 2ml Vial) 50 mcg PRN Q2HR PRN IV SEVERE PAIN Last administered on 06/06/17 02:41; Start 06/05/17 at 04:00 Ondansetron HCl (Zofran) 4 mg PRN Q6HRS PRN IV NAUSEA/VOMITING; Start 06/05/17 at 04:00 Ceftriaxone Sodium 1 gm/ Dextrose 50 ml @ 100 mls/hr Q24H IV ; Start 06/05/17 at 04:00; Status UNV Ceftriaxone Sodium (Rocephin) 1 gm Q24H IVP Last administered on 06/05/17 22: 11; Start 06/05/17 at 22:00; Stop 06/06/17 at 14:45; Status DC Aspirin (Ecotrin) 81 mg DAILY PO Last administered on 06/07/17 09:17; Start 06/05/17 at 11:00 Atorvastatin Calcium (Lipitor) 40 mg QHS PO Last administered on 06/08/17 20: 39; Start 06/05/17 at 21:00 Carisoprodol (Soma) 350 mg BID PO Last administered on 06/08/17 20:39; Start 06/05/17 at 11:00 Vitamin D (Vitamin D3) 1,000 unit DAILY PO Last administered on 06/08/17 10: 54; Start 06/05/17 at 11:00 Acetaminophen/ Hydrocodone Bitart (Lortab 7.5/325) 1 tab PRN Q6HRS PRN PO PAIN Last administered on 06/09/17 09:20; Start 06/05/17 at 10:15 Acetaminophen/ Hydrocodone Bitart (Lortab 5/325) 1 tab PRN Q6HRS PRN PO PAIN Last administered on 06/09/17 03:48; Start 06/05/17 at 10:15 Levothyroxine Sodium (Synthroid) 88 mcg DAILY07 PO Last administered on 06:17; Start 06/06/17 at 07:00 Pioglitazone HCl (Actos) 15 mg DAILY PO ; Start 06/05/17 at 11:30; Stop at 11:30; Status DC Lisinopril (Prinivil) 10 mg DAILY PO ; Start 06/05/17 at 11:00; Stop 06/05/17 at 12:05; Status DC Magnesium Citrate (Citroma) 296 ml 1X ONCE PO Last administered on 06/05/17 14:05; Start 06/05/17 at 10:30; Stop 06/05/17 at 10:31; Status DC Polyethylene Glycol (miraLAX PACKET) 17 gm DAILY PO Last administered on 09:00; Start 06/05/17 at 11:00 Metformin HCl (Glucophage) 850 mg DAILY PO ; Start 06/06/17 at 09:00; Stop 04/13 at 09:00; Status DC Lactobacillus Rhamnosus (Culturelle) 1 cap BID PO Last administered on 20:39; Start 06/05/17 at 21:00 Trazodone HCl (Desyrel) 50 mg QHS PO Last administered on 06/08/17 20:39; Start 06/06/17 at 21:00 Cefpodoxime Proxetil (Vantin) 100 mg BID PO Last administered on 06/08/17 20: 39; Start 06/06/17 at 21:00; Stop 06/13/17 at 09:01 Phenyleph/Shark Oil/Min Oil/Petrol (Preparation H) 1 allen TID PRN PRN RC RECTAL PAIN Last administered on 06/08/17 20:41; Start 06/06/17 at 18:30 Potassium Chloride/Sodium Chloride 1,000 ml @ 75 mls/hr 1X ONCE IV Last administered on 06/07/17 09:25; Start 06/07/17 at 09:00; Stop 06/07/17 at 22 :19; Status DC Potassium Chloride (Klor-Con) 40 meq 1X ONCE PO Last administered on 09:17; Start 06/07/17 at 09:00; Stop 06/07/17 at 09:04; Status DC Saliva Substitute (Biotene Moisturizing Mouth) 2 spray PRN Q15MIN PRN PO DRY MOUTH Last administered on 06/08/17 10:55; Start 06/07/17 at 09:15 Potassium Chloride (Klor-Con) 20 meq 1X ONCE PO Last administered on 14:21; Start 06/07/17 at 12:00; Stop 06/07/17 at 12:01; Status DC Sodium Monofluorophosphate (Fleet Adult) [address] Last administered on 06/07/17 15:22; Start 06/07/17 at 14:30; Stop 06/07/17 at 14:31; Status DC Bisacodyl (Dulcolax Supp) [address] ; Start 06/07/17 at 14:30; Stop at 14:31; Status DC Lidocaine/Sodium Bicarbonate (Buffered Lidocaine 1%) 20 ml STK-MED ONCE IJ ; Start 06/08/17 at 07:57; Stop 06/08/17 at 07:58; Status DC Midazolam HCl (Versed) 5 mg STK-MED ONCE .ROUTE ; Start 06/08/17 at 08:34; Stop 06/08/17 at 08:35; Status DC Fentanyl Citrate (Fentanyl 5ml Vial) 250 mcg STK-MED ONCE .ROUTE ; Start at 08:34; Stop 06/08/17 at 08:35; Status DC Cefazolin Sodium/ Dextrose 50 ml @ As Directed STK-MED ONCE IV ; Start at 08:51; Stop 06/08/17 at 08:52; Status DC Lidocaine/Sodium Bicarbonate (Buffered Lidocaine 1%) 5 ml 1X ONCE IJ Last administered on 06/08/17 09:42; Start 06/08/17 at 09:45; Stop 06/08/17 at 09 :46; Status DC Midazolam HCl (Versed) 4 mg 1X ONCE IV Last administered on 06/08/17 09:42; Start 06/08/17 at 09:45; Stop 06/08/17 at 09:46; Status DC Fentanyl Citrate (Fentanyl 5ml Vial) 200 mcg 1X ONCE IV Last administered on 06/08/17 09:43; Start 06/08/17 at 09:45; Stop 06/08/17 at 09:46; Status DC Cefazolin Sodium/ Dextrose 50 ml @ 100 mls/hr 1X ONCE IV Last administered on 06/08/17 08:23; Start 06/08/17 at 09:45; Stop 06/08/17 at 10:14; Status DC Magnesium Sulfate/ Dextrose 50 ml @ 25 mls/hr 1X ONCE IV Last administered on 06/08/17 13:16; Start 06/08/17 at 12:30; Stop 06/08/17 at 14:29; Status DC Active Scripts Active Reported Vitamin D3 (Cholecalciferol (Vitamin D3)) 1,000 Unit Tablet 1 Tab PO DAILY Soma (Carisoprodol) 350 Mg Tablet 1 Tab PO BID Quinapril Hcl 10 Mg Tablet 1 Tab PO DAILY Pioglitazone-Metformin 15-850 (Pioglitazone Hcl/Metformin Hcl) 1 Each Tablet 1 Each PO DAILY Levothyroxine Sodium 88 Mcg Tablet 1 Tab PO DAILY Hydrocodone-Apap 7.5-325 (Hydrocodone Bit/Acetaminophen) 1 Each Tablet 1 Tab PO PRN Q6HRS PRN [place] 5-325 Tablet (Acetaminophen/Hydrocodone Bitart) 1 Each Tablet 1 Tab PO PRN Q6HRS PRN Centrum Silver Tablet (Multivits-Min/Fa/Lycopene/Lut) 1 Each Tablet 1 Each PO Atorvastatin Calcium 40 Mg Tablet 1 Tab PO DAILY Aspir 81 (Aspirin) 81 Mg Tablet. 1 Tab PO DAILY Vitals/I & O Vital Sign - Last 24 Hours 06/08/17 06/08/17 06/08/17 06/08/17 13:01 15:00 18:02 19:00 Temp 98.4 99.9 98.4 99.9 Pulse 86 80 86 Resp 24 18 16 18 B/P (MAP) 124/64 (84) 117/66 (83) 159/69 (99) Pulse Ox 97 96 96 O2 Delivery Room Air Room Air Room Air Room Air 06/08/17 06/08/17 06/08/17 06/09/17 19:05 20:00 23:00 03:00 Temp 98.2 98.6 98.2 98.6 Pulse 101 86 Resp 16 18 18 B/P (MAP) 131/70 (90) 141/78 (99) Pulse Ox 93 96 O2 Delivery Room Air Room Air Room Air 06/09/17 06/09/17 06/09/17 06/09/17 03:48 04:48 07:00 09:20 Temp 99.9 99.9 Pulse 82 Resp 18 18 21 B/P (MAP) 125/56 (79) Pulse Ox 96 96 94 O2 Delivery Room Air Room Air Room Air Room Air 06/09/17 06/09/17 10:22 10:41 Temp 100.2 100.2 Pulse 85 Resp 20 B/P (MAP) 137/70 (92) Pulse Ox 97 O2 Delivery Room Air Room Air Intake and Output 06/08/17 06/08/17 06/09/17 15:00 23:00 07:00 Intake Total 210 ml Balance 210 ml NAJMA HINES MD Jun 09, 2017 12:20
[2017-06-09] MEDS: POTASSIUM CHLORIDE 20 MEQ TABLET.ER. PO SCH (15:10)
[2017-06-09] MEDS ORDERED: IOHEXOL 300 MG/ML 100ML VIAL. IV ONE (17:15)
[2017-06-09] MEDS ORDERED: IOHEXOL 240 MG/ML 50ML VIAL. PO ONE (17:15)
[2017-06-09] MEDS ORDERED: ACETAMINOPHEN 325 MG TABLET. PO PRN (17:15)
[2017-06-09] MEDS ORDERED: CONTRAST GIVEN MC PRN (17:30)
[2017-06-09 18:01] LABS: BASO % 1 % (0-3); EOS % 3 % (0-3); HEMATOCRIT 30.2 % (36.0-47.0); HEMOGLOBIN 10.2 g/dL (12.0-15.5); LYMPH # 0.8 x10^3/uL (1.0-4.8); LYMPH % 7 % (24-48); MEAN CORPUSCULAR HEMOGLOBIN 30 pg (25-35); MEAN CORPUSCULAR HGB CONC 34 g/dL (31-37); MEAN CORPUSCULAR VOLUME 90 fL (79-100); MONO % 8 % (0-9); NEUT % 82 % (31-73); PLATELET COUNT 199 x10^3/uL (140-400); RED BLOOD COUNT 3.35 x10^6/uL (3.50-5.40); RED CELL DISTRIBUTION WIDTH 13.5 % (11.5-14.5); WHITE BLOOD COUNT 10.6 x10^3/uL (4.0-11.0)
--- NOTE | 2017-06-09 20:24 | PDOC ---
PROGRESS NOTES Chief Complaint Chief Complaint pm note review Abd pain/constipation, acute ileus, resolving temp, observe Dehydration, vasomotor nephropathy, POA Acute Kidney injury improving, hypernatremia and hypokalemia resolved B/l sacral Fx with intractable pain DM II, HTN POST Vertebroplasty distended gallbladder , sono suggests no cholcystitis, gallstones, suspected incidental finding plan ua advance diet as tolerated try to decrease narcotic use, d/c iv fentanyl re-check serum lipase incentive spirometry blood cult x 2 id consult iv zoysn iv levaquin ct abd/pelvis tonight ua History of Present Illness History of Present Illness Pt seen and examined today at the bedside, daughter and family present during examination, questions and concerns addressed BUN and Creatinine improving, 90 and 1.7,on 06/06, 40 and 1.1 today had considered sacroplasty, cancelled, change IV fluid, hypernatremia, hypokalemia, Vitals Vitals Vital Signs Date Time Temp Pulse Resp B/P (MAP) Pulse Ox O2 Delivery O2 Flow Rate FiO2 06/09/17 15:00 101.3 104 20 143/70 (94) 96 Room Air 101.3 06/09/17 08:25 2.0 Physical Exam Physical Exam PROCEDURE: ABDOMEN COMPLETE Indication: Abnormal MRI, further evaluation of the gallbladder. Technique: Ultrasound abdomen complete was performed. Comparison is an MRI lumbar spine from yesterday. Findings: Visualized pancreas is unremarkable. There is atheromatous disease in the abdominal aorta without aneurysm. IVC is patent. Liver is normal in size and echogenicity. Gallbladder is distended. There is cholelithiasis but no gallbladder wall thickening or pericholecystic fluid. Common bile duct is within normal limits for age at 6 mm. There is increase in echogenicity of the kidneys which is nonspecific, but can be a finding of medical renal disease. The spleen is not enlarged. Impression: Cholelithiasis. No sonographic evidence of acute cholecystitis. If further workup is required, consider hepatobiliary scintigraphy with ejection fraction. DICTATED and SIGNED BY: HARLAN MUNGUIA MD DATE: 06/09/17826 Physical Exam Physical Exam Eyes: Scleral anicteric General: Alert, Oriented X3, Cooperative, mild distress Heart: Regular rate, Normal S1, Normal S2, Other (no gallops clicks or rubs) Lungs: Clear, Other (No wheezes or crackles) Abdomen: Normal bowel sounds, Soft, No tenderness Extremities: No cyanosis, No edema, Normal pulses Skin: No rashes, No significant lesion Eyes: Scleral anicteric General: Alert, Oriented X3, Cooperative, mild distress Heart: Regular rate, Normal S1, Normal S2, Other (no gallops clicks or rubs) Lungs: Clear, Other (No wheezes or crackles) Abdomen: Normal bowel sounds, Soft, No tenderness Extremities: No cyanosis, No edema, Normal pulses Skin: No rashes, No significant lesion Labs LABS Laboratory Tests Test 06/09/17 04:30 06/09/17 17:30 White Blood Count 10.0 x10^3/uL (4.0-11.0) 10.6 x10^3/uL (4.0-11.0) Red Blood Count 3.27 x10^6/uL (3.50-5.40) 3.35 x10^6/uL (3.50-5.40) Hemoglobin 9.9 g/dL (12.0-15.5) 10.2 g/dL (12.0-15.5) Hematocrit 29.8 % (36.0-47.0) 30.2 % (36.0-47.0) Mean Corpuscular Volume 91 fL (79-100) 90 fL (79-100) Mean Corpuscular Hemoglobin 30 pg (25-35) 30 pg (25-35) Mean Corpuscular Hemoglobin Concent 33 g/dL (31-37) 34 g/dL (31-37) Red Cell Distribution Width 14.1 % (11.5-14.5) 13.5 % (11.5-14.5) Platelet Count 195 x10^3/uL (140-400) 199 x10^3/uL (140-400) Neutrophils (%) (Auto) 81 % (31-73) 82 % (31-73) Lymphocytes (%) (Auto) 9 % (24-48) 7 % (24-48) Monocytes (%) (Auto) 7 % (0-9) 8 % (0-9) Eosinophils (%) (Auto) 3 % (0-3) 3 % (0-3) Basophils (%) (Auto) 0 % (0-3) 1 % (0-3) Neutrophils # (Auto) 8.1 x10^3uL (1.8-7.7) 8.7 x10^3uL (1.8-7.7) Lymphocytes # (Auto) 0.9 x10^3/uL (1.0-4.8) 0.8 x10^3/uL (1.0-4.8) Monocytes # (Auto) 0.7 x10^3/uL (0.0-1.1) 0.8 x10^3/uL (0.0-1.1) Eosinophils # (Auto) 0.3 x10^3/uL (0.0-0.7) 0.3 x10^3/uL (0.0-0.7) Basophils # (Auto) 0.0 x10^3/uL (0.0-0.2) 0.0 x10^3/uL (0.0-0.2) Sodium Level 143 mmol/L (136-145) Potassium Level 3.4 mmol/L (3.5-5.1) Chloride Level 109 mmol/L (98-107) Carbon Dioxide Level 26 mmol/L (21-32) Anion Gap 8 (6-14) Blood Urea Nitrogen 11 mg/dL (7-20) Creatinine 0.9 mg/dL (0.6-1.0) Estimated GFR (Cockcroft-Gault) 60.9 BUN/Creatinine Ratio 12 (6-20) Glucose Level 119 mg/dL (70-99) Calcium Level 8.1 mg/dL (8.5-10.1) Total Bilirubin 0.3 mg/dL (0.2-1.0) Aspartate Amino Transf (AST/SGOT) 29 U/L (15-37) Alanine Aminotransferase (ALT/SGPT) 21 U/L (14-59) Alkaline Phosphatase 254 U/L (46-116) Total Protein 5.6 g/dL (6.4-8.2) Albumin 2.4 g/dL (3.4-5.0) Albumin/Globulin Ratio 0.8 (1.0-1.7) Lipase 348 U/L (73-393) Lactic Acid Level 0.9 mmol/L (0.4-2.0) Comment Review of Relevant I have reviewed the following items mikey (where applicable) has been applied. Labs Laboratory Tests Test 06/07/17 21:14 06/08/17 03:40 06/09/17 04:30 06/09/17 17:30 Glucose (Fingerstick) 118 mg/dL (70-99) White Blood Count 7.6 x10^3/uL (4.0-11.0) 10.0 x10^3/uL (4.0-11.0) 10.6 x10^3/uL (4.0-11.0) Red Blood Count 2.96 x10^6/uL (3.50-5.40) 3.27 x10^6/uL (3.50-5.40) 3.35 x10^6/uL (3.50-5.40) Hemoglobin 9.1 g/dL (12.0-15.5) 9.9 g/dL (12.0-15.5) 10.2 g/dL (12.0-15.5) Hematocrit 27.1 % (36.0-47.0) 29.8 % (36.0-47.0) 30.2 % (36.0-47.0) Mean Corpuscular Volume 92 fL (79-100) 91 fL (79-100) 90 fL (79-100) Mean Corpuscular Hemoglobin 31 pg (25-35) 30 pg (25-35) 30 pg (25-35) Mean Corpuscular Hemoglobin Concent 34 g/dL (31-37) 33 g/dL (31-37) 34 g/dL (31-37) Red Cell Distribution Width 14.3 % (11.5-14.5) 14.1 % (11.5-14.5) 13.5 % (11.5-14.5) Platelet Count 190 x10^3/uL (140-400) 195 x10^3/uL (140-400) 199 x10^3/uL (140-400) Neutrophils (%) (Auto) 72 % (31-73) 81 % (31-73) 82 % (31-73) Lymphocytes (%) (Auto) 14 % (24-48) 9 % (24-48) 7 % (24-48) Monocytes (%) (Auto) 9 % (0-9) 7 % (0-9) 8 % (0-9) Eosinophils (%) (Auto) 5 % (0-3) 3 % (0-3) 3 % (0-3) Basophils (%) (Auto) 1 % (0-3) 0 % (0-3) 1 % (0-3) Neutrophils # (Auto) 5.4 x10^3uL (1.8-7.7) 8.1 x10^3uL (1.8-7.7) 8.7 x10^3uL (1.8-7.7) Lymphocytes # (Auto) 1.0 x10^3/uL (1.0-4.8) 0.9 x10^3/uL (1.0-4.8) 0.8 x10^3/uL (1.0-4.8) Monocytes # (Auto) 0.7 x10^3/uL (0.0-1.1) 0.7 x10^3/uL (0.0-1.1) 0.8 x10^3/uL (0.0-1.1) Eosinophils # (Auto) 0.4 x10^3/uL (0.0-0.7) 0.3 x10^3/uL (0.0-0.7) 0.3 x10^3/uL (0.0-0.7) Basophils # (Auto) 0.1 x10^3/uL (0.0-0.2) 0.0 x10^3/uL (0.0-0.2) 0.0 x10^3/uL (0.0-0.2) Sodium Level 146 mmol/L (136-145) 143 mmol/L (136-145) Potassium Level 4.0 mmol/L (3.5-5.1) 3.4 mmol/L (3.5-5.1) Chloride Level 114 mmol/L (98-107) 109 mmol/L (98-107) Carbon Dioxide Level 24 mmol/L (21-32) 26 mmol/L (21-32) Anion Gap 8 (6-14) 8 (6-14) Blood Urea Nitrogen 22 mg/dL (7-20) 11 mg/dL (7-20) Creatinine 0.9 mg/dL (0.6-1.0) 0.9 mg/dL (0.6-1.0) Estimated GFR (Cockcroft-Gault) 60.9 60.9 Glucose Level 105 mg/dL (70-99) 119 mg/dL (70-99) Calcium Level 7.9 mg/dL (8.5-10.1) 8.1 mg/dL (8.5-10.1) Magnesium Level 1.4 mg/dL (1.8-2.4) Gamma Glutamyl Transpeptidase 17 U/L (5-55) BUN/Creatinine Ratio 12 (6-20) Total Bilirubin 0.3 mg/dL (0.2-1.0) Aspartate Amino Transf (AST/SGOT) 29 U/L (15-37) Alanine Aminotransferase (ALT/SGPT) 21 U/L (14-59) Alkaline Phosphatase 254 U/L (46-116) Total Protein 5.6 g/dL (6.4-8.2) Albumin 2.4 g/dL (3.4-5.0) Albumin/Globulin Ratio 0.8 (1.0-1.7) Lipase 348 U/L (73-393) Lactic Acid Level 0.9 mmol/L (0.4-2.0) Laboratory Tests Test 06/09/17 04:30 06/09/17 17:30 White Blood Count 10.0 x10^3/uL (4.0-11.0) 10.6 x10^3/uL (4.0-11.0) Red Blood Count 3.27 x10^6/uL (3.50-5.40) 3.35 x10^6/uL (3.50-5.40) Hemoglobin 9.9 g/dL (12.0-15.5) 10.2 g/dL (12.0-15.5) Hematocrit 29.8 % (36.0-47.0) 30.2 % (36.0-47.0) Mean Corpuscular Volume 91 fL (79-100) 90 fL (79-100) Mean Corpuscular Hemoglobin 30 pg (25-35) 30 pg (25-35) Mean Corpuscular Hemoglobin Concent 33 g/dL (31-37) 34 g/dL (31-37) Red Cell Distribution Width 14.1 % (11.5-14.5) 13.5 % (11.5-14.5) Platelet Count 195 x10^3/uL (140-400) 199 x10^3/uL (140-400) Neutrophils (%) (Auto) 81 % (31-73) 82 % (31-73) Lymphocytes (%) (Auto) 9 % (24-48) 7 % (24-48) Monocytes (%) (Auto) 7 % (0-9) 8 % (0-9) Eosinophils (%) (Auto) 3 % (0-3) 3 % (0-3) Basophils (%) (Auto) 0 % (0-3) 1 % (0-3) Neutrophils # (Auto) 8.1 x10^3uL (1.8-7.7) 8.7 x10^3uL (1.8-7.7) Lymphocytes # (Auto) 0.9 x10^3/uL (1.0-4.8) 0.8 x10^3/uL (1.0-4.8) Monocytes # (Auto) 0.7 x10^3/uL (0.0-1.1) 0.8 x10^3/uL (0.0-1.1) Eosinophils # (Auto) 0.3 x10^3/uL (0.0-0.7) 0.3 x10^3/uL (0.0-0.7) Basophils # (Auto) 0.0 x10^3/uL (0.0-0.2) 0.0 x10^3/uL (0.0-0.2) Sodium Level 143 mmol/L (136-145) Potassium Level 3.4 mmol/L (3.5-5.1) Chloride Level 109 mmol/L (98-107) Carbon Dioxide Level 26 mmol/L (21-32) Anion Gap 8 (6-14) Blood Urea Nitrogen 11 mg/dL (7-20) Creatinine 0.9 mg/dL (0.6-1.0) Estimated GFR (Cockcroft-Gault) 60.9 BUN/Creatinine Ratio 12 (6-20) Glucose Level 119 mg/dL (70-99) Calcium Level 8.1 mg/dL (8.5-10.1) Total Bilirubin 0.3 mg/dL (0.2-1.0) Aspartate Amino Transf (AST/SGOT) 29 U/L (15-37) Alanine Aminotransferase (ALT/SGPT) 21 U/L (14-59) Alkaline Phosphatase 254 U/L (46-116) Total Protein 5.6 g/dL (6.4-8.2) Albumin 2.4 g/dL (3.4-5.0) Albumin/Globulin Ratio 0.8 (1.0-1.7) Lipase 348 U/L (73-393) Lactic Acid Level 0.9 mmol/L (0.4-2.0) Medications Current Medications Sodium Chloride 1,000 ml @ 75 mls/hr [id number] IV Last administered on 02:47; Start 06/05/17 at 04:00; Stop 06/07/17 at 08:59; Status DC Fentanyl Citrate (Fentanyl 2ml Vial) 50 mcg PRN Q2HR PRN IV SEVERE PAIN Last administered on 06/06/17 02:41; Start 06/05/17 at 04:00; Stop 06/09/17 at 12: 29; Status DC Ondansetron HCl (Zofran) 4 mg PRN Q6HRS PRN IV NAUSEA/VOMITING; Start 06/05/17 at 04:00 Ceftriaxone Sodium 1 gm/ Dextrose 50 ml @ 100 mls/hr Q24H IV ; Start 06/05/17 at 04:00; Status UNV Ceftriaxone Sodium (Rocephin) 1 gm Q24H IVP Last administered on 06/05/17 22: 11; Start 06/05/17 at 22:00; Stop 06/06/17 at 14:45; Status DC Aspirin (Ecotrin) 81 mg DAILY PO Last administered on 06/07/17 09:17; Start 06/05/17 at 11:00 Atorvastatin Calcium (Lipitor) 40 mg QHS PO Last administered on 06/08/17 20: 39; Start 06/05/17 at 21:00 Carisoprodol (Soma) 350 mg BID PO Last administered on 06/08/17 20:39; Start 06/05/17 at 11:00 Vitamin D (Vitamin D3) 1,000 unit DAILY PO Last administered on 06/08/17 10: 54; Start 06/05/17 at 11:00 Acetaminophen/ Hydrocodone Bitart (Lortab 7.5/325) 1 tab PRN Q6HRS PRN PO PAIN Last administered on 06/09/17 09:20; Start 06/05/17 at 10:15 Acetaminophen/ Hydrocodone Bitart (Lortab 5/325) 1 tab PRN Q6HRS PRN PO PAIN Last administered on 06/09/17 03:48; Start 06/05/17 at 10:15 Levothyroxine Sodium (Synthroid) 88 mcg DAILY07 PO Last administered on 06:17; Start 06/06/17 at 07:00 Pioglitazone HCl (Actos) 15 mg DAILY PO ; Start 06/05/17 at 11:30; Stop at 11:30; Status DC Lisinopril (Prinivil) 10 mg DAILY PO ; Start 06/05/17 at 11:00; Stop 06/05/17 at 12:05; Status DC Magnesium Citrate (Citroma) 296 ml 1X ONCE PO Last administered on 06/05/17 14:05; Start 06/05/17 at 10:30; Stop 06/05/17 at 10:31; Status DC Polyethylene Glycol (miraLAX PACKET) 17 gm DAILY PO Last administered on 09:00; Start 06/05/17 at 11:00 Metformin HCl (Glucophage) 850 mg DAILY PO ; Start 06/06/17 at 09:00; Stop 04/13 at 09:00; Status DC Lactobacillus Rhamnosus (Culturelle) 1 cap BID PO Last administered on 20:39; Start 06/05/17 at 21:00 Trazodone HCl (Desyrel) 50 mg QHS PO Last administered on 06/08/17 20:39; Start 06/06/17 at 21:00 Cefpodoxime Proxetil (Vantin) 100 mg BID PO Last administered on 06/08/17 20: 39; Start 06/06/17 at 21:00; Stop 06/13/17 at 09:01 Phenyleph/Shark Oil/Min Oil/Petrol (Preparation H) 1 allen TID PRN PRN RC RECTAL PAIN Last administered on 06/08/17 20:41; Start 06/06/17 at 18:30 Potassium Chloride/Sodium Chloride 1,000 ml @ 75 mls/hr 1X ONCE IV Last administered on 06/07/17 09:25; Start 06/07/17 at 09:00; Stop 06/07/17 at 22 :19; Status DC Potassium Chloride (Klor-Con) 40 meq 1X ONCE PO Last administered on 09:17; Start 06/07/17 at 09:00; Stop 06/07/17 at 09:04; Status DC Saliva Substitute (Biotene Moisturizing Mouth) 2 spray PRN Q15MIN PRN PO DRY MOUTH Last administered on 06/08/17 10:55; Start 06/07/17 at 09:15 Potassium Chloride (Klor-Con) 20 meq 1X ONCE PO Last administered on 14:21; Start 06/07/17 at 12:00; Stop 06/07/17 at 12:01; Status DC Sodium Monofluorophosphate (Fleet Adult) 133 ml 1X ONCE MI Last administered on 06/07/17 15:22; Start 06/07/17 at 14:30; Stop 06/07/17 at 14:31; Status DC Bisacodyl (Dulcolax Supp) 10 mg 1X ONCE MI ; Start 06/07/17 at 14:30; Stop at 14:31; Status DC Lidocaine/Sodium Bicarbonate (Buffered Lidocaine 1%) 20 ml STK-MED ONCE IJ ; Start 06/08/17 at 07:57; Stop 06/08/17 at 07:58; Status DC Midazolam HCl (Versed) 5 mg STK-MED ONCE .ROUTE ; Start 06/08/17 at 08:34; Stop 06/08/17 at 08:35; Status DC Fentanyl Citrate (Fentanyl 5ml Vial) 250 mcg STK-MED ONCE .ROUTE ; Start at 08:34; Stop 06/08/17 at 08:35; Status DC Cefazolin Sodium/ Dextrose 50 ml @ As Directed STK-MED ONCE IV ; Start at 08:51; Stop 06/08/17 at 08:52; Status DC Lidocaine/Sodium Bicarbonate (Buffered Lidocaine 1%) 5 ml 1X ONCE IJ Last administered on 06/08/17 09:42; Start 06/08/17 at 09:45; Stop 06/08/17 at 09 :46; Status DC Midazolam HCl (Versed) 4 mg 1X ONCE IV Last administered on 06/08/17 09:42; Start 06/08/17 at 09:45; Stop 06/08/17 at 09:46; Status DC Fentanyl Citrate (Fentanyl 5ml Vial) 200 mcg 1X ONCE IV Last administered on 06/08/17 09:43; Start 06/08/17 at 09:45; Stop 06/08/17 at 09:46; Status DC Cefazolin Sodium/ Dextrose 50 ml @ 100 mls/hr 1X ONCE IV Last administered on 06/08/17 08:23; Start 06/08/17 at 09:45; Stop 06/08/17 at 10:14; Status DC Magnesium Sulfate/ Dextrose 50 ml @ 25 mls/hr 1X ONCE IV Last administered on 06/08/17 13:16; Start 06/08/17 at 12:30; Stop 06/08/17 at 14:29; Status DC Potassium Chloride (Klor-Con) 20 meq [id number] PO Last administered on 15:10; Start 06/09/17 at 14:00 Piperacillin Sod/ Tazobactam Sod 3.375 gm/Dextrose 50 ml @ 100 mls/hr Q6HRS IV ; Start 06/09/17 at 18:00 Acetaminophen (Tylenol) 650 mg PRN Q6HRS PRN PO FEVER Last administered on 18:10; Start 06/09/17 at 17:15 Iohexol (Omnipaque 240 Mg/ml) 30 ml 1X ONCE PO ; Start 06/09/17 at 17:15; Stop 06/09/17 at 17:17; Status DC Iohexol (Omnipaque 300 Mg/ml) 75 ml 1X ONCE IV ; Start 06/09/17 at 17:15; Stop 06/09/17 at 17:17; Status DC Info (Do NOT chart on this entry -- for MONITORING) 1 each PRN DAILY PRN MC SEE COMMENTS; Start 06/09/17 at 17:30; Stop 06/11/17 at 17:29 Active Scripts Active Reported Vitamin D3 (Cholecalciferol (Vitamin D3)) 1,000 Unit Tablet 1 Tab PO DAILY Soma (Carisoprodol) 350 Mg Tablet 1 Tab PO BID Quinapril Hcl 10 Mg Tablet 1 Tab PO DAILY Pioglitazone-Metformin 15-850 (Pioglitazone Hcl/Metformin Hcl) 1 Each Tablet 1 Each PO DAILY Levothyroxine Sodium 88 Mcg Tablet 1 Tab PO DAILY Hydrocodone-Apap 7.5-325 (Hydrocodone Bit/Acetaminophen) 1 Each Tablet 1 Tab PO PRN Q6HRS PRN [place] 5-325 Tablet (Acetaminophen/Hydrocodone Bitart) 1 Each Tablet 1 Tab PO PRN Q6HRS PRN Centrum Silver Tablet (Multivits-Min/Fa/Lycopene/Lut) 1 Each Tablet 1 Each PO Atorvastatin Calcium 40 Mg Tablet 1 Tab PO DAILY Aspir 81 (Aspirin) 81 Mg Tablet. 1 Tab PO DAILY Vitals/I & O Vital Sign - Last 24 Hours 06/08/17 06/09/17 06/09/17 06/09/17 23:00 03:00 03:48 04:48 Temp 98.2 98.6 98.2 98.6 Pulse 101 86 Resp 18 18 18 18 B/P (MAP) 131/70 (90) 141/78 (99) Pulse Ox 93 96 96 96 O2 Delivery Room Air Room Air Room Air Room Air 06/09/17 06/09/17 06/09/17 06/09/17 07:00 08:25 09:20 10:22 Temp 99.9 99.9 Pulse 82 Resp 21 B/P (MAP) 125/56 (79) Pulse Ox 94 O2 Delivery Room Air Room Air Room Air Room Air O2 Flow Rate 2.0 06/09/17 06/09/17 10:41 15:00 Temp 100.2 101.3 100.2 101.3 Pulse 85 104 Resp 20 20 B/P (MAP) 137/70 (92) 143/70 (94) Pulse Ox 97 96 O2 Delivery Room Air Room Air Intake and Output 06/08/17 06/08/17 06/09/17 15:00 23:00 07:00 Intake Total 210 ml Balance 210 ml NAJMA HINES MD Jun 09, 2017 20:24
[2017-06-09] MEDS: PIPERACILLIN/TAZOBACTAM 3.375 GM in IV DEXTROSE 5% 50 ML IV SCH ×2 (20:34→23:52)
[2017-06-09] MEDS: traZODone 50 MG TABLET. PO SCH (21:21)
[2017-06-09] MEDS: ATORVASTATIN CALCIUM 40 MG TABLET. PO SCH (21:22)
[2017-06-10 03:52] VITALS: BP 128/62
[2017-06-10] MEDS: HYDROcodone/APAP 7.5/325MG 1 TAB TABLET PO PRN ×4 (03:59→22:23)
[2017-06-10 04:32] LABS: BASO % 0 % (0-3); EOS % 3 % (0-3); HEMOGLOBIN 10.2 g/dL (12.0-15.5); LYMPH # 0.8 x10^3/uL (1.0-4.8); LYMPH % 8 % (24-48); MEAN CORPUSCULAR HEMOGLOBIN 30 pg (25-35); MEAN CORPUSCULAR HGB CONC 33 g/dL (31-37); MEAN CORPUSCULAR VOLUME 92 fL (79-100); MONO % 9 % (0-9); NEUT % 80 % (31-73); PLATELET COUNT 185 x10^3/uL (140-400); RED BLOOD COUNT 3.36 x10^6/uL (3.50-5.40); WHITE BLOOD COUNT 9.2 x10^3/uL (4.0-11.0)
[2017-06-10 05:21] LABS: CALCIUM 7.7 mg/dL (8.5-10.1); GFR 53.9; POTASSIUM 3.4 mmol/L (3.5-5.1)
[2017-06-10] MEDS: PIPERACILLIN/TAZOBACTAM 3.375 GM in IV DEXTROSE 5% 50 ML IV SCH ×2 (05:42→12:54)
[2017-06-10 07:00] VITALS: BP 148/72
[2017-06-10] MEDS: CARISOPRODOL 350 MG TABLET PO SCH ×2 (08:23→21:56)
[2017-06-10] MEDS: LACTOBACILLUS RHAMNOSUS GG 1 CAPSULE. PO SCH ×2 (08:23→21:56)
[2017-06-10] MEDS: CEFPODOXIME PROXETIL 100 MG TABLET. PO SCH (08:23)
[2017-06-10] MEDS: LEVOTHYROXINE 88 MCG TABLET PO SCH (08:24)
[2017-06-10] MEDS: ASPIRIN ENTERIC COATED 81 MG TABLET.DR. PO SCH (08:24)
[2017-06-10] MEDS: POTASSIUM CHLORIDE 20 MEQ TABLET.ER. PO SCH (08:24)
[2017-06-10] MEDS: CHOLECALCIFEROL (VITAMIN D3) 1,000 UNIT TABLET PO SCH (08:24)
[2017-06-10] MEDS: POLYETHYLENE GLYCOL 3350 17 GM PACKET. PO SCH (08:29)
--- NOTE | 2017-06-10 09:19 | RAD ---
CT of the abdomen and pelvis without contrast, 06/09/2017: History: Fever and nausea No IV contrast was administered for this study as requested. Oral contrast material was given for GI tract opacification. Coronary artery calcifications are noted. There is a trace amount of pleural fluid in the posterior gutter on the left. The unopacified liver is unremarkable. There is a faint radiopacity along the posterior wall of the gallbladder compatible with the patient's known cholelithiasis. The gallbladder is at the upper limits of normal in size. No pericholecystic edema is seen. No pancreatic abnormality is detected. The spleen is of normal size. There are faint medullary calcifications in both kidneys. There is mild bilateral renal scarring with mild perinephric edema and/or scarring. The kidneys show no evidence of obstruction. No adrenal abnormality is detected. Moderate aortic calcific plaquing is present without evidence of aneurysm. No abdominal or pelvic adenopathy is seen. The uterus is of normal size. The bowel loops are not dilated. Several small sigmoid diverticula are noted. The appendix is visualized and shows no abnormality. No free air or significant free intraperitoneal fluid is seen. The left inguinal ring is dilated. It contains fat and spermatic cord structures. No bowel herniation is evident. There is a small amount of presacral fluid, also evident on the MR study of 06/07/2017. This is apparently related to the patient's known sacral fracture. Cement related to a recent sacroplasty procedure is noted in the sacrum bilaterally. IMPRESSION: 1. Cholelithiasis. 2. Bilateral nephrocalcinosis. 3. Minimal sigmoid diverticulosis. 4. Unchanged small collection of presacral fluid related to the patient's recent sacral fracture. 5. Fat-containing left inguinal hernia. PQRS Compliance Statement: One or more of the following individualized dose reduction techniques were utilized for this examination: 1. Automated exposure control 2. Adjustment of the mA and/or kV according to patient size 3. Use of iterative reconstruction technique
--- NOTE | 2017-06-10 10:43 | PDOC ---
Infectious Disease Note Vital Sign Vital Signs Vital Signs Date Time Temp Pulse Resp B/P (MAP) Pulse Ox O2 Delivery O2 Flow Rate FiO2 06/10/17 09:10 94 Room Air 94.0 06/10/17 07:00 99.1 83 18 148/72 (97) 99.1 Labs Lab Laboratory Tests Test 06/09/17 17:30 06/10/17 03:55 06/10/17 07:34 White Blood Count 10.6 x10^3/uL (4.0-11.0) 9.2 x10^3/uL (4.0-11.0) Red Blood Count 3.35 x10^6/uL (3.50-5.40) 3.36 x10^6/uL (3.50-5.40) Hemoglobin 10.2 g/dL (12.0-15.5) 10.2 g/dL (12.0-15.5) Hematocrit 30.2 % (36.0-47.0) 31.0 % (36.0-47.0) Mean Corpuscular Volume 90 fL (79-100) 92 fL (79-100) Mean Corpuscular Hemoglobin 30 pg (25-35) 30 pg (25-35) Mean Corpuscular Hemoglobin Concent 34 g/dL (31-37) 33 g/dL (31-37) Red Cell Distribution Width 13.5 % (11.5-14.5) 14.0 % (11.5-14.5) Platelet Count 199 x10^3/uL (140-400) 185 x10^3/uL (140-400) Neutrophils (%) (Auto) 82 % (31-73) 80 % (31-73) Lymphocytes (%) (Auto) 7 % (24-48) 8 % (24-48) Monocytes (%) (Auto) 8 % (0-9) 9 % (0-9) Eosinophils (%) (Auto) 3 % (0-3) 3 % (0-3) Basophils (%) (Auto) 1 % (0-3) 0 % (0-3) Neutrophils # (Auto) 8.7 x10^3uL (1.8-7.7) 7.3 x10^3uL (1.8-7.7) Lymphocytes # (Auto) 0.8 x10^3/uL (1.0-4.8) 0.8 x10^3/uL (1.0-4.8) Monocytes # (Auto) 0.8 x10^3/uL (0.0-1.1) 0.8 x10^3/uL (0.0-1.1) Eosinophils # (Auto) 0.3 x10^3/uL (0.0-0.7) 0.2 x10^3/uL (0.0-0.7) Basophils # (Auto) 0.0 x10^3/uL (0.0-0.2) 0.0 x10^3/uL (0.0-0.2) Lactic Acid Level 0.9 mmol/L (0.4-2.0) Sodium Level 142 mmol/L (136-145) Potassium Level 3.4 mmol/L (3.5-5.1) Chloride Level 108 mmol/L (98-107) Carbon Dioxide Level 22 mmol/L (21-32) Anion Gap 12 (6-14) Blood Urea Nitrogen 11 mg/dL (7-20) Creatinine 1.0 mg/dL (0.6-1.0) Estimated GFR (Cockcroft-Gault) 53.9 Glucose Level 133 mg/dL (70-99) Calcium Level 7.7 mg/dL (8.5-10.1) Glucose (Fingerstick) 134 mg/dL (70-99) Objective Assessment Fever, ? post procedure atelectasis, vs urine, u/a not done S/P Vertebroplasty for sacral fracture Noel hip pain/bursitis DM HTN Plan Plan of Care straight cath u/a with c and s if indicated cont zosyn, d/c levaquin and vantin check cultures supportive care pt/ot MIGUELINA LEA MD Jun 10, 2017 10:43
[2017-06-10 11:00] VITALS: BP 117/57
--- NOTE | 2017-06-10 11:15 | PDOC ---
PROGRESS NOTES Chief Complaint Chief Complaint pm note review Abd pain/constipation, acute ileus, resolving temp, observe Dehydration, vasomotor nephropathy, POA Acute Kidney injury improving, hypernatremia and hypokalemia resolved B/l sacral Fx with intractable pain DM II, HTN POST Vertebroplasty distended gallbladder , sono suggests no cholcystitis, gallstones, suspected incidental finding plan ua advance diet as tolerated try to decrease narcotic use, d/c iv fentanyl re-check serum lipase incentive spirometry blood cult x 2 id consult iv zoysn d/c iv levaquin ct abd/pelvis ok ua History of Present Illness History of Present Illness Pt seen and examined today at the bedside, daughter and family present during examination, questions and concerns addressed BUN and Creatinine improving, 90 and 1.7,on 06/06, 40 and 1.1 today had considered sacroplasty, cancelled, change IV fluid, hypernatremia, hypokalemia, Vitals Vitals Vital Signs Date Time Temp Pulse Resp B/P (MAP) Pulse Ox O2 Delivery O2 Flow Rate FiO2 06/10/17 09:10 94 Room Air 94.0 06/10/17 07:00 99.1 83 18 148/72 (97) 99.1 Physical Exam Physical Exam PROCEDURE: ABDOMEN COMPLETE Indication: Abnormal MRI, further evaluation of the gallbladder. Technique: Ultrasound abdomen complete was performed. Comparison is an MRI lumbar spine from yesterday. Findings: Visualized pancreas is unremarkable. There is atheromatous disease in the abdominal aorta without aneurysm. IVC is patent. Liver is normal in size and echogenicity. Gallbladder is distended. There is cholelithiasis but no gallbladder wall thickening or pericholecystic fluid. Common bile duct is within normal limits for age at 6 mm. There is increase in echogenicity of the kidneys which is nonspecific, but can be a finding of medical renal disease. The spleen is not enlarged. Impression: Cholelithiasis. No sonographic evidence of acute cholecystitis. If further workup is required, consider hepatobiliary scintigraphy with ejection fraction. DICTATED and SIGNED BY: HARLAN MUNGUIA MD DATE: 06/09/17 0827 Physical Exam Physical Exam Eyes: Scleral anicteric General: Alert, Oriented X3, Cooperative, mild distress Heart: Regular rate, Normal S1, Normal S2, Other (no gallops clicks or rubs) Lungs: Clear, Other (No wheezes or crackles) Abdomen: Normal bowel sounds, Soft, No tenderness Extremities: No cyanosis, No edema, Normal pulses Skin: No rashes, No significant lesion Eyes: Scleral anicteric General: Alert, Oriented X3, Cooperative, mild distress Heart: Regular rate, Normal S1, Normal S2, Other (no gallops clicks or rubs) Lungs: Clear, Other (No wheezes or crackles) Abdomen: Normal bowel sounds, Soft, No tenderness Extremities: No cyanosis, No edema, Normal pulses Skin: No rashes, No significant lesion Labs LABS Laboratory Tests Test 06/09/17 17:30 06/10/17 03:55 06/10/17 07:34 White Blood Count 10.6 x10^3/uL (4.0-11.0) 9.2 x10^3/uL (4.0-11.0) Red Blood Count 3.35 x10^6/uL (3.50-5.40) 3.36 x10^6/uL (3.50-5.40) Hemoglobin 10.2 g/dL (12.0-15.5) 10.2 g/dL (12.0-15.5) Hematocrit 30.2 % (36.0-47.0) 31.0 % (36.0-47.0) Mean Corpuscular Volume 90 fL (79-100) 92 fL (79-100) Mean Corpuscular Hemoglobin 30 pg (25-35) 30 pg (25-35) Mean Corpuscular Hemoglobin Concent 34 g/dL (31-37) 33 g/dL (31-37) Red Cell Distribution Width 13.5 % (11.5-14.5) 14.0 % (11.5-14.5) Platelet Count 199 x10^3/uL (140-400) 185 x10^3/uL (140-400) Neutrophils (%) (Auto) 82 % (31-73) 80 % (31-73) Lymphocytes (%) (Auto) 7 % (24-48) 8 % (24-48) Monocytes (%) (Auto) 8 % (0-9) 9 % (0-9) Eosinophils (%) (Auto) 3 % (0-3) 3 % (0-3) Basophils (%) (Auto) 1 % (0-3) 0 % (0-3) Neutrophils # (Auto) 8.7 x10^3uL (1.8-7.7) 7.3 x10^3uL (1.8-7.7) Lymphocytes # (Auto) 0.8 x10^3/uL (1.0-4.8) 0.8 x10^3/uL (1.0-4.8) Monocytes # (Auto) 0.8 x10^3/uL (0.0-1.1) 0.8 x10^3/uL (0.0-1.1) Eosinophils # (Auto) 0.3 x10^3/uL (0.0-0.7) 0.2 x10^3/uL (0.0-0.7) Basophils # (Auto) 0.0 x10^3/uL (0.0-0.2) 0.0 x10^3/uL (0.0-0.2) Lactic Acid Level 0.9 mmol/L (0.4-2.0) Sodium Level 142 mmol/L (136-145) Potassium Level 3.4 mmol/L (3.5-5.1) Chloride Level 108 mmol/L (98-107) Carbon Dioxide Level 22 mmol/L (21-32) Anion Gap 12 (6-14) Blood Urea Nitrogen 11 mg/dL (7-20) Creatinine 1.0 mg/dL (0.6-1.0) Estimated GFR (Cockcroft-Gault) 53.9 Glucose Level 133 mg/dL (70-99) Calcium Level 7.7 mg/dL (8.5-10.1) Glucose (Fingerstick) 134 mg/dL (70-99) Assessment and Plan Assessmemt and Plan Abd pain/constipation, acute ileus, resolving temp, observe Dehydration, vasomotor nephropathy, POA Acute Kidney injury improving, hypernatremia and hypokalemia resolved B/l sacral Fx with intractable pain DM II, HTN POST Vertebroplasty distended gallbladder , sono suggests no cholcystitis, gallstones, suspected incidental finding plan ua advance diet as tolerated try to decrease narcotic use, d/c iv fentanyl re-check serum lipase incentive spirometry blood cult x 2 id consult iv zoysn d/c iv levaquin ct abd/pelvis ok ua Problems: Comment Review of Relevant I have reviewed the following items mikey (where applicable) has been applied. Labs Laboratory Tests Test 06/09/17 04:30 06/09/17 17:30 06/10/17 03:55 06/10/17 07:34 White Blood Count 10.0 x10^3/uL (4.0-11.0) 10.6 x10^3/uL (4.0-11.0) 9.2 x10^3/uL (4.0-11.0) Red Blood Count 3.27 x10^6/uL (3.50-5.40) 3.35 x10^6/uL (3.50-5.40) 3.36 x10^6/uL (3.50-5.40) Hemoglobin 9.9 g/dL (12.0-15.5) 10.2 g/dL (12.0-15.5) 10.2 g/dL (12.0-15.5) Hematocrit 29.8 % (36.0-47.0) 30.2 % (36.0-47.0) 31.0 % (36.0-47.0) Mean Corpuscular Volume 91 fL (79-100) 90 fL (79-100) 92 fL (79-100) Mean Corpuscular Hemoglobin 30 pg (25-35) 30 pg (25-35) 30 pg (25-35) Mean Corpuscular Hemoglobin Concent 33 g/dL (31-37) 34 g/dL (31-37) 33 g/dL (31-37) Red Cell Distribution Width 14.1 % (11.5-14.5) 13.5 % (11.5-14.5) 14.0 % (11.5-14.5) Platelet Count 195 x10^3/uL (140-400) 199 x10^3/uL (140-400) 185 x10^3/uL (140-400) Neutrophils (%) (Auto) 81 % (31-73) 82 % (31-73) 80 % (31-73) Lymphocytes (%) (Auto) 9 % (24-48) 7 % (24-48) 8 % (24-48) Monocytes (%) (Auto) 7 % (0-9) 8 % (0-9) 9 % (0-9) Eosinophils (%) (Auto) 3 % (0-3) 3 % (0-3) 3 % (0-3) Basophils (%) (Auto) 0 % (0-3) 1 % (0-3) 0 % (0-3) Neutrophils # (Auto) 8.1 x10^3uL (1.8-7.7) 8.7 x10^3uL (1.8-7.7) 7.3 x10^3uL (1.8-7.7) Lymphocytes # (Auto) 0.9 x10^3/uL (1.0-4.8) 0.8 x10^3/uL (1.0-4.8) 0.8 x10^3/uL (1.0-4.8) Monocytes # (Auto) 0.7 x10^3/uL (0.0-1.1) 0.8 x10^3/uL (0.0-1.1) 0.8 x10^3/uL (0.0-1.1) Eosinophils # (Auto) 0.3 x10^3/uL (0.0-0.7) 0.3 x10^3/uL (0.0-0.7) 0.2 x10^3/uL (0.0-0.7) Basophils # (Auto) 0.0 x10^3/uL (0.0-0.2) 0.0 x10^3/uL (0.0-0.2) 0.0 x10^3/uL (0.0-0.2) Sodium Level 143 mmol/L (136-145) 142 mmol/L (136-145) Potassium Level 3.4 mmol/L (3.5-5.1) 3.4 mmol/L (3.5-5.1) Chloride Level 109 mmol/L (98-107) 108 mmol/L (98-107) Carbon Dioxide Level 26 mmol/L (21-32) 22 mmol/L (21-32) Anion Gap 8 (6-14) 12 (6-14) Blood Urea Nitrogen 11 mg/dL (7-20) 11 mg/dL (7-20) Creatinine 0.9 mg/dL (0.6-1.0) 1.0 mg/dL (0.6-1.0) Estimated GFR (Cockcroft-Gault) 60.9 53.9 BUN/Creatinine Ratio 12 (6-20) Glucose Level 119 mg/dL (70-99) 133 mg/dL (70-99) Calcium Level 8.1 mg/dL (8.5-10.1) 7.7 mg/dL (8.5-10.1) Total Bilirubin 0.3 mg/dL (0.2-1.0) Aspartate Amino Transf (AST/SGOT) 29 U/L (15-37) Alanine Aminotransferase (ALT/SGPT) 21 U/L (14-59) Alkaline Phosphatase 254 U/L (46-116) Total Protein 5.6 g/dL (6.4-8.2) Albumin 2.4 g/dL (3.4-5.0) Albumin/Globulin Ratio 0.8 (1.0-1.7) Lipase 348 U/L (73-393) Lactic Acid Level 0.9 mmol/L (0.4-2.0) Glucose (Fingerstick) 134 mg/dL (70-99) Laboratory Tests Test 06/09/17 17:30 06/10/17 03:55 06/10/17 07:34 White Blood Count 10.6 x10^3/uL (4.0-11.0) 9.2 x10^3/uL (4.0-11.0) Red Blood Count 3.35 x10^6/uL (3.50-5.40) 3.36 x10^6/uL (3.50-5.40) Hemoglobin 10.2 g/dL (12.0-15.5) 10.2 g/dL (12.0-15.5) Hematocrit 30.2 % (36.0-47.0) 31.0 % (36.0-47.0) Mean Corpuscular Volume 90 fL (79-100) 92 fL (79-100) Mean Corpuscular Hemoglobin 30 pg (25-35) 30 pg (25-35) Mean Corpuscular Hemoglobin Concent 34 g/dL (31-37) 33 g/dL (31-37) Red Cell Distribution Width 13.5 % (11.5-14.5) 14.0 % (11.5-14.5) Platelet Count 199 x10^3/uL (140-400) 185 x10^3/uL (140-400) Neutrophils (%) (Auto) 82 % (31-73) 80 % (31-73) Lymphocytes (%) (Auto) 7 % (24-48) 8 % (24-48) Monocytes (%) (Auto) 8 % (0-9) 9 % (0-9) Eosinophils (%) (Auto) 3 % (0-3) 3 % (0-3) Basophils (%) (Auto) 1 % (0-3) 0 % (0-3) Neutrophils # (Auto) 8.7 x10^3uL (1.8-7.7) 7.3 x10^3uL (1.8-7.7) Lymphocytes # (Auto) 0.8 x10^3/uL (1.0-4.8) 0.8 x10^3/uL (1.0-4.8) Monocytes # (Auto) 0.8 x10^3/uL (0.0-1.1) 0.8 x10^3/uL (0.0-1.1) Eosinophils # (Auto) 0.3 x10^3/uL (0.0-0.7) 0.2 x10^3/uL (0.0-0.7) Basophils # (Auto) 0.0 x10^3/uL (0.0-0.2) 0.0 x10^3/uL (0.0-0.2) Lactic Acid Level 0.9 mmol/L (0.4-2.0) Sodium Level 142 mmol/L (136-145) Potassium Level 3.4 mmol/L (3.5-5.1) Chloride Level 108 mmol/L (98-107) Carbon Dioxide Level 22 mmol/L (21-32) Anion Gap 12 (6-14) Blood Urea Nitrogen 11 mg/dL (7-20) Creatinine 1.0 mg/dL (0.6-1.0) Estimated GFR (Cockcroft-Gault) 53.9 Glucose Level 133 mg/dL (70-99) Calcium Level 7.7 mg/dL (8.5-10.1) Glucose (Fingerstick) 134 mg/dL (70-99) Medications Current Medications Sodium Chloride 1,000 ml @ 75 mls/hr [id number] IV Last administered on 02:47; Start 06/05/17 at 04:00; Stop 06/07/17 at 08:59; Status DC Fentanyl Citrate (Fentanyl 2ml Vial) 50 mcg PRN Q2HR PRN IV SEVERE PAIN Last administered on 06/06/17 02:41; Start 06/05/17 at 04:00; Stop 06/09/17 at 12: 29; Status DC Ondansetron HCl (Zofran) 4 mg PRN Q6HRS PRN IV NAUSEA/VOMITING; Start 06/05/17 at 04:00 Ceftriaxone Sodium 1 gm/ Dextrose 50 ml @ 100 mls/hr Q24H IV ; Start 06/05/17 at 04:00; Status UNV Ceftriaxone Sodium (Rocephin) 1 gm Q24H IVP Last administered on 06/05/17 22: 11; Start 06/05/17 at 22:00; Stop 06/06/17 at 14:45; Status DC Aspirin (Ecotrin) 81 mg DAILY PO Last administered on 06/10/17 08:24; Start 06/05/17 at 11:00 Atorvastatin Calcium (Lipitor) 40 mg QHS PO Last administered on 06/09/17 21: 22; Start 06/05/17 at 21:00 Carisoprodol (Soma) 350 mg BID PO Last administered on 06/10/17 08:23; Start 06/05/17 at 11:00 Vitamin D (Vitamin D3) 1,000 unit DAILY PO Last administered on 06/10/17 08: 24; Start 06/05/17 at 11:00 Acetaminophen/ Hydrocodone Bitart (Lortab 7.5/325) 1 tab PRN Q6HRS PRN PO PAIN Last administered on 06/10/17 09:10; Start 06/05/17 at 10:15 Acetaminophen/ Hydrocodone Bitart (Lortab 5/325) 1 tab PRN Q6HRS PRN PO PAIN Last administered on 06/09/17 03:48; Start 06/05/17 at 10:15 Levothyroxine Sodium (Synthroid) 88 mcg DAILY07 PO Last administered on 08:24; Start 06/06/17 at 07:00 Pioglitazone HCl (Actos) 15 mg DAILY PO ; Start 06/05/17 at 11:30; Stop at 11:30; Status DC Lisinopril (Prinivil) 10 mg DAILY PO ; Start 06/05/17 at 11:00; Stop 06/05/17 at 12:05; Status DC Magnesium Citrate (Citroma) 296 ml 1X ONCE PO Last administered on 06/05/17 14:05; Start 06/05/17 at 10:30; Stop 06/05/17 at 10:31; Status DC Polyethylene Glycol (miraLAX PACKET) 17 gm DAILY PO Last administered on 09:00; Start 06/05/17 at 11:00 Metformin HCl (Glucophage) 850 mg DAILY PO ; Start 06/06/17 at 09:00; Stop 04/13 at 09:00; Status DC Lactobacillus Rhamnosus (Culturelle) 1 cap BID PO Last administered on 08:23; Start 06/05/17 at 21:00 Trazodone HCl (Desyrel) 50 mg QHS PO Last administered on 06/09/17 21:21; Start 06/06/17 at 21:00 Cefpodoxime Proxetil (Vantin) 100 mg BID PO Last administered on 06/10/17 08: 23; Start 06/06/17 at 21:00; Stop 06/10/17 at 10:43; Status DC Phenyleph/Shark Oil/Min Oil/Petrol (Preparation H) 1 allen TID PRN PRN RC RECTAL PAIN Last administered on 06/08/17 20:41; Start 06/06/17 at 18:30 Potassium Chloride/Sodium Chloride 1,000 ml @ 75 mls/hr 1X ONCE IV Last administered on 06/07/17 09:25; Start 06/07/17 at 09:00; Stop 06/07/17 at 22 :19; Status DC Potassium Chloride (Klor-Con) 40 meq 1X ONCE PO Last administered on 09:17; Start 06/07/17 at 09:00; Stop 06/07/17 at 09:04; Status DC Saliva Substitute (Biotene Moisturizing Mouth) 2 spray PRN Q15MIN PRN PO DRY MOUTH Last administered on 06/08/17 10:55; Start 06/07/17 at 09:15 Potassium Chloride (Klor-Con) 20 meq 1X ONCE PO Last administered on 14:21; Start 06/07/17 at 12:00; Stop 06/07/17 at 12:01; Status DC Sodium Monofluorophosphate (Fleet Adult) 133 ml 1X ONCE AK Last administered on 06/07/17 15:22; Start 06/07/17 at 14:30; Stop 06/07/17 at 14:31; Status DC Bisacodyl (Dulcolax Supp) 10 mg 1X ONCE AK ; Start 06/07/17 at 14:30; Stop at 14:31; Status DC Lidocaine/Sodium Bicarbonate (Buffered Lidocaine 1%) 20 ml STK-MED ONCE IJ ; Start 06/08/17 at 07:57; Stop 06/08/17 at 07:58; Status DC Midazolam HCl (Versed) 5 mg STK-MED ONCE .ROUTE ; Start 06/08/17 at 08:34; Stop 06/08/17 at 08:35; Status DC Fentanyl Citrate (Fentanyl 5ml Vial) 250 mcg STK-MED ONCE .ROUTE ; Start at 08:34; Stop 06/08/17 at 08:35; Status DC Cefazolin Sodium/ Dextrose 50 ml @ As Directed STK-MED ONCE IV ; Start at 08:51; Stop 06/08/17 at 08:52; Status DC Lidocaine/Sodium Bicarbonate (Buffered Lidocaine 1%) 5 ml 1X ONCE IJ Last administered on 06/08/17 09:42; Start 06/08/17 at 09:45; Stop 06/08/17 at 09 :46; Status DC Midazolam HCl (Versed) 4 mg 1X ONCE IV Last administered on 06/08/17 09:42; Start 06/08/17 at 09:45; Stop 06/08/17 at 09:46; Status DC Fentanyl Citrate (Fentanyl 5ml Vial) 200 mcg 1X ONCE IV Last administered on 06/08/17 09:43; Start 06/08/17 at 09:45; Stop 06/08/17 at 09:46; Status DC Cefazolin Sodium/ Dextrose 50 ml @ 100 mls/hr 1X ONCE IV Last administered on 06/08/17 08:23; Start 06/08/17 at 09:45; Stop 06/08/17 at 10:14; Status DC Magnesium Sulfate/ Dextrose 50 ml @ 25 mls/hr 1X ONCE IV Last administered on 06/08/17 13:16; Start 06/08/17 at 12:30; Stop 06/08/17 at 14:29; Status DC Potassium Chloride (Klor-Con) 20 meq DAILYWBKFT PO Last administered on 08:24; Start 06/09/17 at 14:00 Piperacillin Sod/ Tazobactam Sod 3.375 gm/Dextrose 50 ml @ 100 mls/hr Q6HRS IV Last administered on 06/10/17 05:42; Start 06/09/17 at 18:00; Stop at 13:00 Acetaminophen (Tylenol) 650 mg PRN Q6HRS PRN PO FEVER Last administered on 18:10; Start 06/09/17 at 17:15 Iohexol (Omnipaque 240 Mg/ml) 30 ml 1X ONCE PO ; Start 06/09/17 at 17:15; Stop 06/09/17 at 17:17; Status DC Iohexol (Omnipaque 300 Mg/ml) 75 ml 1X ONCE IV ; Start 06/09/17 at 17:15; Stop 06/09/17 at 17:17; Status DC Info (Do NOT chart on this entry -- for MONITORING) 1 each PRN DAILY PRN MC SEE COMMENTS; Start 06/09/17 at 17:30; Stop 06/11/17 at 17:29 Levofloxacin/ Dextrose 100 ml @ 100 mls/hr Q24H IV Last administered on 21:23; Start 06/09/17 at 21:00; Stop 06/10/17 at 10:43; Status DC Piperacillin Sod/ Tazobactam Sod (Zosyn) 3.375 gm Q6HRS IVP ; Start 06/10/17 at 18:00 Active Scripts Active Reported Vitamin D3 (Cholecalciferol (Vitamin D3)) 1,000 Unit Tablet 1 Tab PO DAILY Soma (Carisoprodol) 350 Mg Tablet 1 Tab PO BID Quinapril Hcl 10 Mg Tablet 1 Tab PO DAILY Pioglitazone-Metformin 15-850 (Pioglitazone Hcl/Metformin Hcl) 1 Each Tablet 1 Each PO DAILY Levothyroxine Sodium 88 Mcg Tablet 1 Tab PO DAILY Hydrocodone-Apap 7.5-325 (Hydrocodone Bit/Acetaminophen) 1 Each Tablet 1 Tab PO PRN Q6HRS PRN [place] 5-325 Tablet (Acetaminophen/Hydrocodone Bitart) 1 Each Tablet 1 Tab PO PRN Q6HRS PRN Centrum Silver Tablet (Multivits-Min/Fa/Lycopene/Lut) 1 Each Tablet 1 Each PO Atorvastatin Calcium 40 Mg Tablet 1 Tab PO DAILY Aspir 81 (Aspirin) 81 Mg Tablet. 1 Tab PO DAILY Vitals/I & O Vital Sign - Last 24 Hours 06/09/17 06/09/17 06/09/17 06/09/17 15:00 19:43 20:00 23:48 Temp 101.3 99.5 98.6 101.3 99.5 98.6 Pulse 104 87 94 Resp 20 18 18 B/P (MAP) 143/70 (94) 142/66 (91) 128/54 (78) Pulse Ox 96 95 97 O2 Delivery Room Air Room Air Room Air Room Air 06/10/17 06/10/17 06/10/17 06/10/17 03:52 03:59 04:59 07:00 Temp 99.2 99.1 99.2 99.1 Pulse 105 83 Resp 18 18 18 18 B/P (MAP) 128/62 (84) 148/72 (97) Pulse Ox 97 94 O2 Delivery Room Air Room Air Room Air Room Air O2 Flow Rate 94.0 06/10/17 09:10 Pulse Ox 94 O2 Delivery Room Air O2 Flow Rate 94.0 Intake and Output 06/09/17 06/09/17 06/10/17 15:00 23:00 07:00 Intake Total 1280 ml 480 ml Output Total 200 ml Balance 1080 ml 480 ml NAJMA HINES MD Jun 10, 2017 11:14
--- NOTE | 2017-06-10 11:41 | PDOC ---
Subjective: Subjective: No abd pain. Had a stool earlier. Lower back pain. Tired of hurting, misses her cat. Tolerating diet. Objective: Objective: Tmax 101.3 Vital Signs: Vital Signs Date Time Temp Pulse Resp B/P (MAP) Pulse Ox O2 Delivery O2 Flow Rate FiO2 06/10/17 09:10 94 Room Air 94.0 06/10/17 07:00 99.1 83 18 148/72 (97) 99.1 Labs: Laboratory Tests Test 06/10/17 07:34 Glucose (Fingerstick) 134 mg/dL (70-99) Imaging: CT A/P MPRESSION: 1. Cholelithiasis. 2. Bilateral nephrocalcinosis. 3. Minimal sigmoid diverticulosis. 4. Unchanged small collection of presacral fluid related to the patient's recent sacral fracture. 5. Fat-containing left inguinal hernia. PE: GEN: NAD, up to chair LUNGS: CTAB HEART: RRR ABD: S/ND/NT NEURO/PSYCH: A & O 3, became tearful A/P: Constipation - resolved Back pain, s/p sacroplasty Fever - UA/cx ordered -- Continue constipation treatment (note she refused Miralax earlier). VAN OROSCO Jun 10, 2017 11:41
[2017-06-10 15:00] VITALS: BP 136/72
[2017-06-10 16:42] LABS: BILIRUBIN,URINE NEGATIVE (NEG); GLUCOSE,URINE NEGATIVE (NEG); NITRITE,URINE NEGATIVE (NEG); PH,URINE 5.5; PROTEIN,URINE 30 mg/dL (NEG-TRACE); UROBILINOGEN,URINE 0.2 mg/dL (0.2 mg/dL)
[2017-06-10 17:03] LABS: BACTERIA,URINE 0 /HPF (0-FEW); RBC,URINE 0 /HPF (0-2); SQUAMOUS EPITHELIAL CELL,UR OCC /LPF
--- NOTE | 2017-06-10 18:55 | CONS ---
DATE OF CONSULTATION: 06/10/2017 REQUESTING PHYSICIAN: Dr. Stover. REASON FOR CONSULTATION: Fever. HISTORY OF PRESENT ILLNESS: This is a 77-year-old female who has been going some problem with pain. The patient says she has not had any fall or trauma when the pain started. The patient says that the last fall was a fall forward to the face in July. She was walking significant amount of the distance until several weeks ago. She started having the right hip pain and then the left hip pain and then, she had been seen by her primary care and subsequent another specialist. An injection was given into both the hips and that pain continued to bother, hence further evaluation and she came to the ER, especially also, she has had abdominal pain and she has not had a bowel movement for 7 days or so with a significant amount of pain medication. The patient was found to have sacral fracture, which is unclear whether that happened in July or it was a referred pain that she was getting from sacral fracture in an event she got vertebroplasty. The patient had vertebroplasty done on 06/08/2017. The patient had significant workup for abdominal pain including CT and ultrasound, which was unremarkable other than gallstones. The patient says that she was doing reasonably well and then started having fever. Yesterday, she had up to 101.3 fever, hence the patient was put on Zosyn and Levaquin, was already getting Vantin for some reason. The patient says she is now having right-sided hip pain again and her mobility has gone down because of the pain. She felt she had a fever. She denies any nausea, vomiting, diarrhea. Denies any urinary symptoms. Denies any chest pain, shortness of breath, headache or visual symptoms or abdominal pain. She did have a good cleanout done of her constipation. PAST MEDICAL HISTORY: Positive for diabetes mellitus, hypertension, hyperlipidemia, carpal tunnel syndrome with surgeries done. SOCIAL HISTORY: Negative for smoking, alcohol or illicit drug use. ALLERGIES: No known drug allergies. CURRENT MEDICATIONS: Reviewed. REVIEW OF SYSTEMS: As per HPI, all other systems reviewed are negative. PHYSICAL EXAMINATION: GENERAL: Alert, oriented female, not in distress. VITAL SIGNS: Stable with a current temperature of 99.1, T-max 101.3. Rest of vitals are stable. HEENT: Anicteric. NECK: Supple, no JVP, no lymphadenopathy. LUNGS: Clear. HEART: S1, S2 regular. ABDOMEN: Benign. EXTREMITIES: No edema, cyanosis. SKIN: Unremarkable. Her injection site and the vertebroplasty area are not showing any obvious signs of infection. NEUROLOGIC: The patient is neurologically intact. LABORATORY DATA: White count is 9.2, platelets are normal. BUN and creatinine is normal. Lactic acid is normal. Her abdominal pelvic CT was unremarkable other than cholelithiasis. Chest x-ray was unremarkable. Lumbar spine MRI was reviewed. IMPRESSION: 1. Fever, etiology is unclear. There is no obvious infection, although urine has never been done, this could be post-procedure atelectasis, post-procedure infection is less likely or unlikely. 2. Status post vertebroplasty for sacral fracture. 3. Abdominal pain with constipation, which has improved. 4. Mobility issues. 5. Diabetes. 6. Hypertension. RECOMMENDATIONS: We will get straight cath UA and RN PRIVATE DUTY if indicated. We will also monitor the blood culture. The patient was encouraged to have more ambulation ____ PT and OT and we will continue Zosyn today. Discontinue Levaquin and discontinue Vantin, and hopefully, culture remains negative tomorrow, may be able to scale down for discharge to rehabilitation. Thank you very much, Dr. Stover for giving me the opportunity to participate in this patient's care. MIGUELINA LEA MD DR: FARHAT/edmundo JOB#: [id number] / [id number]
[2017-06-10 19:00] VITALS: BP 132/62
[2017-06-10] MEDS: PIPERACILLIN/TAZO IV Push 3.375 GM VIAL. IVP SCH (19:20)
[2017-06-10] MEDS: ATORVASTATIN CALCIUM 40 MG TABLET. PO SCH (21:55)
[2017-06-10] MEDS: traZODone 50 MG TABLET. PO SCH (21:56)
[2017-06-10 23:00] VITALS: BP 127/60
[2017-06-11] MEDS: PIPERACILLIN/TAZO IV Push 3.375 GM VIAL. IVP SCH ×2 (01:14→06:28)
[2017-06-11 03:00] VITALS: BP 141/69
[2017-06-11 05:35] LABS: BASO % 1 % (0-3); EOS % 5 % (0-3); HEMATOCRIT 26.6 % (36.0-47.0); HEMOGLOBIN 8.8 g/dL (12.0-15.5); LYMPH # 0.7 x10^3/uL (1.0-4.8); LYMPH % 10 % (24-48); MEAN CORPUSCULAR HEMOGLOBIN 30 pg (25-35); MEAN CORPUSCULAR HGB CONC 33 g/dL (31-37); MEAN CORPUSCULAR VOLUME 90 fL (79-100); MONO % 9 % (0-9); NEUT % 76 % (31-73); PLATELET COUNT 165 x10^3/uL (140-400); RED BLOOD COUNT 2.95 x10^6/uL (3.50-5.40); RED CELL DISTRIBUTION WIDTH 13.8 % (11.5-14.5); WHITE BLOOD COUNT 7.2 x10^3/uL (4.0-11.0)
[2017-06-11 06:04] LABS: CALCIUM 7.5 mg/dL (8.5-10.1); GFR 53.9; POTASSIUM 3.3 mmol/L (3.5-5.1)
[2017-06-11] MEDS: HYDROcodone/APAP 7.5/325MG 1 TAB TABLET PO PRN ×2 (06:29→12:50)
[2017-06-11] MEDS: LEVOTHYROXINE 88 MCG TABLET PO SCH (06:33)
[2017-06-11 07:00] VITALS: BP 129/66
[2017-06-11] MEDS: LACTOBACILLUS RHAMNOSUS GG 1 CAPSULE. PO SCH (08:50)
[2017-06-11] MEDS: CHOLECALCIFEROL (VITAMIN D3) 1,000 UNIT TABLET PO SCH (08:50)
[2017-06-11] MEDS: ASPIRIN ENTERIC COATED 81 MG TABLET.DR. PO SCH (08:50)
[2017-06-11] MEDS: CARISOPRODOL 350 MG TABLET PO SCH (08:50)
[2017-06-11] MEDS: POTASSIUM CHLORIDE 20 MEQ TABLET.ER. PO SCH (08:50)
[2017-06-11] MEDS: POLYETHYLENE GLYCOL 3350 17 GM PACKET. PO SCH (08:54)
--- NOTE | 2017-06-11 08:56 | PDOC ---
Infectious Disease Note Subjective Subjective pt feeling better, off and on back pain ROS ROS GEN: Denies fevers, chills, sweats HEENT: Denies blurred vision, sore throat CV: Denies chest pain RESP: Denies shortness of air, cough GI: Denies n/v/d NEURO: Denies confusion, dizziness MSK: Denies weakness, joint pain/swelling Vital Sign Vital Signs Vital Signs Date Time Temp Pulse Resp B/P (MAP) Pulse Ox O2 Delivery O2 Flow Rate FiO2 06/11/17 07:30 14 Room Air 06/11/17 07:00 98.6 87 129/66 (87) 97 98.6 06/10/17 17:25 94.0 Physical Exam PHYSICAL EXAM GENERAL: NAD, Alert HEENT: PERRL, OC/OP NECK: Supple, no JVD, no LN LUNGS: Clear HEART: S1S2, no gallop, no murmur ABD: Soft, NT, no organomegaly, no rebound EXT: No edema, no cyanosis NEON SIGN MAKER: Alert, oriented x 3, no focal neurologic deficit SKIN: No rash IV: ok Labs Lab Laboratory Tests Test 06/10/17 11:40 06/10/17 14:50 06/10/17 17:04 06/10/17 20:47 Glucose (Fingerstick) 137 mg/dL (70-99) 130 mg/dL (70-99) 155 mg/dL (70-99) Urine Color Yellow Urine Clarity Clear Urine pH 5.5 Urine Specific [place] >=1.030 Urine Protein 30 mg/dL (NEG-TRACE) Urine Glucose (UA) Negative mg/dL (NEG) Urine Ketones (Stick) Trace mg/dL (NEG) Urine Blood Negative (NEG) Urine Nitrite Negative (NEG) Urine Bilirubin Negative (NEG) Urine Urobilinogen Dipstick 0.2 mg/dL (0.2 mg/dL) Urine Leukocyte Esterase Moderate (NEG) Urine RBC 0 /HPF (0-2) Urine WBC 5-10 /HPF (0-4) Urine Squamous Epithelial Cells Occ /LPF Urine Amorphous Sediment Present /HPF Urine Bacteria 0 /HPF (0-FEW) Test 06/11/17 05:15 06/11/17 08:13 White Blood Count 7.2 x10^3/uL (4.0-11.0) Red Blood Count 2.95 x10^6/uL (3.50-5.40) Hemoglobin 8.8 g/dL (12.0-15.5) Hematocrit 26.6 % (36.0-47.0) Mean Corpuscular Volume 90 fL (79-100) Mean Corpuscular Hemoglobin 30 pg (25-35) Mean Corpuscular Hemoglobin Concent 33 g/dL (31-37) Red Cell Distribution Width 13.8 % (11.5-14.5) Platelet Count 165 x10^3/uL (140-400) Neutrophils (%) (Auto) 76 % (31-73) Lymphocytes (%) (Auto) 10 % (24-48) Monocytes (%) (Auto) 9 % (0-9) Eosinophils (%) (Auto) 5 % (0-3) Basophils (%) (Auto) 1 % (0-3) Neutrophils # (Auto) 5.5 x10^3uL (1.8-7.7) Lymphocytes # (Auto) 0.7 x10^3/uL (1.0-4.8) Monocytes # (Auto) 0.6 x10^3/uL (0.0-1.1) Eosinophils # (Auto) 0.4 x10^3/uL (0.0-0.7) Basophils # (Auto) 0.0 x10^3/uL (0.0-0.2) Sodium Level 143 mmol/L (136-145) Potassium Level 3.3 mmol/L (3.5-5.1) Chloride Level 108 mmol/L (98-107) Carbon Dioxide Level 26 mmol/L (21-32) Anion Gap 9 (6-14) Blood Urea Nitrogen 12 mg/dL (7-20) Creatinine 1.0 mg/dL (0.6-1.0) Estimated GFR (Cockcroft-Gault) 53.9 Glucose Level 120 mg/dL (70-99) Calcium Level 7.5 mg/dL (8.5-10.1) Glucose (Fingerstick) 128 mg/dL (70-99) Objective Assessment Fever, ? post procedure atelectasis, resolved S/P Vertebroplasty for sacral fracture Noel hip pain/bursitis DM HTN Plan Plan of Care change antibiotics to po augmentin check cultures supportive care pt/ot MIGUELINA LEA MD Jun 11, 2017 08:56
[2017-06-11] MEDS ORDERED: AMOXICILLIN/K CLAV 875/125MG TABLET. PO SCH (09:00)
[2017-06-11 11:00] VITALS: BP 116/63
[2017-06-11] MEDS ORDERED: AMOX1TAB11 PO (13:16)
[2017-06-11] MEDS ORDERED: POTA20TA4 PO (13:16)
[2017-06-11] MEDS ORDERED: LACT1CAP19 PO (13:16)
[2017-06-11] MEDS ORDERED: HYDR-2762 PO (13:16)
[2017-06-11] MEDS ORDERED: MAGNESIUM SULFATE 2GM 50 ML IV ONE (14:00)
[2017-06-11 15:00] VITALS: BP 138/67
--- NOTE | 2017-06-11 15:16 | PDOC3 ---
Discharge Summary Visit Information Date of Admission: Jun 05, 2017 Date of Discharge: Jun 11, 2017 Admitting Diagnosis: back pain Final Diagnosis acute Abd pain/constipation, acute ileus, Dehydration, vasomotor nephropathy, POA Acute Kidney injury improving, hypernatremia and hypokalemia r B/l sacral Fx with intractable pain DM II, HTN POST Vertebroplasty distended gallbladder , no cholcystitis, gallstones, Brief Hospital Course Allergies Allergies Coded Allergies Type Severity Reaction Last Updated Verified No Known Drug Allergies 05/01/14 No Vital Signs Vital Signs Date Time Temp Pulse Resp B/P (MAP) Pulse Ox O2 Delivery O2 Flow Rate FiO2 06/11/17 12:50 97 Room Air 94.0 06/11/17 11:00 98.1 101 18 116/63 (80) 98.1 Lab Results Laboratory Tests Test 06/09/17 17:30 06/10/17 03:55 06/10/17 07:34 06/10/17 11:40 White Blood Count 10.6 x10^3/uL (4.0-11.0) 9.2 x10^3/uL (4.0-11.0) Red Blood Count 3.35 x10^6/uL (3.50-5.40) 3.36 x10^6/uL (3.50-5.40) Hemoglobin 10.2 g/dL (12.0-15.5) 10.2 g/dL (12.0-15.5) Hematocrit 30.2 % (36.0-47.0) 31.0 % (36.0-47.0) Mean Corpuscular Volume 90 fL (79-100) 92 fL (79-100) Mean Corpuscular Hemoglobin 30 pg (25-35) 30 pg (25-35) Mean Corpuscular Hemoglobin Concent 34 g/dL (31-37) 33 g/dL (31-37) Red Cell Distribution Width 13.5 % (11.5-14.5) 14.0 % (11.5-14.5) Platelet Count 199 x10^3/uL (140-400) 185 x10^3/uL (140-400) Neutrophils (%) (Auto) 82 % (31-73) 80 % (31-73) Lymphocytes (%) (Auto) 7 % (24-48) 8 % (24-48) Monocytes (%) (Auto) 8 % (0-9) 9 % (0-9) Eosinophils (%) (Auto) 3 % (0-3) 3 % (0-3) Basophils (%) (Auto) 1 % (0-3) 0 % (0-3) Neutrophils # (Auto) 8.7 x10^3uL (1.8-7.7) 7.3 x10^3uL (1.8-7.7) Lymphocytes # (Auto) 0.8 x10^3/uL (1.0-4.8) 0.8 x10^3/uL (1.0-4.8) Monocytes # (Auto) 0.8 x10^3/uL (0.0-1.1) 0.8 x10^3/uL (0.0-1.1) Eosinophils # (Auto) 0.3 x10^3/uL (0.0-0.7) 0.2 x10^3/uL (0.0-0.7) Basophils # (Auto) 0.0 x10^3/uL (0.0-0.2) 0.0 x10^3/uL (0.0-0.2) Lactic Acid Level 0.9 mmol/L (0.4-2.0) Sodium Level 142 mmol/L (136-145) Potassium Level 3.4 mmol/L (3.5-5.1) Chloride Level 108 mmol/L (98-107) Carbon Dioxide Level 22 mmol/L (21-32) Anion Gap 12 (6-14) Blood Urea Nitrogen 11 mg/dL (7-20) Creatinine 1.0 mg/dL (0.6-1.0) Estimated GFR (Cockcroft-Gault) 53.9 Glucose Level 133 mg/dL (70-99) Calcium Level 7.7 mg/dL (8.5-10.1) Glucose (Fingerstick) 134 mg/dL (70-99) 137 mg/dL (70-99) Test 06/10/17 14:50 06/10/17 17:04 06/10/17 20:47 06/11/17 05:15 Urine Color Yellow Urine Clarity Clear Urine pH 5.5 Urine Specific [place] >=1.030 Urine Protein 30 mg/dL (NEG-TRACE) Urine Glucose (UA) Negative mg/dL (NEG) Urine Ketones (Stick) Trace mg/dL (NEG) Urine Blood Negative (NEG) Urine Nitrite Negative (NEG) Urine Bilirubin Negative (NEG) Urine Urobilinogen Dipstick 0.2 mg/dL (0.2 mg/dL) Urine Leukocyte Esterase Moderate (NEG) Urine RBC 0 /HPF (0-2) Urine WBC 5-10 /HPF (0-4) Urine Squamous Epithelial Cells Occ /LPF Urine Amorphous Sediment Present /HPF Urine Bacteria 0 /HPF (0-FEW) Glucose (Fingerstick) 130 mg/dL (70-99) 155 mg/dL (70-99) White Blood Count 7.2 x10^3/uL (4.0-11.0) Red Blood Count 2.95 x10^6/uL (3.50-5.40) Hemoglobin 8.8 g/dL (12.0-15.5) Hematocrit 26.6 % (36.0-47.0) Mean Corpuscular Volume 90 fL (79-100) Mean Corpuscular Hemoglobin 30 pg (25-35) Mean Corpuscular Hemoglobin Concent 33 g/dL (31-37) Red Cell Distribution Width 13.8 % (11.5-14.5) Platelet Count 165 x10^3/uL (140-400) Neutrophils (%) (Auto) 76 % (31-73) Lymphocytes (%) (Auto) 10 % (24-48) Monocytes (%) (Auto) 9 % (0-9) Eosinophils (%) (Auto) 5 % (0-3) Basophils (%) (Auto) 1 % (0-3) Neutrophils # (Auto) 5.5 x10^3uL (1.8-7.7) Lymphocytes # (Auto) 0.7 x10^3/uL (1.0-4.8) Monocytes # (Auto) 0.6 x10^3/uL (0.0-1.1) Eosinophils # (Auto) 0.4 x10^3/uL (0.0-0.7) Basophils # (Auto) 0.0 x10^3/uL (0.0-0.2) Sodium Level 143 mmol/L (136-145) Potassium Level 3.3 mmol/L (3.5-5.1) Chloride Level 108 mmol/L (98-107) Carbon Dioxide Level 26 mmol/L (21-32) Anion Gap 9 (6-14) Blood Urea Nitrogen 12 mg/dL (7-20) Creatinine 1.0 mg/dL (0.6-1.0) Estimated GFR (Cockcroft-Gault) 53.9 Glucose Level 120 mg/dL (70-99) Calcium Level 7.5 mg/dL (8.5-10.1) Test 06/11/17 08:13 06/11/17 11:35 Glucose (Fingerstick) 128 mg/dL (70-99) 125 mg/dL (70-99) Laboratory Tests Test 06/10/17 17:04 06/10/17 20:47 06/11/17 05:15 06/11/17 08:13 Glucose (Fingerstick) 130 mg/dL (70-99) 155 mg/dL (70-99) 128 mg/dL (70-99) White Blood Count 7.2 x10^3/uL (4.0-11.0) Red Blood Count 2.95 x10^6/uL (3.50-5.40) Hemoglobin 8.8 g/dL (12.0-15.5) Hematocrit 26.6 % (36.0-47.0) Mean Corpuscular Volume 90 fL (79-100) Mean Corpuscular Hemoglobin 30 pg (25-35) Mean Corpuscular Hemoglobin Concent 33 g/dL (31-37) Red Cell Distribution Width 13.8 % (11.5-14.5) Platelet Count 165 x10^3/uL (140-400) Neutrophils (%) (Auto) 76 % (31-73) Lymphocytes (%) (Auto) 10 % (24-48) Monocytes (%) (Auto) 9 % (0-9) Eosinophils (%) (Auto) 5 % (0-3) Basophils (%) (Auto) 1 % (0-3) Neutrophils # (Auto) 5.5 x10^3uL (1.8-7.7) Lymphocytes # (Auto) 0.7 x10^3/uL (1.0-4.8) Monocytes # (Auto) 0.6 x10^3/uL (0.0-1.1) Eosinophils # (Auto) 0.4 x10^3/uL (0.0-0.7) Basophils # (Auto) 0.0 x10^3/uL (0.0-0.2) Sodium Level 143 mmol/L (136-145) Potassium Level 3.3 mmol/L (3.5-5.1) Chloride Level 108 mmol/L (98-107) Carbon Dioxide Level 26 mmol/L (21-32) Anion Gap 9 (6-14) Blood Urea Nitrogen 12 mg/dL (7-20) Creatinine 1.0 mg/dL (0.6-1.0) Estimated GFR (Cockcroft-Gault) 53.9 Glucose Level 120 mg/dL (70-99) Calcium Level 7.5 mg/dL (8.5-10.1) Test 06/11/17 11:35 Glucose (Fingerstick) 125 mg/dL (70-99) Brief Hospital Course Ms. Pisano is a 77 old admit because of abdominal pain and acute on chronic lower back pain. PE ruled out, PULM consulted Gi consutled for abd pain, advance diet as tolerated IV abd for UTI, pain better back pain persisted BUN and Creatinine improved, 90 and 1.7,on 06/06, 12 and 1.0 on DC had considered sacroplasty, cancelled, may revisit after therapy, rehab Discharge Information Condition at Discharge: Improved Follow Up: Weeks Disposition/Orders: D/C to Another Facility Scheduled Amoxicillin/Potassium Clav (Amox Tr-K Clv 875-125 Mg Tab), 1 TAB PO BID Aspirin (Aspir 81), 1 TAB PO DAILY, (Reported) Atorvastatin Calcium (Atorvastatin Calcium), 1 TAB PO DAILY, (Reported) Carisoprodol (Soma), 1 TAB PO BID, (Reported) Cholecalciferol (Vitamin D3) (Vitamin D3), 1 TAB PO DAILY, (Reported) Lactobacillus Rhamnosus Gg (Culturelle), 1 CAP PO BID Levothyroxine Sodium (Levothyroxine Sodium), 1 TAB PO DAILY, (Reported) Pioglitazone Hcl/Metformin Hcl (Pioglitazone-Metformin 15850), 1 EACH PO DAILY, (Reported) Potassium Chloride (Klor-Con M20), 20 MEQ PO DAILYWBKFT Quinapril Hcl (Quinapril Hcl), 1 TAB PO DAILY, (Reported) Scheduled PRN Hydrocodone Bit/Acetaminophen (Hydrocodone-Apap 7.5-325 ), 1 TAB PO PRN Q4HRS PRN for PAIN Hydrocodone/Apap 5-325 ([place] 5-325 Tablet), 1 TAB PO PRN Q6HRS PRN for PAIN, ( Reported) Miscellaneous Medications Multivits-Min/Fa/Lycopene/Lut (Centrum Silver Tablet), 1 EACH PO, (Reported) Patient Instructions Patient Instructions > 30 min face to face eval X2 pain meds reviewed, JEFF Queen MD Jun 11, 2017 15:16
== END 2017-06-11 17:30 | DRG 515 ==
LOC: 4 NORTH 02:50
PROVIDERS: ADMIT Internal Medicine; ATTEND Internal Medicine
PROC: 0QU13JZ Supplement Sacrum with Synthetic Substitute, Percutaneous Approach (ICD-10-PCS; principal; 2017-06-09)
DX: S32.10XA Unspecified fracture of sacrum, initial encounter for closed fracture (principal); N17.0 Acute kidney failure with tubular necrosis; K85.90 Acute pancreatitis without necrosis or infection, unspecified; E87.0 Hyperosmolality and hypernatremia; E11.22 Type 2 diabetes mellitus with diabetic chronic kidney disease; E83.59 Other disorders of calcium metabolism; K56.7 Ileus, unspecified; J98.11 Atelectasis; K80.10 Calculus of gallbladder with chronic cholecystitis without obstruction; N39.0 Urinary tract infection, site not specified; S32.049A Unspecified fracture of fourth lumbar vertebra, initial encounter for closed fracture; S32.059A Unspecified fracture of fifth lumbar vertebra, initial encounter for closed fracture; E03.9 Hypothyroidism, unspecified; E78.5 Hyperlipidemia, unspecified; E86.0 Dehydration; E87.6 Hypokalemia; G89.29 Other chronic pain; I12.9 Hypertensive chronic kidney disease with stage 1 through stage 4 chronic kidney disease, or unspecified chronic kidney disease; I25.10 Atherosclerotic heart disease of native coronary artery without angina pectoris; I87.2 Venous insufficiency (chronic) (peripheral); K40.90 Unilateral inguinal hernia, without obstruction or gangrene, not specified as recurrent; K57.30 Diverticulosis of large intestine without perforation or abscess without bleeding; K59.03 Drug induced constipation; K82.8 Other specified diseases of gallbladder; M43.16 Spondylolisthesis, lumbar region; N18.9 Chronic kidney disease, unspecified; N29 Other disorders of kidney and ureter in diseases classified elsewhere; R79.1 Abnormal coagulation profile; T40.2X5A Adverse effect of other opioids, initial encounter; Z91.81 History of falling; G56.00 Carpal tunnel syndrome, unspecified upper limb; M54.5 Low back pain; W18.39XA Other fall on same level, initial encounter; Y93.89 Activity, other specified; Y92.89 Other specified places as the place of occurrence of the external cause; Y99.8 Other external cause status
CPT/HCPCS: 22511; 36415; 71010; 72148; 72195; 74176; 76700; 78582; 80048; 80053; 81001; 82150; 82962; 82977; 83036; 83605; 83690; 83735; 85025; 85610; 85730; 87040; 87086; 93970; 96374; 99152; 99153; A9540; A9558; C1725; G0238; J0690; J0696; J1956; J2250; J2543; J3010; J7030; J7060; 97110; 97116; 97530; 97535

== ENCOUNTER → 2017-06-18 | Outpatient (CLI) | payer MEDICARE, OTHER ==
[2017-06-18 07:23] LABS: ADD MAN DIFF? NO
[2017-06-18 07:44] LABS: BASO % 1 % (0-3); EOS % 4 % (0-3); HEMATOCRIT 27.9 % (36.0-47.0); HEMOGLOBIN 9.1 g/dL (12.0-15.5); LYMPH # 0.7 x10^3/uL (1.0-4.8); LYMPH % 18 % (24-48); MEAN CORPUSCULAR HEMOGLOBIN 30 pg (25-35); MEAN CORPUSCULAR HGB CONC 33 g/dL (31-37); MEAN CORPUSCULAR VOLUME 92 fL (79-100); MONO % 10 % (0-9); NEUT % 68 % (31-73); PLATELET COUNT 199 x10^3/uL (140-400); RED BLOOD COUNT 3.05 x10^6/uL (3.50-5.40); RED CELL DISTRIBUTION WIDTH 14.3 % (11.5-14.5); WHITE BLOOD COUNT 4.1 x10^3/uL (4.0-11.0)
[2017-06-18 08:11] LABS: ALBUMIN 2.4 g/dL (3.4-5.0); ALBUMIN/GLOBULIN RATIO 0.8 (1.0-1.7); ALK PHOS 202 U/L (46-116); ALT (SGPT) 28 U/L (14-59); ANION GAP 8 (6-14); AST (SGOT) 30 U/L (15-37); BLOOD UREA NITROGEN 19 mg/dL (7-20); BUN/CREATININE RATIO 24 (6-20); CALCIUM 7.1 mg/dL (8.5-10.1); CARBON DIOXIDE 28 mmol/L (21-32); CHLORIDE 106 mmol/L (98-107); CREATININE 0.8 mg/dL (0.6-1.0); GFR 69.7; GLUCOSE 117 mg/dL (70-99); POTASSIUM 4.1 mmol/L (3.5-5.1); SODIUM 142 mmol/L (136-145); TOTAL BILIRUBIN 0.2 mg/dL (0.2-1.0); TOTAL PROTEIN 5.3 g/dL (6.4-8.2)
== END | disposition home or self-care (01) ==
LOC: SPEC 07:12
DX: E03.9 Hypothyroidism, unspecified (principal); E78.5 Hyperlipidemia, unspecified; N17.9 Acute kidney failure, unspecified
CPT/HCPCS: 36415; 80053; 85025